=== PATIENT | female | born 1980 | race Caucasian/White ===

== ENCOUNTER 2016-12-05 11:18 | Inpatient (IN) | payer SELFPAY ==
[2016-12-05] VITALS (8 sets, daily range): BP systolic 128–156; BP diastolic 87–110; PULSE 16–107; RESP 16–18; TEMP 98.5–99.6; O2SAT 98–100
[~2016-12-05] VITALS: Ht 160 cm; Wt 86.2 kg
[2016-12-05] MEDS ORDERED: SUBO8MIS SL (11:58)
[2016-12-05 12:00] LABS: BLOOD, URINE TRACE (NEG); GLUCOSE,URINE NEG (NEG); KETONE, URINE 40 mg/dL (NEG); NITRITE,URINE NEG (NEG)
[2016-12-05 12:06] LABS: METHOD OF COLLECTION CLEAN CATCH
[2016-12-05 12:07] LABS: URINE COLOR DARK-YELLOW (YELLW/STRAW)
[2016-12-05 12:08] LABS: BACTERIA, URINE MANY /hpf; COMMENT (UR) CULTURE INDICATED; CULTURE IF INDICATED CULTURE INDICATED; RBC, URINE 0-3 /hpf (0-3); SQUAMOUS EPITHELIAL CELL URINE > 8 /hpf (0-5)
[2016-12-05] MEDS ORDERED: ONDANSETRON HCL 4 MG/2 ML VIAL IV PUSH ONE (12:30)
[2016-12-05] MEDS ORDERED: MORPHINE SULFATE 4 MG/ML INJ IV PUSH ONE ×2 (12:30→14:30)
[2016-12-05] MEDS ORDERED: SODIUM CHLORIDE 0.9% FLUSH 5 ML FLUSH IVF PRN (12:30)
[2016-12-05] MEDS ORDERED: SODIUM CHLOR 0.9% 1000 ML INJ 1,000 ML IV ONE (12:30)
--- NOTE | 2016-12-05 12:58 | PD ---
HPI Chief Complaint: Abdominal Pain Time Seen by Provider: 12:04 Travel History International Travel<30 days: No Contact w/Intl Traveler<30days: No Traveled to known affect area: No History of Present Illness HPI This is a 36-year-old female who presents to the emergency department with nausea, multiple episodes of vomiting and epigastric and right upper quadrant abdominal pain, constant, severe, radiating to her back. She says she's felt feverish today. She's never had pain like this before. She says it hurts to eat and she feels like she has to burp but she can't. She says she has been somewhat constipated but had a bowel movement yesterday. She denies any dysuria , frequency or urgency and denies any vaginal discharge. Rest surgery on her abdomen. She does have a remote history of IV drug use. PFSH Past Medical History Anxiety: Yes Diminished Hearing: No Medical other: Yes (hx drug abuse) Musculoskeletal: Yes (CHRONICK NECK,BACK PAIN) Immunizations Current: Yes Tetanus Vaccination: Unknown Influenza Vaccination: No ?: Not LMP: 3 weeks ago Tubal Ligation: Yes Past Surgical History Section: Yes (X 1) Social History Alcohol Use: Yes (occ) Tobacco Use: Yes (1PPD) Substance Use: Yes (off suboxone since aug denies currently) Allergies-Medications (Allergen,Severity, Reaction): Coded Allergies: No Known Allergies (Verified , 12/05/16) Reported Meds & Prescriptions Reported Meds & Active Scripts Active Reported Suboxone Sublingual Film (Buprenorphine-Naloxone Sublingual Film) 8-2 Mg Film 1 Film SL DAILY Unique ID number required: Review of Systems Except as stated in HPI: all other systems reviewed are Neg Physical Exam Narrative GENERAL: Uncomfortable appearing, writhing in bed SKIN: Warm and dry. HEAD: Atraumatic. Normocephalic. EYES: Pupils equal and round. No injection or drainage. ENT: Moist mucous membranes NECK: Trachea midline. CARDIOVASCULAR: Regular rate and rhythm. No murmur appreciated. RESPIRATORY: Clear to auscultation. Breath sounds equal bilaterally. GASTROINTESTINAL: Abdomen soft, tender to palpation in the right upper quadrant and epigastrium with a positive Church sign MUSCULOSKELETAL: No obvious deformities. NEUROLOGICAL: Awake and alert. No obvious cranial nerve deficits. Moving all extremities. PSYCHIATRIC: Appropriate mood and affect; insight and judgment normal. Data Data Last Documented VS Vital Signs Date Time Temp Pulse Resp B/P Pulse Ox O2 Delivery O2 Flow Rate FiO2 12/05/16 14:24 87 18 153/87 99 Room Air 12/05/16 11:39 99.2 Orders Urinalysis - C+S If Indicated (12/05/16 11:32) Ed Urine Pregnancytest Poc (12/05/16 11:32) Urine Culture (12/05/16 11:50) Complete Blood Count With Diff (12/05/16 12:27) Comprehensive Metabolic Panel (12/05/16 12:27) Lipase (12/05/16 12:27) Iv Access Insert/Monitor (12/05/16 12:27) Ecg Monitoring (12/05/16 12:27) Oximetry (12/05/16 12:27) Sodium Chloride 0.9% Flush (Ns Flush) (12/05/16 12:30) Ed Poc Ultrasound (12/05/16 12:27) Morphine Inj (Morphine Inj) (12/05/16 12:30) Sodium Chlor 0.9% 1000 Ml Inj (Ns 1000 M (12/05/16 12:30) Ondansetron Inj (Zofran Inj) (12/05/16 12:30) Us Abdomen Gallbladder (12/05/16 ) Piperacil-Tazo 3.375 Gm Premix (Zosyn 3. (12/05/16 14:15) Morphine Inj (Morphine Inj) (12/05/16 14:30) Admit Order (Ed Use Only) (12/05/16 14:24) Labs Laboratory Tests Test 12/05/16 12/05/16 11:50 13:15 Urine Collection Type CLEAN CATCH Urine Color DARK-YELLOW Urine Turbidity CLEAR Urine pH 6.0 Urine Specific [place] 1.028 Urine Protein TRACE mg/dL Urine Glucose (UA) NEG mg/dL Urine Ketones 40 mg/dL Urine Occult Blood TRACE Urine Nitrite NEG Urine Bilirubin SMALL Urine Leukocyte Esterase NEG Urine RBC 0-3 /hpf Urine WBC 3-5 /hpf Urine Squamous Epithelial > 8 /hpf Cells Urine Bacteria MANY /hpf Microscopic Urinalysis Comment CULTURE INDICATED Urine Collection Time 11:50 White Blood Count 11.5 TH/MM3 Red Blood Count 5.03 MIL/MM3 Hemoglobin 14.3 GM/DL Hematocrit 43.2 % Mean Corpuscular Volume 85.9 FL Mean Corpuscular Hemoglobin 28.4 PG Mean Corpuscular Hemoglobin 33.1 % Concent Red Cell Distribution Width 11.9 % Platelet Count 228 TH/MM3 Mean Platelet Volume 6.9 FL Neutrophils (%) (Auto) 84.4 % Lymphocytes (%) (Auto) 11.8 % Monocytes (%) (Auto) 3.2 % Eosinophils (%) (Auto) 0.3 % Basophils (%) (Auto) 0.3 % Neutrophils # (Auto) 9.7 TH/MM3 Lymphocytes # (Auto) 1.4 TH/MM3 Monocytes # (Auto) 0.4 TH/MM3 Eosinophils # (Auto) 0.0 TH/MM3 Basophils # (Auto) 0.0 TH/MM3 CBC Comment DIFF FINAL Differential Comment Sodium Level 140 MEQ/L Potassium Level 4.2 MEQ/L Chloride Level 107 MEQ/L Carbon Dioxide Level 23.4 MEQ/L Anion Gap 10 MEQ/L Blood Urea Nitrogen 13 MG/DL Creatinine 0.80 MG/DL Estimat Glomerular Filtration 81 ML/MIN Rate Random Glucose 85 MG/DL Calcium Level 9.0 MG/DL Total Bilirubin 4.5 MG/DL Aspartate Amino Transf 243 U/L (AST/SGOT) Alanine Aminotransferase 238 U/L (ALT/SGPT) Alkaline Phosphatase 144 U/L Total Protein 8.1 GM/DL Albumin 3.9 GM/DL Lipase 211 U/L [facility] Medical Decision Making Medical Screen Exam Complete: Yes Emergency Medical Condition: Yes Interpretation(s) Afebrile, tachycardic, hypertensive Leukocytosis Left shift Total bilirubin is 4.5 Transaminitis with elevated alkaline phosphatase Analysis: Contaminated Last 24 hours Impressions Gall Bladder Ultrasound 12/05/16 0000 Signed Impressions: Service Date/Time: Monday, December 05, 2016 13:24 - CONCLUSION: Abnormal gallbladder probably mild acute cholecystitis in spite of the lack of pain. Ambrocio Sifuentes MD FACR Differential Diagnosis Cholelithiasis, cholecystitis, cholangitis, gastritis, pancreatitis Narrative Course This is a 36 year old female who presents to the emergency department with right upper quadrant and epigastric abdominal pain associated with nausea and vomiting. She is placed on a monitor and an IV was established. Bedside ultrasound demonstrated a sonographic Church sign and some pericholecystic fluid concerning for cholecystitis. Total bilirubin on labs is 4.5 and the patient has a leukocytosis consistent with cholangitis. She was given a dose of IV Zosyn as well as pain control and IV hydration. Formal ultrasound confirms cholecystitis. I spoke to both Dr. gutierrez I didn't on-call for gastroenterology and Dr. Barnes tanner rotary drum continuous process for general surgery and the patient will be transported to the main hospital for ERCP and further continued management. Procedures Procedure Narrative Gallbladder ultrasound: Gallbladder was visualized with a stone at the neck of the gallbladder, positive sonographic Church's sign, gallbladder wall thickness is 0.19 cm, unable to visualize cbd Physician Communication Physician Communication Discussed with Anastacio Pryor, Dr. Jordan and Dr. Barnes Diagnosis Primary Impression: Cholangitis due to bile duct calculus with obstruction Admitting Information Admitting Physician Requests: Admit Socorro Anders MD Dec 05, 2016 12:58
[2016-12-05 13:19] LABS: AUTOMATED NEUTROPHIL # 9.7 TH/MM3 (1.8-7.7); BASOPHIL % 0.3 % (0.0-2.0); EOSINOPHIL % 0.3 % (0.0-4.0); HEMATOCRIT 43.2 % (35.0-46.0); HEMO FLAGS DIFF FINAL; LYMPH % 11.8 % (9.0-44.0); LYMPHOCYTE # 1.4 TH/MM3 (1.0-4.8); MEAN CELL VOLUME 85.9 FL (80.0-100.0); MEAN CORPUSCULAR HEMOGLOBIN 28.4 PG (27.0-34.0); MEAN CORPUSCULAR HGB CONC 33.1 % (32.0-36.0); MONO % 3.2 % (0.0-8.0); NEUT % 84.4 % (16.0-70.0); PLATELET COUNT 228 TH/MM3 (150-450); RED BLOOD COUNT 5.03 MIL/MM3 (4.00-5.30); RED CELL DISTRIBUTION WIDTH 11.9 % (11.6-17.2); WHITE BLOOD COUNT 11.5 TH/MM3 (4.0-11.0)
[2016-12-05 13:29] LABS: CHLORIDE 107 MEQ/L (98-107); POTASSIUM 4.2 MEQ/L (3.5-5.1); SODIUM (NA) 140 MEQ/L (136-145)
[2016-12-05 13:33] LABS: ANION GAP 10 MEQ/L (5-15); BICARBONATE 23.4 MEQ/L (21.0-32.0); BLOOD UREA NITROGEN 13 MG/DL (7-18)
[2016-12-05 13:36] LABS: ALT (GPT) 238 U/L (10-53); AST (GOT) 243 U/L (15-37); GLOMERULAR FILTRATION RATE 81 ML/MIN (>89)
[2016-12-05 13:37] LABS: TOTAL BILIRUBIN ADULT 4.5 MG/DL (0.2-1.0)
[2016-12-05 13:39] LABS: ALKALINE PHOSPHATASE 144 U/L (45-117)
--- NOTE | 2016-12-05 14:03 | RADHPO ---
EXAM DATE/TIME: 12/05/2016 13:24 [facility] COMPARISON: No previous studies available for comparison. INDICATIONS : Right upper quadrant pain. MEDICAL HISTORY : Prior substance use. SURGICAL HISTORY : Tubal ligation. section. ENCOUNTER: Initial ACUITY: 3 days PAIN SCORE: 4/10 LOCATION: Right upper quadrant MEASUREMENTS: LIVER: 12.6 cm length COMMON DUCT: 5 mm RIGHT KIDNEY: 10.9 x 4.7 x 5.2 cm FINDINGS: LIVER: Normal echotexture without focal lesion or ductal dilatation. COMMON DUCT: No intraluminal mass or stone visualized. GALLBLADDER: Multiple gallstones are present in the gallbladder. The wall is thickened with pericholecystic fluid present. Patient is not directly tender over the gallbladder. PANCREAS: The visualized portions are within normal limits. RIGHT KIDNEY: No evidence of hydronephrosis, stone, or mass. CONCLUSION: Abnormal gallbladder probably mild acute cholecystitis in spite of the lack of pain. Ambrocio Sifuentes MD FACR on December 05, 2016 at 14:00 Board Certified Radiologist. This report was verified electronically.
[2016-12-05] MEDS ORDERED: PIPERACIL-TAZO 3.375 GM PREMIX 50 ML IV ONE (14:15)
[2016-12-05] MEDS ORDERED: NICOTINE 14 MG/24 HR PATCH TD ONE (14:30)
[2016-12-05] MEDS ORDERED: ONDANSETRON HCL 4 MG/2 ML VIAL IV PRN (15:00)
[2016-12-05] MEDS ORDERED: SODIUM CHLORIDE 0.9% FLUSH 5 ML FLUSH IV PRN (15:00)
[2016-12-05] MEDS ORDERED: ACETAMINOPHEN 325 MG TAB PO PRN (15:00)
[2016-12-05] MEDS: SODIUM CHLOR 0.9% 1000 ML INJ 1,000 ML IV SCH (15:35)
[2016-12-05] MEDS: KETOROLAC TROMETHAMINE 30 MG/ML (IVP) VIAL IVP PRN ×2 (15:56→23:49)
[2016-12-05] MEDS: HYDROmorphone HCL PF 1 MG/ML VIAL IV PRN ×2 (18:25→22:42)
--- NOTE | 2016-12-05 20:01 | RADRPT ---
EXAM DATE/TIME: 12/05/2016 19:33 [facility] COMPARISON: US ABDOMEN - GALLBLADDER, December 05, 2016, 13:24. INDICATIONS : Cholelithiasis. MEDICAL HISTORY : None. SURGICAL HISTORY : section. ENCOUNTER: Initial ACUITY: 1 day PAIN SCORE: 6/10 LOCATION: Abdomen TECHNIQUE: Multiplanar, multisequence magnetic resonance imaging of the abdomen was performed. High-resolution 3D dataset was utilized to reconstruct maximum-intensity projection (MIP) images. FINDINGS: INTRAHEPATIC BILE DUCTS: Within normal limits. No significant anatomical variant is present. EXTRAHEPATIC BILE DUCTS: The common bile duct measures 1- up to 1.2 cm in width distal duct on one reconstructive image raises the question as to a blunted area in the distal duct potentially representing a small stone GALLBLADDER: There are 2 stones noted in the gallbladder measuring up to 1.7 cm in size. Minimal pericholecystic f luid is appreciated.. LIVER: Normal size and signal intensity. No concerning liver lesion is identified on this non-contrast exam. PANCREAS: The main pancreatic duct is normal in size. There is no significant anatomical variant. Signal inte nsity is within normal limits. No mass is visualized on this non-contrast exam. OTHER: The remaining visualized structures demonstrate no acute abnormality on this non-contrast exam. CONCLUSION: 2 gallstones measuring up to 1.7 cm in size with some minimal pericholecystic fluid suggesting acute cholecystitis. Common bile duct is dilated at one up to 1.2 cm in width with the question as to a blunted distal duct, retained stone on one of the reconstruction MRCP images Sherif Rosario MD on December 05, 2016 at 19:55 Board Certified Radiologist. This report was verified electronically.
[2016-12-05] MEDS: SODIUM CHLORIDE 0.9% FLUSH 5 ML FLUSH IV SCH (20:12)
[2016-12-05] MEDS: PIPERACIL-TAZO 4.5 GM PREMIX 100 ML IV SCH (20:12)
--- NOTE | 2016-12-05 20:33 | PD.CONS ---
HPI Service General surgery Consult Requested By Dr. Colbert Reason for Consult Cholecystitis Primary Care Physician No Primary Care Physician History of Present Illness This is a 36-year-old female who presents with nausea vomiting and abdominal pain. About 3 days ago she began to have epigastric and right upper quadrant abdominal pain at that time associated with persistent dry heaving and vomiting. She had some resolution but the next day when she ate she again had pain and some emesis. This is persisted. The pain radiated to her back. She' s also had chills. She has had dark urine. The patient states that he has similar but less severe symptoms about twice a year, most recently 8 months ago. She was evaluated in the emergency department and noted to have leukocytosis as well as elevated liver function enzymes with a bilirubin of 4.5. Ultrasound of the gallbladder showed gallstones and wall thickening with some pericholecystic fluid. Gastroenterology has been consulted and an MRCP ordered. Review of Systems Constitutional: COMPLAINS OF: Fever, Chills Eyes: DENIES: Eye inflammation, Eye pain Respiratory: DENIES: Cough, Shortness of breath Gastrointestinal: COMPLAINS OF: Abdominal pain, Vomiting Integumentary: DENIES: Pruritus, Rash Neurologic: DENIES: Headache, Localized weakness Past Family Social History Past Medical History History of drug abuse Past Surgical History Reported Medications Currently none Allergies: Coded Allergies: No Known Allergies (Verified , 12/05/16) Active Ordered Medications Current Medications Medications (Trade) Dose Ordered Sig/Kathrine Route Start Time Stop Time Status Last Admin (NS 1000 ml Inj) 1,000 ml @ 100 mls/hr Q10H IV 12/05/16 15:00 12/05/16 15:35 (NS Flush) 2 ml UNSCH PRN IV 12/05/16 15:00 IV Flush 2 ml 2 ml BID IV 12/05/16 21:00 (Zosyn 4.5 Gm Premix) 100 ml @ 200 mls/hr Q6H IV 12/05/16 20:00 12/05/16 20:12 (Zofran Inj) 4 mg Q6H PRN IV 12/05/16 15:00 (Tylenol) 650 mg Q6H PRN PO 12/05/16 15:00 (Toradol Inj) 15 mg Q6H PRN IVP 12/05/16 15:00 12/05/16 15:56 (Dilaudid Pf Inj) 1 mg Q4H PRN IV 12/05/16 15:00 12/05/16 18:25 Family History Noncontributory Social History She has not had any alcohol for 3 months. She has a history of present drug abuse and has also been on Suboxone in the past but is currently not. She smokes 1 pack of cigarettes daily. Physical Exam Vital Signs Vital Signs Date Time Temp Pulse Resp B/P Pulse Ox O2 Delivery O2 Flow Rate FiO2 12/05/16 16:53 99.6 85 16 141/91 100 12/05/16 15:51 88 18 128/92 99 Room Air 12/05/16 14:24 87 18 153/87 99 Room Air 12/05/16 13:09 83 18 149/91 100 Room Air 12/05/16 13:08 98 Room Air 12/05/16 11:58 107 18 154/91 98 Room Air 12/05/16 11:39 99.2 101 16 156/110 99 Physical Exam GENERAL: Awake and alert. No acute distress. Cooperative. HEAD: Normocephalic. Atraumatic. EYES: Pupils equal round and reactive to light bilaterally. No scleral icterus. CHEST: Lungs clear to auscultation bilaterally with no wheezing or rhonchi. No respiratory distress. CARDIOVASCULAR: Regular rate and rhythm. ABDOMEN: Tender in the epigastrium and right upper quadrant with positive Church sign. No rebound or guarding. Otherwise soft and nontender. EXTREMITIES: No cyanosis or edema. SKIN: Warm, dry, nonjaundiced. Laboratory Laboratory Tests Test 12/05/16 12/05/16 11:50 13:15 Urine Collection Type CLEAN CATCH Urine Color DARK-YELLOW Urine Turbidity CLEAR Urine pH 6.0 Urine Specific [place] 1.028 Urine Protein TRACE Urine Glucose (UA) NEG Urine Ketones 40 Urine Occult Blood TRACE Urine Nitrite NEG Urine Bilirubin SMALL Urine Leukocyte Esterase NEG Urine RBC 0-3 Urine WBC 3-5 Urine Squamous Epithelial > 8 Cells Urine Bacteria MANY Microscopic Urinalysis Comment CULTURE INDICATED Urine Collection Time 11:50 White Blood Count 11.5 Red Blood Count 5.03 Hemoglobin 14.3 Hematocrit 43.2 Mean Corpuscular Volume 85.9 Mean Corpuscular Hemoglobin 28.4 Mean Corpuscular Hemoglobin 33.1 Concent Red Cell Distribution Width 11.9 Platelet Count 228 Mean Platelet Volume 6.9 Neutrophils (%) (Auto) 84.4 Lymphocytes (%) (Auto) 11.8 Monocytes (%) (Auto) 3.2 Eosinophils (%) (Auto) 0.3 Basophils (%) (Auto) 0.3 Neutrophils # (Auto) 9.7 Lymphocytes # (Auto) 1.4 Monocytes # (Auto) 0.4 Eosinophils # (Auto) 0.0 Basophils # (Auto) 0.0 CBC Comment DIFF FINAL Differential Comment Sodium Level 140 Potassium Level 4.2 Chloride Level 107 Carbon Dioxide Level 23.4 Anion Gap 10 Blood Urea Nitrogen 13 Creatinine 0.80 Estimat Glomerular Filtration 81 Rate Random Glucose 85 Calcium Level 9.0 Total Bilirubin 4.5 Aspartate Amino Transf 243 (AST/SGOT) Alanine Aminotransferase 238 (ALT/SGPT) Alkaline Phosphatase 144 Total Protein 8.1 Albumin 3.9 Lipase 211 Date/Time Procedure Status Source Growth 12/05/16 11:50 Urine Culture Received Urine Clean Catch Pending Result Diagram: 12/05/16 1315 12/05/16 1315 Imaging Last Impressions Gall Bladder Ultrasound 12/05/16 0000 Signed Impressions: Service Date/Time: Monday, December 05, 2016 13:24 - CONCLUSION: Abnormal gallbladder probably mild acute cholecystitis in spite of the lack of pain. Ambrocio Sifuentes MD FACR Cholangiopancreatography MRI 12/05/16 0000 Signed Impressions: Service Date/Time: Monday, December 05, 2016 19:33 - CONCLUSION: 2 gallstones measuring up to 1.7 cm in size with some minimal pericholecystic fluid suggesting acute cholecystitis. Common bile duct is dilated at one up to 1.2 cm in width with the question as to a blunted distal duct, retained stone on one of the reconstruction MRCP images Sherif Rosario MD Assessment and Plan Assessment and Plan 36-year-old female with obstructive jaundice and mild cholecystitis. MRCP has been ordered to evaluate for possible common bile duct stone. Agree with IV antibiotics. The patient will benefit from cholecystectomy when confirmation by MRCP or ERCP of no stones in the common bile duct. I discussed her current disease course as well as possible need for ERCP and the details of laparoscopic and possible open cholecystectomy. She understands and desires to proceed. I will follow results of MRCP and a.m. labs. Cameron,Beny ARROYO Dec 05, 2016 20:33
[2016-12-06] VITALS: BP 141/85; PULSE 93; RESP 16; TEMP 98.7; O2SAT 98
[2016-12-06] MEDS: SODIUM CHLOR 0.9% 1000 ML INJ 1,000 ML IV SCH ×3 (01:00→21:00)
[2016-12-06] MEDS: PIPERACIL-TAZO 4.5 GM PREMIX 100 ML IV SCH ×4 (01:37→22:34)
[2016-12-06] MEDS: HYDROmorphone HCL PF 1 MG/ML VIAL IV PRN ×5 (03:10→22:33)
[2016-12-06 04:10] VITALS: BP 131/72; PULSE 72; RESP 16; TEMP 97.7; O2SAT 98
[2016-12-06] MEDS: KETOROLAC TROMETHAMINE 30 MG/ML (IVP) VIAL IVP PRN (05:54)
[2016-12-06 06:55] LABS: AUTOMATED NEUTROPHIL # 6.1 TH/MM3 (1.8-7.7); BASOPHIL % 0.5 % (0.0-2.0); EOSINOPHIL # 0.1 TH/MM3 (0-0.4); EOSINOPHIL % 1.7 % (0.0-4.0); HEMATOCRIT 36.9 % (35.0-46.0); HEMO FLAGS DIFF FINAL; LYMPH % 20.9 % (9.0-44.0); LYMPHOCYTE # 1.8 TH/MM3 (1.0-4.8); MEAN CELL VOLUME 86.1 FL (80.0-100.0); MEAN CORPUSCULAR HEMOGLOBIN 30.7 PG (27.0-34.0); MEAN CORPUSCULAR HGB CONC 35.7 % (32.0-36.0); MONO % 5.6 % (0.0-8.0); NEUT % 71.3 % (16.0-70.0); PLATELET COUNT 159 TH/MM3 (150-450); RED BLOOD COUNT 4.28 MIL/MM3 (4.00-5.30); RED CELL DISTRIBUTION WIDTH 12.8 % (11.6-17.2); WHITE BLOOD COUNT 8.5 TH/MM3 (4.0-11.0)
[2016-12-06 07:09] VITALS: BP 133/82; PULSE 76; RESP 17; TEMP 97.7; O2SAT 97
[2016-12-06 07:12] LABS: ALT (GPT) 343 U/L (10-53); ANION GAP 11 MEQ/L (5-15); AST (GOT) 226 U/L (15-37); BICARBONATE 21.9 MEQ/L (21.0-32.0); CHLORIDE 106 MEQ/L (98-107); GLOMERULAR FILTRATION RATE 82 ML/MIN (>89); SODIUM (NA) 139 MEQ/L (136-145)
[2016-12-06 07:14] LABS: ALKALINE PHOSPHATASE 186 U/L (45-117); TOTAL BILIRUBIN ADULT 7.6 MG/DL (0.2-1.0)
[2016-12-06 07:15] LABS: BLOOD UREA NITROGEN 15 MG/DL (7-18)
[2016-12-06] MEDS: SODIUM CHLORIDE 0.9% FLUSH 5 ML FLUSH IV SCH ×2 (09:00→21:00)
--- NOTE | 2016-12-06 09:57 | HHI.HP ---
[facility] Service [facility] Primary Care Physician No Primary Care Physician Admission Diagnosis cholangitis Diagnoses: (1) Acute cholecystitis Diagnosis: Principal Chief Complaint: abdominal pain Travel History International Travel<30 Days: No Contact w/Intl Traveler <30 Da: No Traveled to Known Affected Are: No History of Present Illness patient is a 36 y/o female with no significant past medical history who presented with abdominal pain. she says that the pain started 3-4 days ago. pain was more or less epigastric with some radiation to the RUQ. pain was moderate in intensity. it was associated with nausea and vomiting. she says that the pain initially subsided but when she tried to eat , the pain came back and got worse. she had a low grade fever and chills at home. she says that she had episodes of this type of abdominal pain in the past but it didn't stay that long. Review of Systems Constitutional: COMPLAINS OF: Fever, Chills, DENIES: Weight loss, Night Sweats Eyes: DENIES: Blurred vision, Diplopia, Vision loss, Double Vision Ears, nose, mouth, throat: DENIES: Tinnitus, Vertigo, Throat pain, Epistaxis Respiratory: DENIES: Apneas, Cough, Snoring, Wheezing, Hemoptysis, Sputum production, Shortness of breath Cardiovascular: DENIES: Chest pain, Palpitations, Syncope, Dyspnea on Exertion , PND, Lower Extremity Edema, Orthopnea, Claudication Gastrointestinal: COMPLAINS OF: Abdominal pain, Nausea, Vomiting, DENIES: Black stools, Bloody stools, Constipation, Diarrhea, Difficulty Swallowing, Anorexia Genitourinary: DENIES: Urinary frequency, Urgency, Hematuria, Dysuria Musculoskeletal: DENIES: Joint pain, Muscle aches, Stiffness, Joint Swelling Integumentary: DENIES: Rash Neurologic: DENIES: Abnormal gait, Headache, Localized weakness, Paresthesias, Seizures, Speech Problems, Tremor, Poor Balance Psychiatric: DENIES: Anxiety, Confusion, Mood changes, Depression, Hallucinations, Agitation, Suicidal Ideation, Homicidal Ideation, Delusions Past Family Social History Past Medical History not significant. Past Surgical History dental surgery. Reported Medications none reported. Allergies: Coded Allergies: No Known Allergies (Verified , 12/05/16) Active Ordered Medications Current Medications IV Flush (NS Flush) 2 ml UNSCH PRN IVF FLUSH AFTER USING IV ACCESS; Start at 12:30; Stop 12/05/16 at 15:02; Status DC Morphine Sulfate 4 mg 4 mg ONCE ONCE IV PUSH Last administered on 12/05/16 13: 00; Start 12/05/16 at 12:30; Stop 12/05/16 at 12:31; Status DC Sodium Chloride (NS 1000 ml Inj) 1,000 ml @ 999 mls/hr BOLUS ONCE IV Last administered on 12/05/16 13:00; Start 12/05/16 at 12:30; Stop 12/05/16 at 13:30; Status DC Ondansetron HCl 4 mg 4 mg ONCE ONCE IV PUSH Last administered on 12/05/16 13: 00; Start 12/05/16 at 12:30; Stop 12/05/16 at 12:31; Status DC Piperacillin Sod/ Tazobactam Sod (Zosyn 3.375 Gm Premix) 50 ml @ 100 mls/hr ONCE ONCE IV Last administered on 12/05/16 14:12; Start 12/05/16 at 14:15; Stop 12/05/16 at 14:44; Status DC Morphine Sulfate (Morphine Inj) 4 mg ONCE ONCE IV PUSH Last administered on 14:20; Start 12/05/16 at 14:30; Stop 12/05/16 at 14:31; Status DC Nicotine 1 patch 1 patch ONCE ONCE TD Last administered on 12/05/16 14:46; Start 12/05/16 at 14:30; Stop 12/05/16 at 14:31; Status DC Sodium Chloride (NS 1000 ml Inj) 1,000 ml @ 100 mls/hr Q10H IV Last administered on 12/05/16 15:35; Start 12/05/16 at 15:00 IV Flush (NS Flush) 2 ml UNSCH PRN IV FLUSH AFTER USING IV ACCESS; Start at 15:00 IV Flush 2 ml 2 ml BID IV ; Start 12/05/16 at 21:00 Piperacillin Sod/ Tazobactam Sod (Zosyn 4.5 Gm Premix) 100 ml @ 200 mls/hr Q6H IV Last administered on 12/06/16 01:37; Start 12/05/16 at 20:00 Ondansetron HCl (Zofran Inj) 4 mg Q6H PRN IV NAUSEA OR VOMITING; Start 12/05/16 at 15:00 Acetaminophen (Tylenol) 650 mg Q6H PRN PO FEVER >101F, headache; Start 12/05/16 at 15:00 Ketorolac Tromethamine (Toradol Inj) 15 mg Q6H PRN IVP PAIN SCALE 6 TO 10 Last administered on 12/06/16 05:54; Start 12/05/16 at 15:00 Hydromorphone HCl (Dilaudid Pf Inj) 1 mg Q4H PRN IV BREAKTHROUGH PAIN Last administered on 12/06/16 07:50; Start 12/05/16 at 15:00 Family History hypertension in father and diabetes in mother. Physical Exam Vital Signs Vital Signs Date Time Temp Pulse Resp B/P Pulse Ox O2 Delivery O2 Flow Rate FiO2 12/06/16 07:09 97.7 76 17 133/82 97 12/06/16 04:10 97.7 72 16 131/72 98 12/06/16 00:00 98.7 93 16 141/85 98 12/05/16 20:10 98.5 85 16 145/93 99 12/05/16 16:53 99.6 85 16 141/91 100 12/05/16 15:51 88 18 128/92 99 Room Air 12/05/16 14:24 87 18 153/87 99 Room Air 12/05/16 13:09 83 18 149/91 100 Room Air 12/05/16 13:08 98 Room Air 12/05/16 11:58 107 18 154/91 98 Room Air 12/05/16 11:39 99.2 101 16 156/110 99 Physical Exam GENERAL: This is a well-nourished, well-developed patient, in no apparent distress. SKIN: No rashes, ecchymoses or lesions. Cool and dry. HEAD: Atraumatic. Normocephalic. No temporal or scalp tenderness. EYES: Pupils equal round and reactive. Extraocular motions intact. No scleral icterus. No injection or drainage. ENT: Nose without bleeding, purulent drainage or septal hematoma. Throat without erythema, tonsillar hypertrophy or exudate. Uvula midline. Airway patent. NECK: Trachea midline. No JVD or lymphadenopathy. Supple, nontender, no meningeal signs. CARDIOVASCULAR: Regular rate and rhythm without murmurs, gallops, or rubs. RESPIRATORY: Clear to auscultation. Breath sounds equal bilaterally. No wheezes , rales, or rhonchi. GASTROINTESTINAL: Abdomen soft, epigastric and RUQ tenderness, nondistended. No hepato-splenomegaly, or palpable masses. No guarding. MUSCULOSKELETAL: Extremities without clubbing, cyanosis, or edema. No joint tenderness, effusion, or edema noted. No calf tenderness. Negative Homans sign bilaterally. NEUROLOGICAL: Awake and alert. Cranial nerves II through XII intact. Motor and sensory grossly within normal limits. Five out of 5 muscle strength in all muscle groups. Normal speech. Laboratory Laboratory Tests Test 12/05/16 12/05/16 12/06/16 11:50 13:15 06:23 Urine Collection Type CLEAN CATCH Urine Color DARK-YELLOW Urine Turbidity CLEAR Urine pH 6.0 Urine Specific [place] 1.028 Urine Protein TRACE Urine Glucose (UA) NEG Urine Ketones 40 Urine Occult Blood TRACE Urine Nitrite NEG Urine Bilirubin SMALL Urine Leukocyte Esterase NEG Urine RBC 0-3 Urine WBC 3-5 Urine Squamous Epithelial > 8 Cells Urine Bacteria MANY Microscopic Urinalysis Comment CULTURE INDICATED Urine Collection Time 11:50 White Blood Count 11.5 8.5 Red Blood Count 5.03 4.28 Hemoglobin 14.3 13.1 Hematocrit 43.2 36.9 Mean Corpuscular Volume 85.9 86.1 Mean Corpuscular Hemoglobin 28.4 30.7 Mean Corpuscular Hemoglobin 33.1 35.7 Concent Red Cell Distribution Width 11.9 12.8 Platelet Count 228 159 Mean Platelet Volume 6.9 7.2 Neutrophils (%) (Auto) 84.4 71.3 Lymphocytes (%) (Auto) 11.8 20.9 Monocytes (%) (Auto) 3.2 5.6 Eosinophils (%) (Auto) 0.3 1.7 Basophils (%) (Auto) 0.3 0.5 Neutrophils # (Auto) 9.7 6.1 Lymphocytes # (Auto) 1.4 1.8 Monocytes # (Auto) 0.4 0.5 Eosinophils # (Auto) 0.0 0.1 Basophils # (Auto) 0.0 0.0 CBC Comment DIFF FINAL DIFF FINAL Differential Comment Sodium Level 140 139 Potassium Level 4.2 4.0 Chloride Level 107 106 Carbon Dioxide Level 23.4 21.9 Anion Gap 10 11 Blood Urea Nitrogen 13 15 Creatinine 0.80 0.79 Estimat Glomerular Filtration 81 82 Rate Random Glucose 85 88 Calcium Level 9.0 8.5 Total Bilirubin 4.5 7.6 Aspartate Amino Transf 243 226 (AST/SGOT) Alanine Aminotransferase 238 343 (ALT/SGPT) Alkaline Phosphatase 144 186 Total Protein 8.1 6.2 Albumin 3.9 3.4 Lipase 211 Date/Time Procedure Status Source Growth 12/05/16 11:50 Urine Culture Received Urine Clean Catch Pending Result Diagram: 12/06/16 0623 12/06/16 0623 Imaging Last Impressions Gall Bladder Ultrasound 12/05/16 0000 Signed Impressions: Service Date/Time: Monday, December 05, 2016 13:24 - CONCLUSION: Abnormal gallbladder probably mild acute cholecystitis in spite of the lack of pain. mAbrocio Sifuentes MD FACR Cholangiopancreatography MRI 12/05/16 0000 Signed Impressions: Service Date/Time: Monday, December 05, 2016 19:33 - CONCLUSION: 2 gallstones measuring up to 1.7 cm in size with some minimal pericholecystic fluid suggesting acute cholecystitis. Common bile duct is dilated at one up to 1.2 cm in width with the question as to a blunted distal duct, retained stone on one of the reconstruction MRCP images Sherif Rosario MD Assessment and Plan Assessment and Plan A/P - acute cholecystitis/ elevated LFT's keep NPO and continue IV fluid and IV antibiotic. continue pain control. surgery consult appreciated- awaiting GI evaluation. Discussed Condition With the patient. Physician Certification 2 Midnight Certification Type: Admission for Inpatient Services Order for Inpatient Services The services are ordered in accordance with Medicare regulations or non- Medicare payer requirements, as applicable. In the case of services not specified as inpatient-only, they are appropriately provided as inpatient services in accordance with the 2-midnight benchmark. Estimated LOS (days): 2 days is the estimated time the patient will need to remain in the hospital, assuming treatment plan goals are met and no additional complications. Post-Hospital Plan: Home Katty Atkins MD Dec 06, 2016 09:56
[2016-12-06] MEDS ORDERED: IOHEXOL 350 MG/ML 100 ML BTL (for RAD DIAG) OTHER ONE (10:45)
[2016-12-06] MEDS ORDERED: GLUCAGON 1 MG/ML VIAL IV ONE (10:45)
--- NOTE | 2016-12-06 11:37 | MR ---
cc: JACOB ROCA MOHAMMADREZA MD DATE OF : 1980 REFERRING PHYSICIAN: Dr. Atkins DATE: 12/06/2016 PROCEDURE: ERCP with sphincterotomy, stone extraction and stent placement. INDICATIONS: The patient is a 36 year-old lady who had dilated common bile duct, elevated liver function tests, symptom of cholangitis. PROCEDURE NOTE After informing the patient of the procedure and complication, consent was signed. The patient was placed on her left her back. She was intubated by anesthesia. After adequate sedation, she was placed on her abdomen in prone position. The scope was placed in the mouth advanced under video guidance to the second portion of the duodenum. The ampulla was identified. Cholangiogram was performed and there was a filling defect in the distal duct. Sphincterotomy was done sweeping the duct with balloon size 15 millimeter, revealed one stone. The patient was passing white material consistent with pus. Because of that, I placed a stent. There was not significant flow of bile, so I placed a stent size 10 Thai, 9 cm without any difficulty. The procedure terminated at that time. FINDINGS EGD, limited exam normal. Pancreatic duct normal. Common bile duct dilated with filling defect consistent with stone, status post removal and stent placement RECOMMENDATIONS 1. N.p.o. 2. Lap torrey. 3. LFTs and CBC in the morning 4. ERCP with stent removal in one month. MD JUSTIN Arizmendi/GORDY /11:24 AM /11:29 AM
[2016-12-06] MEDS ORDERED: *MEPERIDINE 25 MG INJ VIAL PERIprocedural Use ONLY ONE (11:41)
[2016-12-06] MEDS ORDERED: DO NOT ADM ANY ANTICOAGULANT DRUGS XX PRN (12:00)
[2016-12-06] MEDS ORDERED: PROPOFOL 200 MG/20 ML AMP IV ONE (12:14)
--- NOTE | 2016-12-06 12:15 | RADRPT ---
EXAM DATE/TIME: 12/06/2016 10:47 [place] COMPARISON: MRCP W/O CONTRAST, December 05, 2016, 19:33. INDICATIONS : Obstruction. FLUORO TIME: 6:14 minutes IMAGE COUNT: 4 CONTRAST: Instilled by Ordering Physician MEDICAL HISTORY : None. SURGICAL HISTORY : section. ENCOUNTER: Initial ACUITY: 1 day PAIN SCORE: Non-responsive. LOCATION: Abdomen. FINDINGS: An ERCP and stent placement was performed. Four films were submitted. Balloon occlusion of the common duct reveals no residual common duct stones. Stent would appear to b e in good position. CONCLUSION: Biliary stent in good position. Ambrocio Sifuentes MD FACR on December 06, 2016 at 11:56 Board Certified Radiologist. This report was verified electronically.
--- NOTE | 2016-12-06 13:31 | HHI.PR ---
Subjective Subjective Notes The patient is status post ERCP with stone extraction and placement of a stent earlier today. She is still somewhat groggy and has complaints of pain in her throat, but minimal abdominal pain. She has had no nausea or vomiting. Objective Vitals/I&O Vital Signs Date Time Temp Pulse Resp B/P Pulse Ox O2 Delivery O2 Flow Rate FiO2 12/06/16 12:00 99.2 88 16 117/89 97 Room Air Labs Laboratory Tests Test 12/06/16 06:23 White Blood Count 8.5 Red Blood Count 4.28 Hemoglobin 13.1 Hematocrit 36.9 Mean Corpuscular Volume 86.1 Mean Corpuscular Hemoglobin 30.7 Mean Corpuscular Hemoglobin 35.7 Concent Red Cell Distribution Width 12.8 Platelet Count 159 Mean Platelet Volume 7.2 Neutrophils (%) (Auto) 71.3 Lymphocytes (%) (Auto) 20.9 Monocytes (%) (Auto) 5.6 Eosinophils (%) (Auto) 1.7 Basophils (%) (Auto) 0.5 Neutrophils # (Auto) 6.1 Lymphocytes # (Auto) 1.8 Monocytes # (Auto) 0.5 Eosinophils # (Auto) 0.1 Basophils # (Auto) 0.0 CBC Comment DIFF FINAL Differential Comment Sodium Level 139 Potassium Level 4.0 Chloride Level 106 Carbon Dioxide Level 21.9 Anion Gap 11 Blood Urea Nitrogen 15 Creatinine 0.79 Estimat Glomerular Filtration 82 Rate Random Glucose 88 Calcium Level 8.5 Total Bilirubin 7.6 Aspartate Amino Transf 226 (AST/SGOT) Alanine Aminotransferase 343 (ALT/SGPT) Alkaline Phosphatase 186 Total Protein 6.2 Albumin 3.4 Date/Time Procedure Status Source Growth 12/05/16 11:50 Urine Culture - Preliminary Resulted Urine Clean Catch IMMATURE GROWTH - REINCUBATE Radiology Last Impressions Gall Bladder Ultrasound 12/05/16 0000 Signed Impressions: Service Date/Time: Monday, December 05, 2016 13:24 - CONCLUSION: Abnormal gallbladder probably mild acute cholecystitis in spite of the lack of pain. Ambrocio Sifuentes MD FACR Cholangiopancreatography MRI 12/05/16 0000 Signed Impressions: Service Date/Time: Monday, December 05, 2016 19:33 - CONCLUSION: 2 gallstones measuring up to 1.7 cm in size with some minimal pericholecystic fluid suggesting acute cholecystitis. Common bile duct is dilated at one up to 1.2 cm in width with the question as to a blunted distal duct, retained stone on one of the reconstruction MRCP images Sherif Rosario MD Cardiovascular: Regular Lungs: Clear Abdomen: Non-distended, Non-tender, BS normal Extremities: No edema A/P Assessment and Plan The patient came into the hospital with gallstone pancreatitis and choledocholithiasis. She is now status post stone extraction from the common bile duct by Dr. Jordan; he also placed a common bile duct stent. She may be a candidate for laparoscopic cholecystectomy in the morning. I will therefore make her nothing by mouth after midnight and have obtained an operative permit. Dr. Barnes will see her in the morning and decide as to whether surgery will be performed tomorrow or at a later time. Abdiel Loyola MD Dec 06, 2016 13:31
[2016-12-06 15:00] VITALS: BP 124/68; PULSE 97; RESP 17; TEMP 99.2; O2SAT 97
[2016-12-06 20:55] VITALS: BP 124/73; PULSE 88; RESP 16; TEMP 99.1; O2SAT 97
[2016-12-07 00:44] VITALS: BP 112/66; PULSE 80; RESP 16; TEMP 96.7; O2SAT 96
[2016-12-07] MEDS: PIPERACIL-TAZO 4.5 GM PREMIX 100 ML IV SCH ×4 (00:49→22:02)
[2016-12-07] MEDS: KETOROLAC TROMETHAMINE 30 MG/ML (IVP) VIAL IVP PRN ×4 (00:53→21:05)
[2016-12-07] MEDS: HYDROmorphone HCL PF 1 MG/ML VIAL IV PRN ×5 (03:53→21:00)
[2016-12-07 07:04] LABS: AUTOMATED NEUTROPHIL # 5.3 TH/MM3 (1.8-7.7); BASOPHIL % 0.4 % (0.0-2.0); EOSINOPHIL # 0.1 TH/MM3 (0-0.4); EOSINOPHIL % 1.7 % (0.0-4.0); HEMO FLAGS DIFF FINAL; LYMPHOCYTE # 1.9 TH/MM3 (1.0-4.8); MEAN CELL VOLUME 86.9 FL (80.0-100.0); MEAN CORPUSCULAR HEMOGLOBIN 30.3 PG (27.0-34.0); MEAN CORPUSCULAR HGB CONC 34.8 % (32.0-36.0); MONO % 6.2 % (0.0-8.0); NEUT % 67.7 % (16.0-70.0); PLATELET COUNT 161 TH/MM3 (150-450); RED BLOOD COUNT 4.03 MIL/MM3 (4.00-5.30); WHITE BLOOD COUNT 7.8 TH/MM3 (4.0-11.0)
[2016-12-07 07:21] LABS: INDIRECT BILIRUBIN 1.6 MG/DL (0.0-0.8); TOTAL BILIRUBIN ADULT 5.5 MG/DL (0.2-1.0)
[2016-12-07 07:27] VITALS: BP 102/61; PULSE 71; RESP 16; TEMP 96.8; O2SAT 97
[2016-12-07] MEDS: SODIUM CHLORIDE 0.9% FLUSH 5 ML FLUSH IV SCH ×2 (08:02→22:03)
[2016-12-07] MEDS: SODIUM CHLOR 0.9% 1000 ML INJ 1,000 ML IV SCH ×2 (08:02→16:23)
--- NOTE | 2016-12-07 08:20 | HHI.PR ---
Subjective Remarks resting comfortably with no distress. epigastric pain is better. no nausea or vomiting. afebrile. Objective Vitals Vital Signs Date Time Temp Pulse Resp B/P Pulse Ox O2 Delivery O2 Flow Rate FiO2 12/07/16 00:44 96.7 80 16 112/66 96 12/06/16 20:55 99.1 88 16 124/73 97 12/06/16 15:00 99.2 97 17 124/68 97 12/06/16 12:00 99.2 88 16 117/89 97 Room Air 12/06/16 11:45 97 15 126/89 96 Room Air 12/06/16 11:30 99.3 102 11 135/86 95 Room Air I/O 12/06/16 12/06/16 12/06/16 12/07/16 12/07/16 12/07/16 07:00 15:00 23:00 07:00 15:00 23:00 Intake Total 0 ml 800 ml 0 ml 0 ml Output Total 10 ml Balance 0 ml 790 ml 0 ml 0 ml Intake Oral 0 ml 0 ml 0 ml 0 ml IV Total 100 ml Other 700 ml Output Estimated Blood Loss 10 ml # Voids 3 3 6 6 # Bowel Movements 0 0 0 0 Result Diagram: 12/07/16 0631 12/06/16 0623 Imaging Last Impressions GI Procedure 12/06/16 0000 Signed Impressions: Service Date/Time: Tuesday, December 06, 2016 10:47 - CONCLUSION: Biliary stent in good position. Ambrocio Sifuentes MD FACR Gall Bladder Ultrasound 12/05/16 0000 Signed Impressions: Service Date/Time: Monday, December 05, 2016 13:24 - CONCLUSION: Abnormal gallbladder probably mild acute cholecystitis in spite of the lack of pain. Ambrocio Sifuentes MD FACR Cholangiopancreatography MRI 12/05/16 0000 Signed Impressions: Service Date/Time: Monday, December 05, 2016 19:33 - CONCLUSION: 2 gallstones measuring up to 1.7 cm in size with some minimal pericholecystic fluid suggesting acute cholecystitis. Common bile duct is dilated at one up to 1.2 cm in width with the question as to a blunted distal duct, retained stone on one of the reconstruction MRCP images Sherif Rosario MD Objective Remarks GENERAL: This is a well-nourished, well-developed patient, in no apparent distress. CARDIOVASCULAR: Regular rate and irregular rhythm without murmurs, gallops, or rubs. RESPIRATORY: Clear to auscultation. Breath sounds equal bilaterally. No wheezes , rales, or rhonchi. GASTROINTESTINAL: Abdomen soft, mild epigastric tenderness, nondistended. Normal, active bowel sounds MUSCULOSKELETAL: Extremities without clubbing, cyanosis, or edema. NEURO: Alert & Oriented x4 to person, place, time, situation. Moves all ext x4 Procedures ERCP Medications and IVs Current Medications IV Flush (NS Flush) 2 ml UNSCH PRN IVF FLUSH AFTER USING IV ACCESS; Start at 12:30; Stop 12/05/16 at 15:02; Status DC Morphine Sulfate 4 mg 4 mg ONCE ONCE IV PUSH Last administered on 12/05/16 13: 00; Start 12/05/16 at 12:30; Stop 12/05/16 at 12:31; Status DC Sodium Chloride (NS 1000 ml Inj) 1,000 ml @ 999 mls/hr BOLUS ONCE IV Last administered on 12/05/16 13:00; Start 12/05/16 at 12:30; Stop 12/05/16 at 13:30; Status DC Ondansetron HCl 4 mg 4 mg ONCE ONCE IV PUSH Last administered on 12/05/16 13: 00; Start 12/05/16 at 12:30; Stop 12/05/16 at 12:31; Status DC Piperacillin Sod/ Tazobactam Sod (Zosyn 3.375 Gm Premix) 50 ml @ 100 mls/hr ONCE ONCE IV Last administered on 12/05/16 14:12; Start 12/05/16 at 14:15; Stop 12/05/16 at 14:44; Status DC Morphine Sulfate (Morphine Inj) 4 mg ONCE ONCE IV PUSH Last administered on 14:20; Start 12/05/16 at 14:30; Stop 12/05/16 at 14:31; Status DC Nicotine 1 patch 1 patch ONCE ONCE TD Last administered on 12/05/16 14:46; Start 12/05/16 at 14:30; Stop 12/05/16 at 14:31; Status DC Sodium Chloride (NS 1000 ml Inj) 1,000 ml @ 100 mls/hr Q10H IV Last administered on 12/07/16 08:02; Start 12/05/16 at 15:00 IV Flush (NS Flush) 2 ml UNSCH PRN IV FLUSH AFTER USING IV ACCESS; Start at 15:00 IV Flush 2 ml 2 ml BID IV Last administered on 12/06/16 21:00; Start 12/05/16 at 21:00 Piperacillin Sod/ Tazobactam Sod (Zosyn 4.5 Gm Premix) 100 ml @ 200 mls/hr Q6H IV Last administered on 12/07/16 08:01; Start 12/05/16 at 20:00 Ondansetron HCl (Zofran Inj) 4 mg Q6H PRN IV NAUSEA OR VOMITING; Start 12/05/16 at 15:00 Acetaminophen (Tylenol) 650 mg Q6H PRN PO FEVER >101F, headache; Start 12/05/16 at 15:00 Ketorolac Tromethamine (Toradol Inj) 15 mg Q6H PRN IVP PAIN SCALE 6 TO 10 Last administered on 12/07/16 07:52; Start 12/05/16 at 15:00 Hydromorphone HCl (Dilaudid Pf Inj) 1 mg Q4H PRN IV BREAKTHROUGH PAIN Last administered on 12/07/16 07:52; Start 12/05/16 at 15:00 Meperidine HCl (*DEMEROL INJ PERIprocedural ONLY) 25 mg STK-MED ONCE .ROUTE Last administered on 12/06/16 11:41; Start 12/06/16 at 11:41; Stop 12/06/16 at 11: 42; Status DC Fentanyl Citrate (fentaNYL INJ) 200 mcg STK-MED ONCE .ROUTE ; Start 12/06/16 at 11:46; Stop 12/06/16 at 11:47; Status DC Miscellaneous Information ALL NURSING DEPARTME... UNSCH PRN XX SEE LABEL COMMENTS; Start 12/06/16 at 12:00; Stop 12/07/16 at 11:59 Iohexol (Omnipaque 350 Inj) 100 ml STK-MED ONCE OTHER Last administered on 10:45; Start 12/06/16 at 10:45; Stop 12/06/16 at 12:12; Status DC Glucagon (Glucagon Inj) 1 mg STK-MED ONCE IV Last administered on 12/06/16t 10: 45; Start 12/06/16 at 10:45; Stop 12/06/16 at 12:12; Status DC Propofol (Diprivan 200 Mg/20 ml Inj) 200 mg STK-MED ONCE IV ; Start 12/06/16 at 12:14; Stop 12/06/16 at 12:15; Status DC A/P Assessment and Plan A/P - acute cholecystitis/pancreatitis/ elevated LFT's s/p ERCP with sphincterotomy, stone extraction and stent placement. keep NPO and continue IV fluid and IV antibiotic. continue pain control. surgery following- possible cholecystectomy. Katty Atkins MD Dec 07, 2016 08:20
--- NOTE | 2016-12-07 08:45 | HHI.PR ---
Subjective Subjective Notes Afebrile. Feels slightly better, some lower upper abdominal pain. Objective Vitals/I&O Vital Signs Date Time Temp Pulse Resp B/P Pulse Ox O2 Delivery O2 Flow Rate FiO2 12/07/16 00:44 96.7 80 16 112/66 96 12/06/16 12:00 Room Air Labs Laboratory Tests Test 12/07/16 06:31 White Blood Count 7.8 Red Blood Count 4.03 Hemoglobin 12.2 Hematocrit 35.0 Mean Corpuscular Volume 86.9 Mean Corpuscular Hemoglobin 30.3 Mean Corpuscular Hemoglobin 34.8 Concent Red Cell Distribution Width 13.0 Platelet Count 161 Mean Platelet Volume 7.1 Neutrophils (%) (Auto) 67.7 Lymphocytes (%) (Auto) 24.0 Monocytes (%) (Auto) 6.2 Eosinophils (%) (Auto) 1.7 Basophils (%) (Auto) 0.4 Neutrophils # (Auto) 5.3 Lymphocytes # (Auto) 1.9 Monocytes # (Auto) 0.5 Eosinophils # (Auto) 0.1 Basophils # (Auto) 0.0 CBC Comment DIFF FINAL Differential Comment Total Bilirubin 5.5 Direct Bilirubin 3.9 Indirect Bilirubin 1.6 Aspartate Amino Transf 113 (AST/SGOT) Alanine Aminotransferase 287 (ALT/SGPT) Alkaline Phosphatase 209 Total Protein 6.7 Albumin 3.2 Lipase [id number] Date/Time Procedure Status Source Growth 12/05/16 11:50 Urine Culture - Preliminary Resulted Urine Clean Catch IMMATURE GROWTH - REINCUBATE Radiology Last Impressions Gall Bladder Ultrasound 12/05/16 0000 Signed Impressions: Service Date/Time: Monday, December 05, 2016 13:24 - CONCLUSION: Abnormal gallbladder probably mild acute cholecystitis in spite of the lack of pain. Ambrocio Sifuentes MD FACR Cholangiopancreatography MRI 12/05/16 0000 Signed Impressions: Service Date/Time: Monday, December 05, 2016 19:33 - CONCLUSION: 2 gallstones measuring up to 1.7 cm in size with some minimal pericholecystic fluid suggesting acute cholecystitis. Common bile duct is dilated at one up to 1.2 cm in width with the question as to a blunted distal duct, retained stone on one of the reconstruction MRCP images Sherif Rosario MD Narrative Exam NAD Abd soft, mild epigastric and RUQ ttp, no rebound or guarding. A/P Assessment and Plan 36 yo F with choledocholithiasis/cholangitis s/p ERCP with stone removal and stent placement, mild cholecystitis. LFTS improving, lipase increased. WBC nml. Overall she is doing ok. I will tentatively plan cholecystectomy tomorrow. I discussed the procedure in detail with her again and she desires to proceed. F/u am labs. Beny Barnes MD Dec 07, 2016 08:45
[2016-12-07 11:29] VITALS: BP 119/65; PULSE 75; RESP 16; TEMP 97.5; O2SAT 97
--- NOTE | 2016-12-07 14:16 | HHI.GIFU ---
Subjective Remarks Ambulating in [place]. States she continues to have pain- about the same. No n/ v. Taking clear liquids. (Keyonna Qureshi) Objective Vitals I&O Vital Signs Date Time Temp Pulse Resp B/P Pulse Ox O2 Delivery O2 Flow Rate FiO2 12/07/16 11:29 97.5 75 16 119/65 97 12/07/16 07:27 96.8 71 16 102/61 97 12/07/16 00:44 96.7 80 16 112/66 96 12/06/16 20:55 99.1 88 16 124/73 97 12/06/16 15:00 99.2 97 17 124/68 97 I/O 12/06/16 12/06/16 12/06/16 12/07/16 12/07/16 12/07/16 07:00 15:00 23:00 07:00 15:00 23:00 Intake Total 0 ml 800 ml 0 ml 0 ml Output Total 10 ml Balance 0 ml 790 ml 0 ml 0 ml Intake Oral 0 ml 0 ml 0 ml 0 ml IV Total 100 ml Other 700 ml Output Estimated Blood Loss 10 ml # Voids 3 3 6 6 # Bowel Movements 0 0 0 0 Laboratory Laboratory Tests Test 12/07/16 06:31 White Blood Count 7.8 Red Blood Count 4.03 Hemoglobin 12.2 Hematocrit 35.0 Mean Corpuscular Volume 86.9 Mean Corpuscular Hemoglobin 30.3 Mean Corpuscular Hemoglobin 34.8 Concent Red Cell Distribution Width 13.0 Platelet Count 161 Mean Platelet Volume 7.1 Neutrophils (%) (Auto) 67.7 Lymphocytes (%) (Auto) 24.0 Monocytes (%) (Auto) 6.2 Eosinophils (%) (Auto) 1.7 Basophils (%) (Auto) 0.4 Neutrophils # (Auto) 5.3 Lymphocytes # (Auto) 1.9 Monocytes # (Auto) 0.5 Eosinophils # (Auto) 0.1 Basophils # (Auto) 0.0 CBC Comment DIFF FINAL Differential Comment Total Bilirubin 5.5 Direct Bilirubin 3.9 Indirect Bilirubin 1.6 Aspartate Amino Transf 113 (AST/SGOT) Alanine Aminotransferase 287 (ALT/SGPT) Alkaline Phosphatase 209 Total Protein 6.7 Albumin 3.2 Lipase 22629 Date/Time Procedure Status Source Growth 12/05/16 11:50 Urine Culture - Final Complete Urine Clean Catch 50-100,000 CFU/ML MIXED GRAM POSITIVE... Imaging Last Impressions GI Procedure 12/06/16 0000 Signed Impressions: Service Date/Time: Tuesday, December 06, 2016 10:47 - CONCLUSION: Biliary stent in good position. Ambrocio Sifuentes MD FACR Gall Bladder Ultrasound 12/05/16 0000 Signed Impressions: Service Date/Time: Monday, December 05, 2016 13:24 - CONCLUSION: Abnormal gallbladder probably mild acute cholecystitis in spite of the lack of pain. Ambrocio Sifuentes MD FACR Cholangiopancreatography MRI 12/05/16 0000 Signed Impressions: Service Date/Time: Monday, December 05, 2016 19:33 - CONCLUSION: 2 gallstones measuring up to 1.7 cm in size with some minimal pericholecystic fluid suggesting acute cholecystitis. Common bile duct is dilated at one up to 1.2 cm in width with the question as to a blunted distal duct, retained stone on one of the reconstruction MRCP images Sherif Rosario MD Physical Exam HEENT: Normocephalic; atraumatic; no jaundice. CHEST: CTA CARDIAC: RRR ABDOMEN: Soft, nondistended, moderate epigastric tenderness; no hepatosplenomegaly; bowel sounds are present in all four quadrants. EXTREMITIES: No clubbing, cyanosis, or edema. SKIN: Normal; no rash; no jaundice. DIRECTOR MEDICAL: No focal deficits; alert and oriented times three. (Keyonna Qureshi TRAINING PERSONNEL SUPERVISOR) Assessment and Plan Plan ASSESSMENT: - Cholelithiasis, Choledocholithiasis. Pt came in for n/v/abdominal pain. Gall Bladder Ultrasound (12/05/16)----> Abnormal gallbladder probably mild acute cholecystitis in spite of the lack of pain. MRCP (12/05/16)------> 2 gallstones measuring up to 1.7 cm in size with some minimal pericholecystic fluid suggesting acute cholecystitis. Common bile duct is dilated at one up to 1.2 cm in width with the question as to a blunted distal duct, retained stone on one of the reconstruction MRCP images. S/P ERCP with sphincterotomy, stone removal, stent placement (12/06/16)----> egd limited but normal, pancreatic duct normal, CBD dilated with filling defects consistent with stone, s/p removal and stent placement. LFTs improving, T. Bili 5.5, AST 113, ALT 28, Alk Phosph 209. Zosyn. GS following possible lap. torrey in am, although patient now has elevated lipase. - Pancreatitis. Lipase 15,290. Clears. IVF. PLAN: - Clear liquids - Cont. IVF - Cont. PPI - Cont. Zosyn - CBC, CMP, Lipase in am - Supportive care - GS following, possible lap. torrey in am - Further recommendations to follow based on results of above - Pt seen and examined by Dr. Daniels and myself and this note is written on his behalf (Keyonna Qureshi) Physician Comments Patient seen and examined Agree with above Continue with current supportive care Monitor labs Possible laparoscopic cholecystectomy tomorrow (Jack Daniels MD) Keyonna Qureshi Dec 07, 2016 14:16 Jack Daniels MD Dec 07, 2016 23:01
[2016-12-07 15:11] VITALS: BP 101/67; PULSE 74; RESP 16; TEMP 97.8; O2SAT 98
[2016-12-07 20:00] VITALS: BP 107/61; PULSE 90; RESP 18; TEMP 98.5; O2SAT 100
[2016-12-08] VITALS (8 sets, daily range): BP systolic 93–123; BP diastolic 49–81; PULSE 66–86; RESP 16–20; TEMP 96.9–98.9; O2SAT 95–100
[2016-12-08] MEDS: PIPERACIL-TAZO 4.5 GM PREMIX 100 ML IV SCH ×4 (00:53→20:00)
[2016-12-08] MEDS: HYDROmorphone HCL PF 1 MG/ML VIAL IV PRN ×5 (00:54→21:02)
[2016-12-08] MEDS: SODIUM CHLOR 0.9% 1000 ML INJ 1,000 ML IV SCH ×2 (03:00→21:03)
[2016-12-08 06:36] LABS: ALKALINE PHOSPHATASE 171 U/L (45-117); ALT (GPT) 172 U/L (10-53); ANION GAP 7 MEQ/L (5-15); AST (GOT) 38 U/L (15-37); BICARBONATE 26.8 MEQ/L (21.0-32.0); BLOOD UREA NITROGEN 5 MG/DL (7-18); CHLORIDE 106 MEQ/L (98-107); GLOMERULAR FILTRATION RATE 92 ML/MIN (>89); POTASSIUM 3.7 MEQ/L (3.5-5.1); SODIUM (NA) 140 MEQ/L (136-145); TOTAL BILIRUBIN ADULT 1.7 MG/DL (0.2-1.0)
--- NOTE | 2016-12-08 08:24 | HHI.PR ---
Subjective Remarks resting comfortably with no distress. abdominal pain is mild. no nausea or vomiting. no fever. Objective Vitals Vital Signs Date Time Temp Pulse Resp B/P Pulse Ox O2 Delivery O2 Flow Rate FiO2 12/08/16 04:00 97.5 66 17 118/80 95 12/08/16 00:00 97.5 71 16 93/49 97 12/07/16 20:00 98.5 90 18 107/61 100 12/07/16 15:11 97.8 74 16 101/67 98 12/07/16 11:29 97.5 75 16 119/65 97 I/O 12/07/16 12/07/16 12/07/16 12/08/16 12/08/16 12/08/16 07:00 15:00 23:00 07:00 15:00 23:00 Intake Total 0 ml 1200 ml 720 ml 1121 ml Output Total 720 ml Balance 0 ml 1200 ml 0 ml 1121 ml Intake Oral 0 ml 1200 ml 720 ml 0 ml IV Total 1121 ml Output Urine Total 720 ml # Voids 6 5 2 # Bowel Movements 0 0 2 0 Result Diagram: 12/07/16 0631 12/08/16 0532 Imaging Last Impressions GI Procedure 12/06/16 0000 Signed Impressions: Service Date/Time: Tuesday, December 06, 2016 10:47 - CONCLUSION: Biliary stent in good position. Ambrocio Sifuentes MD FACR Gall Bladder Ultrasound 12/05/16 0000 Signed Impressions: Service Date/Time: Monday, December 05, 2016 13:24 - CONCLUSION: Abnormal gallbladder probably mild acute cholecystitis in spite of the lack of pain. Ambrocio Sifuentes MD FACR Cholangiopancreatography MRI 12/05/16 0000 Signed Impressions: Service Date/Time: Monday, December 05, 2016 19:33 - CONCLUSION: 2 gallstones measuring up to 1.7 cm in size with some minimal pericholecystic fluid suggesting acute cholecystitis. Common bile duct is dilated at one up to 1.2 cm in width with the question as to a blunted distal duct, retained stone on one of the reconstruction MRCP images Sherif Rosario MD Objective Remarks GENERAL: This is a well-nourished, well-developed patient, in no apparent distress. CARDIOVASCULAR: Regular rate and irregular rhythm without murmurs, gallops, or rubs. RESPIRATORY: Clear to auscultation. Breath sounds equal bilaterally. No wheezes , rales, or rhonchi. GASTROINTESTINAL: Abdomen soft, mild epigastric tenderness, nondistended. Normal, active bowel sounds MUSCULOSKELETAL: Extremities without clubbing, cyanosis, or edema. NEURO: Alert & Oriented x4 to person, place, time, situation. Moves all ext x4 Procedures ERCP Medications and IVs Current Medications IV Flush (NS Flush) 2 ml UNSCH PRN IVF FLUSH AFTER USING IV ACCESS; Start at 12:30; Stop 12/05/16 at 15:02; Status DC Morphine Sulfate 4 mg 4 mg ONCE ONCE IV PUSH Last administered on 12/05/16 13: 00; Start 12/05/16 at 12:30; Stop 12/05/16 at 12:31; Status DC Sodium Chloride (NS 1000 ml Inj) 1,000 ml @ 999 mls/hr BOLUS ONCE IV Last administered on 12/05/16 13:00; Start 12/05/16 at 12:30; Stop 12/05/16 at 13:30; Status DC Ondansetron HCl 4 mg 4 mg ONCE ONCE IV PUSH Last administered on 12/05/16 13: 00; Start 12/05/16 at 12:30; Stop 12/05/16 at 12:31; Status DC Piperacillin Sod/ Tazobactam Sod (Zosyn 3.375 Gm Premix) 50 ml @ 100 mls/hr ONCE ONCE IV Last administered on 12/05/16 14:12; Start 12/05/16 at 14:15; Stop 12/05/16 at 14:44; Status DC Morphine Sulfate (Morphine Inj) 4 mg ONCE ONCE IV PUSH Last administered on 14:20; Start 12/05/16 at 14:30; Stop 12/05/16 at 14:31; Status DC Nicotine 1 patch 1 patch ONCE ONCE TD Last administered on 12/05/16 14:46; Start 12/05/16 at 14:30; Stop 12/05/16 at 14:31; Status DC Sodium Chloride (NS 1000 ml Inj) 1,000 ml @ 100 mls/hr Q10H IV Last administered on 12/07/16 16:23; Start 12/05/16 at 15:00 IV Flush (NS Flush) 2 ml UNSCH PRN IV FLUSH AFTER USING IV ACCESS; Start at 15:00 IV Flush 2 ml 2 ml BID IV Last administered on 12/07/16 22:03; Start 12/05/16 at 21:00 Piperacillin Sod/ Tazobactam Sod (Zosyn 4.5 Gm Premix) 100 ml @ 200 mls/hr Q6H IV Last administered on 12/08/16 00:53; Start 12/05/16 at 20:00 Ondansetron HCl (Zofran Inj) 4 mg Q6H PRN IV NAUSEA OR VOMITING; Start 12/05/16 at 15:00 Acetaminophen (Tylenol) 650 mg Q6H PRN PO FEVER >101F, headache; Start 12/05/16 at 15:00 Ketorolac Tromethamine (Toradol Inj) 15 mg Q6H PRN IVP PAIN SCALE 6 TO 10 Last administered on 12/07/16 21:05; Start 12/05/16 at 15:00 Hydromorphone HCl (Dilaudid Pf Inj) 1 mg Q4H PRN IV BREAKTHROUGH PAIN Last administered on 12/08/16 05:21; Start 12/05/16 at 15:00 Meperidine HCl (*DEMEROL INJ PERIprocedural ONLY) 25 mg STK-MED ONCE .ROUTE Last administered on 12/06/16 11:41; Start 12/06/16 at 11:41; Stop 12/06/16 at 11: 42; Status DC Fentanyl Citrate (fentaNYL INJ) 200 mcg STK-MED ONCE .ROUTE ; Start 12/06/16 at 11:46; Stop 12/06/16 at 11:47; Status DC Miscellaneous Information ALL NURSING DEPARTME... UNSCH PRN XX SEE LABEL COMMENTS; Start 12/06/16 at 12:00; Stop 12/07/16 at 11:59; Status DC Iohexol (Omnipaque 350 Inj) 100 ml STK-MED ONCE OTHER Last administered on 10:45; Start 12/06/16 at 10:45; Stop 12/06/16 at 12:12; Status DC Glucagon (Glucagon Inj) 1 mg STK-MED ONCE IV Last administered on 12/06/16 10: 45; Start 12/06/16 at 10:45; Stop 12/06/16 at 12:12; Status DC Propofol (Diprivan 200 Mg/20 ml Inj) 200 mg STK-MED ONCE IV ; Start 12/06/16 at 12:14; Stop 12/06/16 at 12:15; Status DC A/P Assessment and Plan A/P - acute cholecystitis/pancreatitis/ elevated LFT's s/p ERCP with sphincterotomy, stone extraction and stent placement. keep NPO and continue IV fluid and IV antibiotic. continue pain control. surgery following- for cholecystectomy today. Discharge Planning when cleared by surgery. Katty Atkins MD Dec 08, 2016 08:24
[2016-12-08] MEDS: SODIUM CHLORIDE 0.9% FLUSH 5 ML FLUSH IV SCH ×2 (09:00→21:01)
--- NOTE | 2016-12-08 10:52 | HHI.PR ---
Subjective Subjective Notes Still mild abdominal pain. No acute issues. Objective Vitals/I&O Vital Signs Date Time Temp Pulse Resp B/P Pulse Ox O2 Delivery O2 Flow Rate FiO2 12/08/16 08:00 97.8 66 16 107/69 97 12/06/16 12:00 Room Air Labs Laboratory Tests Test 12/08/16 05:32 Sodium Level 140 Potassium Level 3.7 Chloride Level 106 Carbon Dioxide Level 26.8 Anion Gap 7 Blood Urea Nitrogen 5 Creatinine 0.72 Estimat Glomerular Filtration 92 Rate Random Glucose 93 Calcium Level 7.8 Total Bilirubin 1.7 Aspartate Amino Transf 38 (AST/SGOT) Alanine Aminotransferase 172 (ALT/SGPT) Alkaline Phosphatase 171 Total Protein 6.0 Albumin 2.7 Lipase 1228 Date/Time Procedure Status Source Growth 12/05/16 11:50 Urine Culture - Final Complete Urine Clean Catch 50-100,000 CFU/ML MIXED GRAM POSITIVE... Radiology Last Impressions Gall Bladder Ultrasound 12/05/16 0000 Signed Impressions: Service Date/Time: Monday, December 05, 2016 13:24 - CONCLUSION: Abnormal gallbladder probably mild acute cholecystitis in spite of the lack of pain. Ambrocio Sifuentes MD FACR Cholangiopancreatography MRI 12/05/16 0000 Signed Impressions: Service Date/Time: Monday, December 05, 2016 19:33 - CONCLUSION: 2 gallstones measuring up to 1.7 cm in size with some minimal pericholecystic fluid suggesting acute cholecystitis. Common bile duct is dilated at one up to 1.2 cm in width with the question as to a blunted distal duct, retained stone on one of the reconstruction MRCP images Sherif Rosario MD Narrative Exam NAD Abd soft, mild epigastric and RUQ ttp, no rebound or guarding. A/P Assessment and Plan 36 yo F with choledocholithiasis/cholangitis s/p ERCP with stone removal and stent placement, mild cholecystitis. Lipase and LFTs improving significantly. Pain stable. Proceed to OR for cholecystectomy. She has no more questions and is ready to proceed. Beny Barnes MD Dec 08, 2016 10:52
[2016-12-08] MEDS ORDERED: BUPIVACAINE/EPINEPHRINE 0.25% 50 ML VIAL ONE (11:39)
[2016-12-08] MEDS ORDERED: DEXAMETHASONE SOD PHOS 4 MG/ML VIAL ONE (11:53)
[2016-12-08] MEDS ORDERED: MIDAZOLAM HCL 2 MG/2 ML VIAL ONE (11:53)
[2016-12-08] MEDS ORDERED: ONDANSETRON HCL 4 MG/2 ML VIAL IV PUSH ONE (12:00)
[2016-12-08] MEDS ORDERED: SUGAMMADEX SODIUM 200 MG/2 ML VIAL IV PUSH ONE ×2 (12:00)
[2016-12-08] MEDS ORDERED: PROPOFOL 200 MG/20 ML AMP IV ONE (12:00)
[2016-12-08] MEDS ORDERED: LACTATED RINGER'S 1000 ML INJ 1,000 ML IV ONE (12:00)
[2016-12-08] MEDS ORDERED: BUPIVACAINE/EPINEPHRINE 0.25% PF 30 ML VIAL INFIL ONE (12:24)
[2016-12-08] MEDS ORDERED: KETO10 PO (13:38)
--- NOTE | 2016-12-08 13:41 | PD.OP ---
cc: Beny Barnes MD Operative Report Date of Surgery: Dec 08, 2016 Preoperative Diagnosis: (1) Acute cholecystitis (2) Cholangitis due to bile duct calculus with obstruction Postoperative Diagnosis: (1) Acute cholecystitis (2) Cholangitis due to bile duct calculus with obstruction Procedure: Laparoscopic cholecystectomy Anesthesia: ANABELLA Surgeon: Beny Barnes Senior Living Advisor(s): Joyce SHER Operation and Findings: Complications: None apparent EBL: 20 cc Operative findings: The patient had acute inflammation of the gallbladder. She had gallstones present. The gallbladder was inadvertently entered but no stones spilled in the right upper quadrant was copiously irrigated and indicates. Procedure in detail: The patient was taken to the operating room and placed in the supine position. General endotracheal anesthesia was induced. The abdomen was prepped and draped in usual sterile fashion and a surgical timeout was performed to verify correct patient procedure and site. Appropriate perioperative antibiotics were administered. Local anesthetic was injected in the skin and subcutaneous tissue superior to the umbilicus and a 5 mm incision performed. The abdomen was entered using the Optiview 5 mm trocar with direct laparoscopic visualization. The abdomen was then insufflated to 15 mmHg with CO2 gas which the patient tolerated well. Next a 12 mm port was placed in the epigastrium and two 5 mm ports in the right upper quadrant and right lateral abdomen. The patient was placed in reverse Trendelenburg position and turned slightly to the left. Attention was turned to the right upper quadrant and the dome of the gallbladder was grasped and retracted cephalad. The infundibulum was retracted laterally to expose Calot's triangle. Blunt dissection and judicious use of electrocautery was used to expose the cystic duct and the cystic artery directly entering the gallbladder. Two clips were placed proximally on each of these structures and one distally and they were transected. The gallbladder was then removed from the liver bed using electrocautery. It was partially intrahepatic The gallbladder was inadvertently entered. No stones spilled. There was oozing from the liver bed and hemostasis was achieved using electrocautery and 3 g of Cecilia also displaced. The gallbladder was then removed from the abdomen using an Endo Catch bag. The clips were in place on the cystic duct and cystic artery stumps with no bleeding or bile leakage. At this point, the abdomen was allowed to desufflate and trochars were removed. The fascia at the 12 mm port site was closed with 0 Vicryl suture. Skin was closed with subcuticular 4-0 Monocryl as well as Dermabond. The patient tolerated the procedure well and was extubated and taken to PACU in stable condition. All sponge and instrument counts were correct. Beny Barnes MD Dec 08, 2016 13:40
[2016-12-08] MEDS ORDERED: *MEPERIDINE 25 MG INJ VIAL PERIprocedural Use ONLY ONE (13:44)
[2016-12-08] MEDS ORDERED: oxyCODONE/ACETAMINOPHEN 5 MG/325 MG TAB PO PRN ×2 (13:45)
[2016-12-08] MEDS ORDERED: *morphine SULFATE 8 MG/ML PERIprocedure ONLY ONE ×2 (13:55→14:28)
[2016-12-08] MEDS ORDERED: DO NOT ADM ANY ANTICOAGULANT DRUGS XX PRN (14:00)
[2016-12-08] MEDS ORDERED: *hydrOXYzine 25 MG VIAL PERIprocedural Use ONLY IM ONE (14:16)
[2016-12-08] MEDS ORDERED: *HYDROmorphone PF 1 MG VIAL PERIprocedural Use ONLY ONE (14:42)
[2016-12-08] MEDS ORDERED: fentaNYL CITRATE 250 MCG/5 ML AMP ONE (16:44)
--- NOTE | 2016-12-08 17:53 | HHI.GIFU ---
Subjective Remarks Resting in bed. Some mild RUQ tenderness and tenderness at incision lines. No BM. No n/v. Tolerating clears. Requesting laxative and nicotine patch. Nurse reports that she was found outside smoking last night. (Keyonna Qureshi) Objective Vitals I&O Vital Signs Date Time Temp Pulse Resp B/P Pulse Ox O2 Delivery O2 Flow Rate FiO2 12/08/16 16:00 98.9 84 20 123/81 97 12/08/16 14:45 75 14 129/83 97 Nasal Cannula 2 12/08/16 14:30 98.4 78 14 128/78 98 Nasal Cannula 2 12/08/16 14:30 78 12/08/16 14:15 78 14 132/89 97 Nasal Cannula 2 12/08/16 14:00 84 16 137/82 96 Nasal Cannula 2 12/08/16 13:45 83 16 151/88 100 Nasal Cannula 2 12/08/16 13:37 86 12/08/16 13:37 98.0 86 16 143/80 98 Nasal Cannula 2 12/08/16 08:00 97.8 66 16 107/69 97 12/08/16 04:00 97.5 66 17 118/80 95 12/08/16 00:00 97.5 71 16 93/49 97 12/07/16 20:00 98.5 90 18 107/61 100 I/O 12/07/16 12/07/16 12/07/16 12/08/16 12/08/16 12/08/16 07:00 15:00 23:00 07:00 15:00 23:00 Intake Total 0 ml 1200 ml 720 ml 1121 ml 2080 ml Output Total 720 ml 515 ml Balance 0 ml 1200 ml 0 ml 1121 ml 1565 ml Intake Oral 0 ml 1200 ml 720 ml 0 ml 480 ml IV Total 1121 ml Other 1600 ml Output Urine Total 720 ml 500 ml Estimated Blood Loss 15 ml # Voids 6 5 2 3 # Bowel Movements 0 0 2 0 Laboratory Laboratory Tests Test 12/08/16 05:32 Sodium Level 140 Potassium Level 3.7 Chloride Level 106 Carbon Dioxide Level 26.8 Anion Gap 7 Blood Urea Nitrogen 5 Creatinine 0.72 Estimat Glomerular Filtration 92 Rate Random Glucose 93 Calcium Level 7.8 Total Bilirubin 1.7 Aspartate Amino Transf 38 (AST/SGOT) Alanine Aminotransferase 172 (ALT/SGPT) Alkaline Phosphatase 171 Total Protein 6.0 Albumin 2.7 Lipase 1228 Date/Time Procedure Status Source Growth 12/05/16 11:50 Urine Culture - Final Complete Urine Clean Catch 50-100,000 CFU/ML MIXED GRAM POSITIVE... Imaging Last Impressions GI Procedure 12/06/16 0000 Signed Impressions: Service Date/Time: Tuesday, December 06, 2016 10:47 - CONCLUSION: Biliary stent in good position. Ambrocio Sifuentes MD FACR Gall Bladder Ultrasound 12/05/16 0000 Signed Impressions: Service Date/Time: Monday, December 05, 2016 13:24 - CONCLUSION: Abnormal gallbladder probably mild acute cholecystitis in spite of the lack of pain. Ambrocio Sifuentes MD FACR Cholangiopancreatography MRI 12/05/16 0000 Signed Impressions: Service Date/Time: Monday, December 05, 2016 19:33 - CONCLUSION: 2 gallstones measuring up to 1.7 cm in size with some minimal pericholecystic fluid suggesting acute cholecystitis. Common bile duct is dilated at one up to 1.2 cm in width with the question as to a blunted distal duct, retained stone on one of the reconstruction MRCP images Sherif Rosario MD Physical Exam HEENT: Normocephalic; atraumatic; no jaundice. CHEST: CTA CARDIAC: RRR ABDOMEN: Soft, nondistended, mild ruq tenderness; no hepatosplenomegaly; bowel sounds are present in all four quadrants. Incision lines well approximated. No redness. scant drainage at umbilical incision. EXTREMITIES: No clubbing, cyanosis, or edema. SKIN: Normal; no rash; no jaundice. POWER OPERATOR: No focal deficits; alert and oriented times three. (Keyonna Qureshi [facility]) Assessment and Plan Plan ASSESSMENT: - Cholelithiasis, Choledocholithiasis. Pt came in for n/v/abdominal pain. Gall Bladder Ultrasound (12/05/16)----> Abnormal gallbladder probably mild acute cholecystitis in spite of the lack of pain. MRCP (12/05/16)------> 2 gallstones measuring up to 1.7 cm in size with some minimal pericholecystic fluid suggesting acute cholecystitis. Common bile duct is dilated at one up to 1.2 cm in width with the question as to a blunted distal duct, retained stone on one of the reconstruction MRCP images. S/P ERCP with sphincterotomy, stone removal, stent placement (12/06/16)----> egd limited but normal, pancreatic duct normal, CBD dilated with filling defects consistent with stone, s/p removal and stent placement. LFTs improving, T. Bili 1.7, AST 38, ALT 172, Alk Phosph 171. Zosyn. S/P Lap. Tamara. POD #0. - Pancreatitis. Lipase 15,290----->1228. Clears. IVF. PLAN: - Diet per GS - Cont. IVF - Cont. PPI - Cont. Zosyn - Add Miralax 17gram po daily - Add Dulcolax suppository daily prn - Encourage ambulation - Monitor labs - Supportive care - If labs continue to improve, okay to d/c home in am from GI standpoint - Pt seen and examined by Dr. Daniels and myself and this note is written on his behalf (Keyonna Qureshi) Physician Comments Patient seen and examined Agree with above Continue with current supportive care Monitor labs We will sign off (Jack Daniels MD) Keyonna Qureshi Dec 08, 2016 17:52 Jack Daniels MD Dec 08, 2016 22:07
[2016-12-08] MEDS ORDERED: BISACODYL 10 MG SUPP RECTAL PRN (18:00)
[2016-12-08] MEDS: NICOTINE 21 MG/24 HR PATCH TD SCH (21:08)
[2016-12-08] MEDS: POLYETHYLENE GLYCOL 17 GM PKG PO SCH (21:09)
[2016-12-08] MEDS: KETOROLAC TROMETHAMINE 10 MG TAB PO PRN (23:15)
[2016-12-09 00:40] VITALS: BP 113/78; PULSE 83; RESP 16; TEMP 99.3; O2SAT 97
[2016-12-09] MEDS: HYDROmorphone HCL PF 1 MG/ML VIAL IV PRN ×3 (00:42→08:03)
[2016-12-09 00:45] VITALS: BP 113/63; PULSE 89; RESP 16; TEMP 97.4; O2SAT 94
[2016-12-09] MEDS: PIPERACIL-TAZO 4.5 GM PREMIX 100 ML IV SCH ×3 (02:00→14:04)
[2016-12-09 03:35] VITALS: BP 119/73; PULSE 80; RESP 16; TEMP 98; O2SAT 98
[2016-12-09 08:00] VITALS: BP 110/79; PULSE 73; RESP 16; TEMP 98.3; O2SAT 95
[2016-12-09] MEDS: POLYETHYLENE GLYCOL 17 GM PKG PO SCH (08:02)
[2016-12-09] MEDS: NICOTINE 21 MG/24 HR PATCH TD SCH (08:04)
[2016-12-09] MEDS: SODIUM CHLORIDE 0.9% FLUSH 5 ML FLUSH IV SCH (09:00)
[2016-12-09] MEDS ORDERED: REMOVE OLD NICODERM (NICOTINE) PATCH TD SCH (09:00)
--- NOTE | 2016-12-09 09:16 | HHI.DCPOC ---
Discharge Care Plan Diagnosis: (1) Acute cholecystitis Additional Problems abdominal pain. Goals to Promote Your Health * To prevent worsening of your condition and complications * To maintain your health at the optimal level Directions to Meet Your Goals Take your medications as prescribed Follow your dietary instruction Follow activity as directed Keep your appointments as scheduled Take your immunizations and boosters as scheduled If your symptoms worsen call your PCP, if no PCP go to Urgent Care Center or Emergency Room Smoking is Dangerous to Your Health. Avoid second hand smoke Call the 24-hour hour crisis hotline for domestic abuse at Katty Atkins MD Dec 09, 2016 09:16
--- NOTE | 2016-12-09 09:16 | HHI.PR ---
Subjective Remarks resting comfortably with no distress. mild abdominal pain. tolerated the diet. Objective Vitals Vital Signs Date Time Temp Pulse Resp B/P Pulse Ox O2 Delivery O2 Flow Rate FiO2 12/09/16 08:00 98.3 73 16 110/79 95 12/09/16 04:51 20 12/09/16 03:35 98.0 80 16 119/73 98 12/09/16 00:40 99.3 83 16 113/78 97 12/09/16 00:15 20 12/08/16 20:55 96.9 77 16 121/75 100 12/08/16 20:00 84 12/08/16 16:00 98.9 84 20 123/81 97 12/08/16 14:45 75 14 129/83 97 Nasal Cannula 2 12/08/16 14:30 98.4 78 14 128/78 98 Nasal Cannula 2 12/08/16 14:30 78 12/08/16 14:15 78 14 132/89 97 Nasal Cannula 2 12/08/16 14:00 84 16 137/82 96 Nasal Cannula 2 12/08/16 13:45 83 16 151/88 100 Nasal Cannula 2 12/08/16 13:37 86 12/08/16 13:37 98.0 86 16 143/80 98 Nasal Cannula 2 I/O 12/08/16 12/08/16 12/08/16 12/09/16 12/09/16 12/09/16 07:00 15:00 23:00 07:00 15:00 23:00 Intake Total 1121 ml 2080 ml 630 ml 1431 ml 720 ml Output Total 515 ml Balance 1121 ml 1565 ml 630 ml 1431 ml 720 ml Intake Oral 0 ml 480 ml 630 ml 720 ml IV Total 1121 ml 1431 ml Other 1600 ml Output Urine Total 500 ml Estimated Blood Loss 15 ml # Voids 2 3 3 5 # Bowel Movements 0 0 0 Result Diagram: 12/07/16 0631 12/08/16 0532 Imaging Last Impressions GI Procedure 12/06/16 0000 Signed Impressions: Service Date/Time: Tuesday, December 06, 2016 10:47 - CONCLUSION: Biliary stent in good position. Ambrocio Sifuentes MD FACR Gall Bladder Ultrasound 12/05/16 0000 Signed Impressions: Service Date/Time: Monday, December 05, 2016 13:24 - CONCLUSION: Abnormal gallbladder probably mild acute cholecystitis in spite of the lack of pain. Ambrocio Sifuentes MD FACR Cholangiopancreatography MRI 12/05/16 0000 Signed Impressions: Service Date/Time: Monday, December 05, 2016 19:33 - CONCLUSION: 2 gallstones measuring up to 1.7 cm in size with some minimal pericholecystic fluid suggesting acute cholecystitis. Common bile duct is dilated at one up to 1.2 cm in width with the question as to a blunted distal duct, retained stone on one of the reconstruction MRCP images Sherif Rosario MD Objective Remarks GENERAL: This is a well-nourished, well-developed patient, in no apparent distress. CARDIOVASCULAR: Regular rate and irregular rhythm without murmurs, gallops, or rubs. RESPIRATORY: Clear to auscultation. Breath sounds equal bilaterally. No wheezes , rales, or rhonchi. GASTROINTESTINAL: Abdomen soft, mild epigastric tenderness, nondistended. Normal, active bowel sounds MUSCULOSKELETAL: Extremities without clubbing, cyanosis, or edema. NEURO: Alert & Oriented x4 to person, place, time, situation. Moves all ext x4 Procedures ERCP cholecystectomy Medications and IVs Current Medications IV Flush (NS Flush) 2 ml UNSCH PRN IVF FLUSH AFTER USING IV ACCESS; Start at 12:30; Stop 12/05/16 at 15:02; Status DC Morphine Sulfate 4 mg 4 mg ONCE ONCE IV PUSH Last administered on 12/05/16 13: 00; Start 12/05/16 at 12:30; Stop 12/05/16 at 12:31; Status DC Sodium Chloride (NS 1000 ml Inj) 1,000 ml @ 999 mls/hr BOLUS ONCE IV Last administered on 12/05/16 13:00; Start 12/05/16 at 12:30; Stop 12/05/16 at 13:30; Status DC Ondansetron HCl 4 mg 4 mg ONCE ONCE IV PUSH Last administered on 12/05/16 13: 00; Start 12/05/16 at 12:30; Stop 12/05/16 at 12:31; Status DC Piperacillin Sod/ Tazobactam Sod (Zosyn 3.375 Gm Premix) 50 ml @ 100 mls/hr ONCE ONCE IV Last administered on 1/7/17at 14:12; Start 12/05/16 at 14:15; Stop 12/05/16 at 14:44; Status DC Morphine Sulfate (Morphine Inj) 4 mg ONCE ONCE IV PUSH Last administered on 14:20; Start 12/05/16 at 14:30; Stop 12/05/16 at 14:31; Status DC Nicotine 1 patch 1 patch ONCE ONCE TD Last administered on 12/05/16 14:46; Start 12/05/16 at 14:30; Stop 12/05/16 at 14:31; Status DC Sodium Chloride (NS 1000 ml Inj) 1,000 ml @ 100 mls/hr Q10H IV Last administered on 12/08/16 21:03; Start 12/05/16 at 15:00 IV Flush (NS Flush) 2 ml UNSCH PRN IV FLUSH AFTER USING IV ACCESS; Start at 15:00 IV Flush 2 ml 2 ml BID IV Last administered on 12/08/16 21:01; Start 12/05/16 at 21:00 Piperacillin Sod/ Tazobactam Sod (Zosyn 4.5 Gm Premix) 100 ml @ 200 mls/hr Q6H IV Last administered on 12/09/16 02:00; Start 12/05/16 at 20:00 Ondansetron HCl (Zofran Inj) 4 mg Q6H PRN IV NAUSEA OR VOMITING; Start 12/05/16 at 15:00 Acetaminophen (Tylenol) 650 mg Q6H PRN PO FEVER >101F, headache; Start 12/05/16 at 15:00 Ketorolac Tromethamine (Toradol Inj) 15 mg Q6H PRN IVP PAIN SCALE 6 TO 10 Last administered on 12/07/16 21:05; Start 12/05/16 at 15:00; Stop 12/08/16 at 13:36; Status DC Hydromorphone HCl (Dilaudid Pf Inj) 1 mg Q4H PRN IV BREAKTHROUGH PAIN Last administered on 12/09/16 08:03; Start 12/05/16 at 15:00 Meperidine HCl (*DEMEROL INJ PERIprocedural ONLY) 25 mg STK-MED ONCE .ROUTE Last administered on 12/06/16 11:41; Start 12/06/16 at 11:41; Stop 12/06/16 at 11: 42; Status DC Fentanyl Citrate (fentaNYL INJ) 200 mcg STK-MED ONCE .ROUTE ; Start 12/06/16 at 11:46; Stop 12/06/16 at 11:47; Status DC Miscellaneous Information ALL NURSING DEPARTME... UNSCH PRN XX SEE LABEL COMMENTS; Start 12/06/16 at 12:00; Stop 12/07/16 at 11:59; Status DC Iohexol (Omnipaque 350 Inj) 100 ml STK-MED ONCE OTHER Last administered on 10:45; Start 12/06/16 at 10:45; Stop 12/06/16 at 12:12; Status DC Glucagon (Glucagon Inj) 1 mg STK-MED ONCE IV Last administered on 12/06/16 10: 45; Start 12/06/16 at 10:45; Stop 12/06/16 at 12:12; Status DC Propofol (Diprivan 200 Mg/20 ml Inj) 200 mg STK-MED ONCE IV ; Start 12/06/16 at 12:14; Stop 12/06/16 at 12:15; Status DC Bupivacaine HCl/ Epinephrine Bitart (Marcaine-Epi Pf 0.25% Inj) 30 ml STK-MED ONCE INFIL Last administered on 12/08/16 12:24; Start 12/08/16 at 12:24; Stop 12/08/16 at 12:34; Status DC Oxycodone/ Acetaminophen (Percocet 5-325 Mg) 1 tab Q4H PRN PO PAIN SCALE 1 TO 5; Start 12/08/16 at 13:45; Stop 12/08/16 at 13:45; Status DC Oxycodone/ Acetaminophen (Percocet 5-325 Mg) 2 tab Q4H PRN PO PAIN SCALE 6 TO 10; Start 12/08/16 at 13:45; Stop 12/08/16 at 13:45; Status DC Ketorolac Tromethamine (Toradol) 10 mg Q6H PRN PO PAIN3-10 Last administered on 12/08/16 23:15; Start 12/08/16 at 13:45 Miscellaneous Information ALL NURSING DEPARTME... UNSCH PRN XX SEE LABEL COMMENTS; Start 12/08/16 at 14:00; Stop 12/09/16 at 13:59 Bupivacaine HCl/ Epinephrine Bitart (Sensorcaine-Epinephrine 0.25% Inj) 50 ml STK-MED ONCE .ROUTE ; Start 12/08/16 at 11:39; Stop 12/08/16 at 15:48; Status DC Midazolam HCl (Versed Inj) 2 mg STK-MED ONCE .ROUTE ; Start 12/08/16 at 11:53; Stop 12/08/16 at 15:49; Status DC Dexamethasone Sodium Phosphate (Decadron Inj) 4 mg STK-MED ONCE .ROUTE ; Start 12/08/16 at 11:53; Stop 12/08/16 at 15:49; Status DC Fentanyl Citrate (fentaNYL INJ) 100 mcg STK-MED ONCE .ROUTE ; Start 12/08/16 at 13:42; Stop 12/08/16 at 16:01; Status DC Meperidine HCl (*DEMEROL INJ PERIprocedural ONLY) 25 mg STK-MED ONCE .ROUTE ; Start 12/08/16 at 13:44; Stop 12/08/16 at 16:01; Status DC Morphine Sulfate (*morphine INJ PERIprocedure ONLY) 8 mg STK-MED ONCE .ROUTE ; Start 12/08/16 at 13:55; Stop 12/08/16 at 16:02; Status DC Hydroxyzine HCl (*VISTARIL INJ PERIprocedural ONLY) 25 mg STK-MED ONCE IM ; Start 12/08/16 at 14:16; Stop 12/08/16 at 16:04; Status DC Morphine Sulfate (*morphine INJ PERIprocedure ONLY) 8 mg STK-MED ONCE .ROUTE ; Start 12/08/16 at 14:28; Stop 12/08/16 at 16:05; Status DC Hydromorphone HCl (*DILAUDID PF INJ PERIprocedural ONLY) 1 mg STK-MED ONCE .ROUTE ; Start 12/08/16 at 14:42; Stop 12/08/16 at 16:06; Status DC Nicotine (Habitrol 21 Mg Patch.24 Hr) 1 patch DAILY TD Last administered on t 08:04; Start 12/08/16 at 18:00 Polyethylene Glycol (Miralax) 17 gm DAILY PO Last administered on 12/09/16t 08: 02; Start 12/08/16 at 18:00 Bisacodyl (Dulcolax Supp) 10 mg DAILY PRN RECTAL constipation; Start 12/08/16 at 18:00 Fentanyl Citrate (fentaNYL INJ) 100 mcg STK-MED ONCE .ROUTE ; Start 12/08/16 at 16:43; Stop 12/08/16 at 18:06; Status DC Fentanyl Citrate (fentaNYL INJ) 250 mcg STK-MED ONCE .ROUTE ; Start 12/08/16 at 16:44; Stop 12/08/16 at 18:06; Status DC Miscellaneous Information 1 DAILY TD Last administered on 12/09/16t 08:04; Start 12/09/16 at 09:00 A/P Assessment and Plan A/P - acute cholecystitis/pancreatitis/ elevated LFT's s/p ERCP with sphincterotomy, stone extraction and stent placement. s/p cholecystectomy continue pain control. surgery following- Discharge Planning when cleared by surgery. see med list. f/u by pcp,GI and surgery upon discharge. d/w the patient. Katty Atkins MD Dec 09, 2016 09:15
--- NOTE | 2016-12-09 09:17 | HHI.DS ---
Discharge Summary Admission Date Dec 05, 2016 at 14:25 Discharge Date: Dec 09, 2016 Admitting Diagnosis cholangitis (1) Acute cholecystitis ICD Code: K81.0 Diagnosis: Principal Procedures ERCP cholecystectomy Brief History - From Admission patient is a 36 y/o female with no significant past medical history who presented with abdominal pain. she says that the pain started 3-4 days ago. pain was more or less epigastric with some radiation to the RUQ. pain was moderate in intensity. it was associated with nausea and vomiting. she says that the pain initially subsided but when she tried to eat , the pain came back and got worse. she had a low grade fever and chills at home. she says that she had episodes of this type of abdominal pain in the past but it didn't stay that long. CBC/BMP: 12/07/16 0631 12/08/16 0532 Significant Findings Laboratory Tests Test 12/07/16 12/08/16 06:31 05:32 Total Bilirubin 5.5 MG/DL 1.7 MG/DL (0.2-1.0) (0.2-1.0) Direct Bilirubin 3.9 MG/DL (0.0-0.2) Indirect Bilirubin 1.6 MG/DL (0.0-0.8) Aspartate Amino Transf 113 U/L (15-37) 38 U/L (15-37) (AST/SGOT) Alanine Aminotransferase 287 U/L (10-53) 172 U/L (10-53) (ALT/SGPT) Alkaline Phosphatase 209 U/L 171 U/L (45-117) (45-117) Albumin 3.2 GM/DL 2.7 GM/DL (3.4-5.0) (3.4-5.0) Lipase 24017 U/L 1228 U/L (73-393) (73-393) Blood Urea Nitrogen 5 MG/DL (7-18) Calcium Level 7.8 MG/DL (8.5-10.1) Total Protein 6.0 GM/DL (6.4-8.2) Imaging Last Impressions GI Procedure 12/06/16 0000 Signed Impressions: Service Date/Time: Tuesday, December 06, 2016 10:47 - CONCLUSION: Biliary stent in good position. Ambrocio Sifuentes MD FACR Gall Bladder Ultrasound 12/05/16 0000 Signed Impressions: Service Date/Time: Monday, December 05, 2016 13:24 - CONCLUSION: Abnormal gallbladder probably mild acute cholecystitis in spite of the lack of pain. Ambrocio Sifuentes MD FACR Cholangiopancreatography MRI 12/05/16 0000 Signed Impressions: Service Date/Time: Monday, December 05, 2016 19:33 - CONCLUSION: 2 gallstones measuring up to 1.7 cm in size with some minimal pericholecystic fluid suggesting acute cholecystitis. Common bile duct is dilated at one up to 1.2 cm in width with the question as to a blunted distal duct, retained stone on one of the reconstruction MRCP images Sherif Rosario MD PE at Discharge GENERAL: This is a well-nourished, well-developed patient, in no apparent distress. CARDIOVASCULAR: Regular rate and irregular rhythm without murmurs, gallops, or rubs. RESPIRATORY: Clear to auscultation. Breath sounds equal bilaterally. No wheezes , rales, or rhonchi. GASTROINTESTINAL: Abdomen soft, mild epigastric tenderness, nondistended. Normal, active bowel sounds MUSCULOSKELETAL: Extremities without clubbing, cyanosis, or edema. NEURO: Alert & Oriented x4 to person, place, time, situation. Moves all ext x4 Hospital Course - acute cholecystitis/pancreatitis/ elevated LFT's s/p ERCP with sphincterotomy, stone extraction and stent placement. s/p cholecystectomy continue pain control. surgery following- Pt Condition on Discharge: Good Discharge Disposition: Discharge Home Discharge Time: <= 30 minutes Discharge Instructions DIET: Follow Instructions for: Low Fat Diet Activities you can perform: Regular-No Restrictions Follow up Referrals: Gastroenterology PCP Follow-up Surgical - 2 Weeks with Beny Barnes MD New Medications: Ketorolac (Ketorolac) 10 Mg Tab 10 MG PO Q6HR PRN PAIN #25 Ref 0 TAB Katty Atkins MD Dec 09, 2016 09:17
[2016-12-09 10:19] LABS: INDIRECT BILIRUBIN 0.6 MG/DL (0.0-0.8); TOTAL BILIRUBIN ADULT 1.1 MG/DL (0.2-1.0)
[2016-12-09 12:00] VITALS: BP 104/65; PULSE 80; RESP 20; TEMP 98.1; O2SAT 98
[2016-12-09] MEDS: KETOROLAC TROMETHAMINE 10 MG TAB PO PRN ×2 (12:03→17:47)
--- NOTE | 2016-12-09 16:40 | HHI.PR ---
Subjective Subjective Notes In some pain but controlled. Rosalva fulls. Objective Vitals/I&O Vital Signs Date Time Temp Pulse Resp B/P Pulse Ox O2 Delivery O2 Flow Rate FiO2 12/09/16 12:00 98.1 80 20 104/65 98 12/08/16 14:45 Nasal Cannula 2 Labs Laboratory Tests Test 12/09/16 08:55 Total Bilirubin 1.1 Direct Bilirubin 0.5 Indirect Bilirubin 0.6 Aspartate Amino Transf 42 (AST/SGOT) Alanine Aminotransferase 159 (ALT/SGPT) Alkaline Phosphatase 152 Total Protein 6.1 Albumin 3.0 Lipase 612 Date/Time Procedure Status Source Growth 12/05/16 11:50 Urine Culture - Final Complete Urine Clean Catch 50-100,000 CFU/ML MIXED GRAM POSITIVE... Radiology Last Impressions Gall Bladder Ultrasound 12/05/16 0000 Signed Impressions: Service Date/Time: Monday, December 05, 2016 13:24 - CONCLUSION: Abnormal gallbladder probably mild acute cholecystitis in spite of the lack of pain. Ambrocio Sifuentes MD FACR Cholangiopancreatography MRI 12/05/16 0000 Signed Impressions: Service Date/Time: Monday, December 05, 2016 19:33 - CONCLUSION: 2 gallstones measuring up to 1.7 cm in size with some minimal pericholecystic fluid suggesting acute cholecystitis. Common bile duct is dilated at one up to 1.2 cm in width with the question as to a blunted distal duct, retained stone on one of the reconstruction MRCP images Sherif Rosario MD Narrative Exam NAD Abd soft, appropriate post op ttp, inc c/d/i. A/P Assessment and Plan 36 yo F with choledocholithiasis/cholangitis s/p ERCP with stone removal and stent placement, mild cholecystitis. POD 1 s/p lap torrey. Doing well. I put a rx for toradol on the chart. Ok for discharge. F/u in 2 weeks. CameronBeny MD Dec 09, 2016 16:40
== END 2016-12-09 17:55 | disposition home or self-care (01) | DRG 417 ==
LOC: PHED 11:18 → PHEDA 14:25 → N06B 17:11
PROVIDERS: ADMIT Internal Medicine; ATTEND Internal Medicine
PROC: 0FC98ZZ Extirpation of Matter from Common Bile Duct, Via Natural or Artificial Opening Endoscopic (ICD-10-PCS; 2016-12-06)
PROC: 0F798DZ Dilation of Common Bile Duct with Intraluminal Device, Via Natural or Artificial Opening Endoscopic (ICD-10-PCS; 2016-12-06)
PROC: 0FT44ZZ Resection of Gallbladder, Percutaneous Endoscopic Approach (ICD-10-PCS; principal; 2016-12-08 11:57)
DX: K80.63 Calculus of gallbladder and bile duct with acute cholecystitis with obstruction (principal); K85.10 Biliary acute pancreatitis without necrosis or infection; F41.9 Anxiety disorder, unspecified; F17.210 Nicotine dependence, cigarettes, uncomplicated
CPT/HCPCS: 74181; 74330; 76377; 76705; 80053; 80076; 81001; 83690; 84703; 85025; 87086; 88304; 96361; 96374; 96375; 96376; C1769; C2625; J1100; J1170; J1610; J1885; J2175; J2250; J2270; J2405; J2543; J3010; J3410; J7030; J7120; Q9967

== ENCOUNTER 2017-01-12 13:06 | Emergency (ER) | payer SELFPAY ==
[~2017-01-12] VITALS: Ht 160 cm; Wt 80.0 kg
[~2017-01-12 13:06] MED LIST: KETO10 PO
[2017-01-12 13:09] VITALS: BP 126/72; PULSE 106; RESP 12; TEMP 98.4; O2SAT 94
--- NOTE | 2017-01-12 16:43 | PD ---
HPI Chief Complaint: Medical Clearance Time Seen by Provider: 16:41 Travel History International Travel<30 days: No Contact w/Intl Traveler<30days: No Traveled to known affect area: No History of Present Illness HPI 36-year-old female presents to the emergency department for multiple complaints. The patient states she had her gallbladder out approximately one month ago. She states that ever since then she feels like she has been falling apart. Patient reports cough and congestion with low-grade fevers, Max 99.4. She states this has been ongoing since her gallbladder was removed. Patient also reports feeling her abdomen is distended. She states she'll get intermittent sharp pains in her abdomen, but denies any current abdominal pain. She also states that she has had a rash to her bilateral upper extremities since having her gallbladder out. Patient states she feels weak. She also reports spontaneous bruising and pain in her right ankle and denies any traumatic injury. The patient does admit to snorting cocaine one week ago. She denies any IV drug use at this time stating last time she is IV drugs was 8 months ago. Patient is very fidgety on exam and cannot stay still. Patient also believes she has thrush and a vaginal yeast infection as well. She states she is having vaginal discharge. She denies any risk of STDs at this time. No chest pain. PFSH Past Medical History Anxiety: Yes Depression: Yes Cancer: No Cardiovascular Problems: No Diminished Hearing: No Endocrine: No Genitourinary: No Immune Disorder: No Musculoskeletal: Yes (CHRONICK NECK,BACK PAIN) Neurologic: No Psychiatric: Yes Reproductive: No Respiratory: No Immunizations Current: Yes ?: Not LMP: 01/09/17 Tubal Ligation: Yes Past Surgical History Section: Yes (X 1) Social History Alcohol Use: Yes (occ) Tobacco Use: Yes (1PPD) Substance Use: Yes (cocaine) Allergies-Medications (Allergen,Severity, Reaction): Coded Allergies: No Known Allergies (Verified , 01/12/17) Reported Meds & Prescriptions Reported Meds & Active Scripts Active Keflex (Cephalexin) 250 Mg Cap 250 Mg PO Q6H 10 Days Bactrim DS (Sulfamethoxazole-Trimethoprim) 800-160 Mg Tab 1 Tab PO BID Monistat 1-Day Vaginal (Tioconazole Vaginal) 6.5% Oint 1 Appl VAGINAL HS Review of Systems Except as stated in HPI: all other systems reviewed are Neg Physical Exam Narrative GENERAL: Well-developed well-nourished female patient, ambulatory. Afebrile. Patient patient is constantly moving during exam and will not sit still. SKIN: Warm and dry. Ecchymosis noted to right ankle. Patient has multiple scabs to the bilateral upper extremities. HEAD: Normocephalic. Atraumatic. ENT: Mucosa pink and moist. No erythema or exudates. No uvular edema. No uvular , palatal, or tonsillar deviation. Airway patent. Nasal turbinates appear normal without nasal blood, purulent drainage or septal hematoma. Patient does have white coating to the tongue. EYES: No scleral icterus. No injection or drainage. NECK: Supple, trachea midline. No JVD or lymphadenopathy. CARDIOVASCULAR: Regular rate and rhythm without murmurs, gallops, or rubs. RESPIRATORY: Breath sounds equal bilaterally. No accessory muscle use. Lungs sounds are clear to auscultation. GASTROINTESTINAL: Abdomen soft, non-tender, nondistended. No abdominal pain to palpation. MUSCULOSKELETAL: No cyanosis, or edema. BACK: Nontender without obvious deformity. No CVA tenderness. Data Data Last Documented VS Vital Signs Date Time Temp Pulse Resp B/P Pulse Ox O2 Delivery O2 Flow Rate FiO2 01/12/17 21:58 90 16 128/90 97 01/12/17 20:29 Room Air 01/12/17 13:09 98.4 Orders Complete Blood Count With Diff (01/12/17 16:40) Comprehensive Metabolic Panel (01/12/17 16:40) Prothrombin Time / Inr (Pt) (01/12/17 16:40) Act Partial Throm Time (Ptt) (01/12/17 16:40) Ankle, Complete ([id number]) (01/12/17 ) Chest, Single Ap (01/12/17 ) Urinalysis - C+S If Indicated (01/12/17 16:40) Ed Urine Pregnancytest Poc (01/12/17 16:40) Drug Screen, Random Urine (01/12/17 16:43) Urine Culture (01/12/17 18:55) Blood Culture (01/12/17 20:48) Sulfamet-Trimeth Ds 800-160 Mg (Bactrim (01/12/17 21:00) Cephalexin (Keflex) (01/12/17 21:00) Ibuprofen (Motrin) (01/12/17 21:00) Labs Laboratory Tests Test 01/12/17 01/12/17 17:05 18:55 White Blood Count 8.7 TH/MM3 Red Blood Count 4.19 MIL/MM3 Hemoglobin 12.9 GM/DL Hematocrit 35.8 % Mean Corpuscular Volume 85.4 FL Mean Corpuscular Hemoglobin 30.7 PG Mean Corpuscular Hemoglobin 36.0 % Concent Red Cell Distribution Width 12.4 % Platelet Count 219 TH/MM3 Mean Platelet Volume 6.8 FL Neutrophils (%) (Auto) 64.9 % Lymphocytes (%) (Auto) 26.5 % Monocytes (%) (Auto) 5.8 % Eosinophils (%) (Auto) 2.5 % Basophils (%) (Auto) 0.3 % Neutrophils # (Auto) 5.7 TH/MM3 Lymphocytes # (Auto) 2.3 TH/MM3 Monocytes # (Auto) 0.5 TH/MM3 Eosinophils # (Auto) 0.2 TH/MM3 Basophils # (Auto) 0.0 TH/MM3 CBC Comment AUTO DIFF Differential Comment AUTO DIFF CONFIRMED Platelet Estimate NORMAL Platelet Morphology Comment NORMAL Red Cell Morphology Comment NORMAL Prothrombin Time 11.4 SEC Prothromb Time International 1.0 RATIO Ratio Activated Partial 27.6 SEC Thromboplast Time Sodium Level 137 MEQ/L Potassium Level 4.1 MEQ/L Chloride Level 103 MEQ/L Carbon Dioxide Level 25.4 MEQ/L Anion Gap 9 MEQ/L Blood Urea Nitrogen 11 MG/DL Creatinine 0.98 MG/DL Estimat Glomerular Filtration 64 ML/MIN Rate Random Glucose 79 MG/DL Calcium Level 9.0 MG/DL Total Bilirubin 1.1 MG/DL Aspartate Amino Transf 16 U/L (AST/SGOT) Alanine Aminotransferase 22 U/L (ALT/SGPT) Alkaline Phosphatase 60 U/L Total Protein 7.5 GM/DL Albumin 3.9 GM/DL Urine Color YELLOW Urine Turbidity HAZY Urine pH 5.5 Urine Specific Novelty 1.014 Urine Protein NEG mg/dL Urine Glucose (UA) NEG mg/dL Urine Ketones 10 mg/dL Urine Occult Blood TRACE Urine Nitrite NEG Urine Bilirubin NEG Urine Urobilinogen LESS THAN 2.0 MG/DL Urine Leukocyte Esterase TRACE Urine RBC 2 /hpf Urine WBC 2 /hpf Urine Squamous Epithelial 42 /hpf Cells Urine Bacteria MANY /hpf Microscopic Urinalysis Comment CULTURE INDICATED Urine Opiates Screen NEG Urine Barbiturates Screen NEG Urine Amphetamines Screen NEG Urine Benzodiazepines Screen NEG Urine Cocaine Screen POS Urine Cannabinoids Screen NEG MDM Medical Decision Making Medical Screen Exam Complete: Yes Emergency Medical Condition: Yes Medical Record Reviewed: Yes Differential Diagnosis URI versus pneumonia versus UTI versus ankle fracture versus ankle contusion versus medical clearance versus substance abuse Narrative Course 36-year-old female presents to the emergency department for multiple complaints. CBC, CMP, UA, urine drug screen, urine test, chest x-ray , x-ray of the right ankle are ordered and pending. Workup is initiated in triage. Once a medical bed becomes available, patient will be transferred and care assumed by that provider. Scripts Cephalexin (Keflex)250 Mg [id number] Mg PO Q6H 10 Days Ref 0 Prov:Faith Meehan MD 01/12/17 Sulfamethoxazole-Trimethoprim (Bactrim DS)800-160 Mg Tab1 Tab PO BID #14 TAB Ref 0 Prov:Faith Meehan MD 01/12/17 Tioconazole Vaginal (Monistat 1-Day Vaginal)6.5% Oint1 Appl VAGINAL HS #1 APPL Ref 0 Prov:Faith Meehan MD 01/12/17 Kay Stephens Jan 12, 2017 16:43
--- NOTE | 2017-01-12 17:07 | RADRPT ---
EXAM DATE/TIME: 01/12/2017 17:03 [facility] COMPARISON: No previous studies available for comparison. INDICATIONS : Cough and fever for the past two weeks. MEDICAL HISTORY : None. SURGICAL HISTORY : None. ENCOUNTER: Initial ACUITY: 2 weeks PAIN SCORE: 0/10 LOCATION: Bilateral chest FINDINGS: A single view of the chest demonstrates the lungs to be symmetrically aerated without evidence of mas s, infiltrate or effusion. The cardiomediastinal contours are unremarkable. Osseous structures are intact. A biliary stent catheter is noted projected over the right upper abdomen. The patient is stat us post cholecystectomy. CONCLUSION: No acute disease. There is no evidence of pneumonia. Martin Hilton MD on January 12, 2017 at 17:05 Board Certified Radiologist. This report was verified electronically.
--- NOTE | 2017-01-12 17:08 | RADRPT ---
EXAM DATE/TIME: 01/12/2017 17:04 [facility] COMPARISON: No previous studies available for comparison. INDICATIONS : Right ankle rash for the past two weeks. Pain that started today. MEDICAL HISTORY : None. SURGICAL HISTORY : None. ENCOUNTER: Initial ACUITY: 2 weeks PAIN SCORE: 5/10 LOCATION: Right ankle. FINDINGS: Three view exam was performed of the right ankle. The bony structures are in normal alignment. No e vidence of fracture, dislocation, or soft tissue swelling. The ankle mortise is intact. No radiopaq ue foreign bodies are seen. Bony mineralization is normal. CONCLUSION: Unremarkable examination of the right ankle. Martin Hilton MD on January 12, 2017 at 17:06 Board Certified Radiologist. This report was verified electronically.
[2017-01-12 17:36] LABS: AUTOMATED NEUTROPHIL # 5.7 TH/MM3 (1.8-7.7); BASOPHIL % 0.3 % (0.0-2.0); EOSINOPHIL # 0.2 TH/MM3 (0-0.4); EOSINOPHIL % 2.5 % (0.0-4.0); HEMATOCRIT 35.8 % (35.0-46.0); LYMPH % 26.5 % (9.0-44.0); LYMPHOCYTE # 2.3 TH/MM3 (1.0-4.8); MEAN CELL VOLUME 85.4 FL (80.0-100.0); MEAN CORPUSCULAR HEMOGLOBIN 30.7 PG (27.0-34.0); MONO % 5.8 % (0.0-8.0); NEUT % 64.9 % (16.0-70.0); PLATELET COUNT 219 TH/MM3 (150-450); RED BLOOD COUNT 4.19 MIL/MM3 (4.00-5.30); RED CELL DISTRIBUTION WIDTH 12.4 % (11.6-17.2); WHITE BLOOD COUNT 8.7 TH/MM3 (4.0-11.0)
[2017-01-12 17:42] LABS: APTT (PATIENT) 27.6 SEC (24.3-30.1); PROTHROMBIN TIME - PATIENT 11.4 SEC (9.8-11.6)
[2017-01-12 17:46] LABS: HEMO FLAGS AUTO DIFF
[2017-01-12 18:00] LABS: ALT (GPT) 22 U/L (10-53); ANION GAP 9 MEQ/L (5-15); AST (GOT) 16 U/L (15-37); BICARBONATE 25.4 MEQ/L (21.0-32.0); BLOOD UREA NITROGEN 11 MG/DL (7-18); CHLORIDE 103 MEQ/L (98-107); GLOMERULAR FILTRATION RATE 64 ML/MIN (>89); POTASSIUM 4.1 MEQ/L (3.5-5.1); SODIUM (NA) 137 MEQ/L (136-145)
[2017-01-12 18:02] LABS: ALKALINE PHOSPHATASE 60 U/L (45-117); TOTAL BILIRUBIN ADULT 1.1 MG/DL (0.2-1.0)
[2017-01-12 18:19] LABS: PLATELET ESTIMATE SMEAR NORMAL (NORMAL); PLATELET MORPHOLOGY NORMAL (NORMAL); SCAN/DIFF AUTO DIFF CONFIRMED
[2017-01-12 19:17] LABS: BACTERIA, URINE MANY /hpf; BLOOD, URINE TRACE (NEG); COMMENT (UR) CULTURE INDICATED; CULTURE IF INDICATED CULTURE INDICATED; GLUCOSE,URINE NEG (NEG); KETONE, URINE 10 mg/dL (NEG); NITRITE,URINE NEG (NEG); PH, URINE 5.5 (5.0-8.5); SQUAMOUS EPITHELIAL CELL URINE 42 /hpf (0-5); URINE COLOR YELLOW (YELLW/STRAW)
[2017-01-12 19:18] LABS: AMPHETAMINE, URINE NEG (NEG); BARBITURATES, URINE NEG (NEG); COCAINE, URINE POS (NEG)
--- NOTE | 2017-01-12 20:28 | PD ---
Physical Exam Date Seen by Provider: Jan 12, 2017 Time Seen by Provider: 20:27 Narrative This patient was initially seen by MARIA TERESA Tucker. Please see her note for those details. This is a 36-year-old female who presents to the ED for evaluation of multiple medical complaints. She complains of nonproductive cough, sinus congestion and clear rhinorrhea. She complains of low-grade fever, last temp 2 days ago. She complains of thick white vaginal discharge. She denies dysuria. She denies sexual activity. She also complains of bruising and pain of the right ankle. She can recall no acute injury. She denies headache, dizziness, chest pain, shortness of breath, abdominal pain, nausea, vomiting, muscular weakness. She endorses distant history of IV drug abuse. She adamantly denies current IVDU. GENERAL: Well-nourished, well-developed fidgety white female in no acute distress. SKIN: Warm and dry. Patient has several, subcentimeter scabs over the back. No surrounding erythema, edema or discharge. There is a tender area ~ 2cm x 5cm over the right anterior ankle that is mottled, dark, erythematous. Suspect bruising, hematoma, possibly very early abscess. There seemed to be several small puncture wounds in this area as well. Patient adamantly denies current IVDA. HEAD: Normocephalic. EYES: No scleral icterus. No injection or drainage. Pupils pinpoint bilaterally. ENT: Pearly slater tympanic membranes bilaterally. Oropharynx without erythema, edema, exudates. Airways patent. Uvula midline. Thick coating on the tongue that does not scrape with tongue depressor. NECK: Supple, trachea midline. No JVD or lymphadenopathy. CARDIOVASCULAR: Regular rate and rhythm without murmurs, gallops, or rubs. 2+ DP and radial pulses. RESPIRATORY: Breath sounds clear and equal bilaterally. No accessory muscle use. GASTROINTESTINAL: Abdomen soft, non-tender, nondistended. Active bowel sounds. MUSCULOSKELETAL: No cyanosis, or edema. Patient maintains full, active ROM of bilateral extremities. BACK: No obvious deformity. No midline tenderness. No CVA tenderness. Data Data Last Documented VS Vital Signs Date Time Temp Pulse Resp B/P Pulse Ox O2 Delivery O2 Flow Rate FiO2 01/12/17 21:58 90 16 128/90 97 01/12/17 20:29 Room Air 01/12/17 13:09 98.4 Orders Complete Blood Count With Diff (01/12/17 16:40) Comprehensive Metabolic Panel (01/12/17 16:40) Prothrombin Time / Inr (Pt) (01/12/17 16:40) Act Partial Throm Time (Ptt) (01/12/17 16:40) Ankle, Complete ([id number]) (01/12/17 ) Chest, Single Ap (01/12/17 ) Urinalysis - C+S If Indicated (01/12/17 16:40) Ed Urine Pregnancytest Poc (01/12/17 16:40) Drug Screen, Random Urine (01/12/17 16:43) Urine Culture (01/12/17 18:55) Blood Culture (01/12/17 20:48) Sulfamet-Trimeth Ds 800-160 Mg (Bactrim (01/12/17 21:00) Cephalexin (Keflex) (01/12/17 21:00) Ibuprofen (Motrin) (01/12/17 21:00) Labs Laboratory Tests Test 01/12/17 01/12/17 17:05 18:55 White Blood Count 8.7 TH/MM3 Red Blood Count 4.19 MIL/MM3 Hemoglobin 12.9 GM/DL Hematocrit 35.8 % Mean Corpuscular Volume 85.4 FL Mean Corpuscular Hemoglobin 30.7 PG Mean Corpuscular Hemoglobin 36.0 % Concent Red Cell Distribution Width 12.4 % Platelet Count 219 TH/MM3 Mean Platelet Volume 6.8 FL Neutrophils (%) (Auto) 64.9 % Lymphocytes (%) (Auto) 26.5 % Monocytes (%) (Auto) 5.8 % Eosinophils (%) (Auto) 2.5 % Basophils (%) (Auto) 0.3 % Neutrophils # (Auto) 5.7 TH/MM3 Lymphocytes # (Auto) 2.3 TH/MM3 Monocytes # (Auto) 0.5 TH/MM3 Eosinophils # (Auto) 0.2 TH/MM3 Basophils # (Auto) 0.0 TH/MM3 CBC Comment AUTO DIFF Differential Comment AUTO DIFF CONFIRMED Platelet Estimate NORMAL Platelet Morphology Comment NORMAL Red Cell Morphology Comment NORMAL Prothrombin Time 11.4 SEC Prothromb Time International 1.0 RATIO Ratio Activated Partial 27.6 SEC Thromboplast Time Sodium Level 137 MEQ/L Potassium Level 4.1 MEQ/L Chloride Level 103 MEQ/L Carbon Dioxide Level 25.4 MEQ/L Anion Gap 9 MEQ/L Blood Urea Nitrogen 11 MG/DL Creatinine 0.98 MG/DL Estimat Glomerular Filtration 64 ML/MIN Rate Random Glucose 79 MG/DL Calcium Level 9.0 MG/DL Total Bilirubin 1.1 MG/DL Aspartate Amino Transf 16 U/L (AST/SGOT) Alanine Aminotransferase 22 U/L (ALT/SGPT) Alkaline Phosphatase 60 U/L Total Protein 7.5 GM/DL Albumin 3.9 GM/DL Urine Color YELLOW Urine Turbidity HAZY Urine pH 5.5 Urine Specific [place] 1.014 Urine Protein NEG mg/dL Urine Glucose (UA) NEG mg/dL Urine Ketones 10 mg/dL Urine Occult Blood TRACE Urine Nitrite NEG Urine Bilirubin NEG Urine Urobilinogen LESS THAN 2.0 MG/DL Urine Leukocyte Esterase TRACE Urine RBC 2 /hpf Urine WBC 2 /hpf Urine Squamous Epithelial 42 /hpf Cells Urine Bacteria MANY /hpf Microscopic Urinalysis Comment CULTURE INDICATED Urine Opiates Screen NEG Urine Barbiturates Screen NEG Urine Amphetamines Screen NEG Urine Benzodiazepines Screen NEG Urine Cocaine Screen POS Urine Cannabinoids Screen NEG MDM Supervised Visit with KRISTA: No Differential Diagnosis Viral syndrome versus influenza versus STI versus candidiasis versus UTI versus musculoskeletal pain versus bony injury versus abscess versus cellulitis versus other Narrative Course This patient was initially seen by MARIA TERESA Tucker. Please see her note for those details. This is a 36-year-old female who presents to the ED for evaluation of multiple medical complaints including nonproductive cough, sinus congestion and clear rhinorrhea, thick white vaginal discharge, right-sided back pain, bruising, pain of the ankle. She denies headache, dizziness, chest pain, shortness of breath, abdominal pain, nausea, vomiting, dysuria, sexual activity, muscular weakness. She endorses distant history of IV drug abuse. She adamantly denies current IVDU. Vitals reviewed. The patient is tachycardic in triage but this resolved during the course of her evaluation. Physical exam reveals a well-nourished, well- developed, fidgety white female in no acute distress. There are several subcentimeter scabs over the back without signs of infection. There is a 2 cm x 5 cm area over the right anterior ankle that is mottled, dark and erythematous. I suspect it is either bruising, hematoma, possibly a very early abscess. There do seem to be several miniscule puncture wounds in this area. Again the patient adamantly denies IVDA. Pupils pinpoint bilaterally. ENT exam otherwise unremarkable. No appreciable M/R/G. Equal pulses in the extremities. Chest CTAB. Abdomen soft, nontender. Bilateral CVA tenderness. CBC: WBC 8.7. Hemoglobin 12.9. INR 1.0. CMP: Unremarkable. UA: Hazy, trace occult blood, trace leukocyte esterase, 2 WBCs, many bacteria. Culture pending. UDS: Positive for cocaine. ED urine test: Negative Ankle x-ray: No acute disease per radiology read. CXR: No acute disease per radiology read. I offered to perform a pelvic exam, STI testing. The patient declined at this time, saying that she is not sexually active and therefore could not of been exposed. She does state that her symptoms are very similar to previous episodes of candidiasis. This is urinary tract infection. I am concerned that the patient may have an early cellulitis in the right ankle- especially considering her history of IVDU and the associated risks. Blood cultures were ordered and are pending at this time. She was prescribed Bactrim DS twice a day 7 days and Keflex 250 mg 4 times a day 10 days. First doses of antibiotics were administered in the ED along with 800 mg ibuprofen. She is instructed to take all medication as prescribed, even if symptoms resolve, follow up with primary care provider. We discussed reasons to return to the ED. She indicated understanding of instructions. She is amenable to the plan of care. She is stable and discharged home. Diagnosis Primary Impression: Urinary tract infection Qualified Code: N39.0 - Urinary tract infection without hematuria, site unspecified Additional Impressions: Rash and nonspecific skin eruption Vaginal candidiasis Referrals: Primary Care Physician Patient Instructions: General Instructions, Urinary Tract Infection in Women ( ED), Vulvovaginal Candidiasis (ED) Additional Instruction: Rest, hydrate. Take all medication as prescribed, even if symptoms resolve. Return to the ED for worsening of the right ankle rash as discussed. Follow-up with the primary care provider this week. Return to the ED for any urgent or emergent medical condition. Med/Other Pt SpecificInfo: Prescription(s) given Scripts Cephalexin (Keflex)250 Mg [id number] Mg PO Q6H 10 Days Ref 0 Prov:Faith Meehan MD 01/12/17 Sulfamethoxazole-Trimethoprim (Bactrim DS)800-160 Mg Tab1 Tab PO BID #14 TAB Ref 0 Prov:Faith Meehan MD 01/12/17 Tioconazole Vaginal (Monistat 1-Day Vaginal)6.5% Oint1 Appl VAGINAL HS #1 APPL Ref 0 Prov:Faith Meehan MD 01/12/17 Disposition: 01 DISCHARGE HOME Condition: Stable Saray Rasmussen Jan 12, 2017 20:27
[2017-01-12 20:29] VITALS: BP 135/62; PULSE 92; RESP 14; O2SAT 98
[2017-01-12] MEDS ORDERED: BACT800T5 PO (20:57)
[2017-01-12] MEDS ORDERED: CEPH-459 PO (20:57)
[2017-01-12] MEDS ORDERED: TIOC1OIN3 VAGINAL (20:57)
[2017-01-12] MEDS ORDERED: CEPHALEXIN MONOHYDRATE 250 MG CAP PO ONE (21:00)
[2017-01-12] MEDS ORDERED: SULFAMETHOXAZOLE-TRIMETHOPRIM DS 800-160 MG TAB PO ONE (21:00)
[2017-01-12] MEDS ORDERED: IBUPROFEN 800 MG TAB PO ONE (21:00)
[2017-01-12 21:58] VITALS: BP 128/90
== END 2017-01-12 22:06 | disposition home or self-care (01) ==
LOC: NEPE 13:06
DX: N39.0 Urinary tract infection, site not specified (principal); B96.89 Other specified bacterial agents as the cause of diseases classified elsewhere; R21 Rash and other nonspecific skin eruption; B37.3 Candidiasis of vulva and vagina; R05 Cough; R50.9 Fever, unspecified
CPT/HCPCS: 71010; 73610; 80053; 80307; 81001; 84703; 85025; 85610; 85730; 87040; 87086; 99283

== ENCOUNTER 2017-01-26 11:43 | Emergency (ER) | payer SELFPAY ==
[~2017-01-26] VITALS: Ht 160 cm; Wt 77.0 kg
[~2017-01-26 11:43] MED LIST changes: +BACT800T5 PO; +CEPH-459 PO; -KETO10 PO; +TIOC1OIN3 VAGINAL
[2017-01-26 12:05] VITALS: BP 104/70; PULSE 85; RESP 16; TEMP 98.4; O2SAT 100
--- NOTE | 2017-01-26 12:34 | PD ---
HPI Chief Complaint: Skin Problem Time Seen by Provider: 12:17 Travel History International Travel<30 days: No Contact w/Intl Traveler<30days: No Traveled to known affect area: No History of Present Illness HPI The patient is a 36-year-old female who presents emergency department for pain and swelling of the right lower extremity. The patient states she was diagnosed with cellulitis 2 weeks ago of the right lower extremity. The patient had some redness located over the anterior aspect of the right ankle and distal tibia/fibula. The patient states she was placed on Keflex and Bactrim at that time, over, continues to have skin changes over the affected area. She now notes the area slightly darkened with a trace of redness on the outside of that, hypersensitive to palpation with mild edema of the right foot. She denies any acute trauma to the area, however, after repetitive questioning she does admit to previous IVDA with injections to the affected area. She denies any fever, chills, or sweats. The patient states she does not currently have a primary physician. She denies any tenderness behind the right calf for right knee. PFSH Past Medical History Anxiety: Yes Depression: Yes Cardiovascular Problems: No Endocrine: No Genitourinary: No Immune Disorder: No Musculoskeletal: Yes (CHRONICK NECK,BACK PAIN) Neurologic: No Psychiatric: Yes Reproductive: No Respiratory: No Immunizations Current: Yes ?: Not LMP: 3 WEEKS AGO : 2 Para: 2 Tubal Ligation: Yes Past Surgical History Section: Yes (X 1) Cholecystectomy: Yes Other Surgery: Yes Social History Alcohol Use: Yes (occ) Tobacco Use: Yes (1PPD) Substance Use: Yes (cocaine) Allergies-Medications (Allergen,Severity, Reaction): Coded Allergies: No Known Allergies (Verified , 01/26/17) Reported Meds & Prescriptions Reported Meds & Active Scripts Active Keflex (Cephalexin) 250 Mg Cap 250 Mg PO Q6H 10 Days Bactrim DS (Sulfamethoxazole-Trimethoprim) 800-160 Mg Tab 1 Tab PO BID Monistat 1-Day Vaginal (Tioconazole Vaginal) 6.5% Oint 1 Appl VAGINAL HS Review of Systems General / Constitutional: No: Fever Musculoskeletal: Positive: Edema, Pain Skin: Positive Other (as noted in the history of present illness) Neurologic: Positive: Sensory Disturbance (complains of numbness over the medial aspect of the right foot where the area is edematous) Physical Exam Narrative GENERAL: Awake, alert, nontoxic-appearing 36-year-old female who appears her stated age and is in no acute respiratory distress. SKIN: Warm and dry. HEAD: Atraumatic. Normocephalic. EYES: No injection or drainage. ENT: No nasal bleeding or discharge. Mucous membranes pink and moist. NECK: Trachea midline. No JVD. MUSCULOSKELETAL: Inspection right lower extremity does reveal an area of the anterior aspect the distal tibia/fibula and proximal right foot with irregular borders, mild surrounding erythema, and hypersensitive hicks of the skin. Positive dorsalis pedal pulse. Mild edema of the right foot. No crepitus noted. Negative Homans sign. NEUROLOGICAL: Awake and alert. No obvious cranial nerve deficits. Motor grossly within normal limits. Normal speech. PSYCHIATRIC: Appropriate mood and affect; insight and judgment normal. Data Data Last Documented VS Vital Signs Date Time Temp Pulse Resp B/P Pulse Ox O2 Delivery O2 Flow Rate FiO2 01/26/17 12:05 98.4 85 16 104/70 100 MDM Medical Decision Making Medical Screen Exam Complete: Yes Emergency Medical Condition: Yes Medical Record Reviewed: Yes Differential Diagnosis Differential diagnosis includes cellulitis, vasculitis, necrotizing fasciitis, abscess, chronic skin changes from previous IVDA. Narrative Course I reviewed the patient's EMR, she was seen for similar symptoms 2 weeks ago in the emergency department had an x-ray which was unremarkable. There is no subcutaneous air at that time. I highly doubt necrotizing fasciitis that is been ongoing for several weeks. The patient does have a history of IVDA to the affected area and may have a local vasculitis and/or reaction to previous injection. Patient has positive distal pulses and surrounding erythema, we'll place on clindamycin. The patient is advised to follow-up with dermatology for biopsy and evaluation. Diagnosis Primary Impression: Rash and nonspecific skin eruption Patient Instructions: General Instructions Additional Instructions: Clindamycin as directed. Follow-up with dermatology for biopsy and definitive diagnosis. Return for fever Med/Other Pt SpecificInfo: Prescription(s) given Scripts Clindamycin (Cleocin)150 Mg [id number] Mg PO Q6H 7 Days Ref 0 Prov:Justin Francisco MD 01/26/17 Disposition: 01 DISCHARGE HOME Condition: Stable Justin Francisco MD Jan 26, 2017 12:34
[2017-01-26] MEDS ORDERED: CLIN150 PO (12:38)
== END 2017-01-26 13:03 | disposition home or self-care (01) ==
LOC: PHED 11:43
DX: R21 Rash and other nonspecific skin eruption (principal); F41.8 Other specified anxiety disorders
CPT/HCPCS: 99283

== ENCOUNTER 2017-11-09 13:33 | Emergency (ER) | payer SELFPAY ==
[~2017-11-09 13:33] MED LIST changes: -BACT800T5 PO; +CLIN150 PO; -TIOC1OIN3 VAGINAL
[2017-11-09 13:41] VITALS: BP 128/89; PULSE 102; RESP 20; TEMP 98.8; O2SAT 97
[2017-11-09] MEDS ORDERED: SODIUM CHLORIDE 0.9% FLUSH 10 ML FLUSH IV FLUSH PRN (14:15)
[2017-11-09] MEDS ORDERED: ONDANSETRON HCL 4 MG/2 ML VIAL IVP ONE (14:15)
--- NOTE | 2017-11-09 14:25 | PD ---
HPI Chief Complaint: Abdominal Pain Time Seen by Provider: 13:58 Travel History International Travel<30 days: No Contact w/Intl Traveler<30days: No Traveled to known affect area: No History of Present Illness HPI The patient was seen and examined in the presence of the nurse. This patient complains of abdominal pain. Location is epigastric. She does have a lot of heartburn. She has history of cholecystitis and earlier this year had her gallbladder removed and stent placed and gallstone removal during ERCP. She never followed up afterwards. She denies fever. She did have some nausea and vomited today. Also had an episode of diarrhea. Symptoms severity is moderate. No alleviating factors. There are no Exacerbating factors. She does not drink alcohol PFSH Past Medical History Anxiety: Yes Depression: Yes Cardiovascular Problems: No Diminished Hearing: No Endocrine: No Gastrointestinal Disorders: No Genitourinary: No Immune Disorder: No Implanted Vascular Access Dvce: No Musculoskeletal: Yes (CHRONICK NECK,BACK PAIN) Neurologic: No Psychiatric: Yes Reproductive: No Respiratory: No Immunizations Current: Yes Tetanus Vaccination: Unknown ?: Not LMP: 10/30/17 : 2 Para: 2 Tubal Ligation: Yes Past Surgical History Section: Yes (X 1) Cholecystectomy: Yes Other Surgery: Yes Social History Alcohol Use: Yes (occ) Tobacco Use: Yes (1PPD) Substance Use: Yes (cocaine) Allergies-Medications (Allergen,Severity, Reaction): Coded Allergies: No Known Allergies (Verified Adverse Reaction, Unknown, 11/09/17) Reported Meds & Prescriptions Reported Meds & Active Scripts Active Zofran (Ondansetron HCl) 4 Mg Tab 4 Mg PO Q6HR PRN Review of Systems General / Constitutional: No: Fever Eyes: No: Visual changes HENT: No: Headaches Cardiovascular: No: Chest Pain or Discomfort Respiratory: No: Shortness of Breath Gastrointestinal: Positive: Nausea, Vomiting, Diarrhea, Abdominal Pain Genitourinary: No: Dysuria Musculoskeletal: No: Pain Skin: No Rash Neurologic: No: Weakness Psychiatric: No: Depression Endocrine: No: Polydipsia Hematologic/Lymphatic: No: Easy Bruising Physical Exam Narrative GENERAL: Well-nourished, well-developed patient with some dyspepsia symptoms and epigastric pain SKIN: Focused skin assessment reveals no rash and nodules. Skin is Warm and dry. HEAD: Atraumatic. Normocephalic. EYES: Pupils equal and round. No scleral icterus. No injection or drainage. ENT: No nasal bleeding or discharge. Mucous membranes pink and moist. NECK: Trachea midline. No JVD. CARDIOVASCULAR: Regular rate and rhythm. No murmur appreciated. RESPIRATORY: No accessory muscle use. Clear to auscultation. Breath sounds equal bilaterally. GASTROINTESTINAL: Abdomen soft, non-tender, nondistended. Hepatic and splenic margins not palpable. MUSCULOSKELETAL: No obvious deformities. No clubbing. No cyanosis. No edema. NEUROLOGICAL: Awake and alert. No obvious cranial nerve deficits. Motor grossly within normal limits. Normal speech. PSYCHIATRIC: Appropriate mood and affect; insight and judgment normal. Data Data Last Documented VS Vital Signs Date Time Temp Pulse Resp B/P (MAP) Pulse Ox O2 Delivery O2 Flow Rate FiO2 11/09/17 15:17 141/76 (97) 11/09/17 13:41 98.8 102 20 97 Orders Orders Beta Hcg (Quant/Titer) (11/09/17 14:07) Complete Blood Count With Diff (11/09/17 14:07) Comprehensive Metabolic Panel (11/09/17 14:07) Lipase (11/09/17 14:07) Iv Access Insert/Monitor (11/09/17 14:07) NPO (11/09/17 14:07) Sodium Chloride 0.9% Flush (Ns Flush) (11/09/17 14:15) Ondansetron Inj (Zofran Inj) (11/09/17 14:15) Labs Laboratory Tests Test 11/09/17 14:30 White Blood Count 11.0 TH/MM3 Red Blood Count 5.12 MIL/MM3 Hemoglobin 14.4 GM/DL Hematocrit 44.0 % Mean Corpuscular Volume 86.1 FL Mean Corpuscular Hemoglobin 28.1 PG Mean Corpuscular Hemoglobin Concent 32.7 % Red Cell Distribution Width 12.9 % Platelet Count 221 TH/MM3 Mean Platelet Volume 6.7 FL Neutrophils (%) (Auto) 82.5 % Lymphocytes (%) (Auto) 9.4 % Monocytes (%) (Auto) 6.2 % Eosinophils (%) (Auto) 0.1 % Basophils (%) (Auto) 1.8 % Neutrophils # (Auto) 9.1 TH/MM3 Lymphocytes # (Auto) 1.0 TH/MM3 Monocytes # (Auto) 0.7 TH/MM3 Eosinophils # (Auto) 0.0 TH/MM3 Basophils # (Auto) 0.2 TH/MM3 CBC Comment DIFF FINAL Differential Comment Blood Urea Nitrogen 12 MG/DL Creatinine 0.98 MG/DL Random Glucose 97 MG/DL Total Protein 7.9 GM/DL Albumin 3.5 GM/DL Calcium Level 8.6 MG/DL Alkaline Phosphatase 77 U/L Aspartate Amino Transf (AST/SGOT) 11 U/L Alanine Aminotransferase (ALT/SGPT) 17 U/L Total Bilirubin 0.6 MG/DL Sodium Level 133 MEQ/L Potassium Level 4.0 MEQ/L Chloride Level 101 MEQ/L Carbon Dioxide Level 22.8 MEQ/L Anion Gap 9 MEQ/L Estimat Glomerular Filtration Rate 64 ML/MIN Lipase 297 U/L Human Chorionic Gonadotropin, Quant LESS THAN 1 MIU/ML MDM Medical Decision Making Medical Screen Exam Complete: Yes Emergency Medical Condition: Yes Medical Record Reviewed: Yes Differential Diagnosis Differential diagnosis includes pancreatitis, biliary colic, hepatitis, GERD, peptic ulcer disease. Narrative Course I have reviewed the patient's electronic medical record. Reviewed her cholecystitis visit from earlier in the year IV placed CBC is normal metabolic profile is normal LFT's are normal lipase is normal I gave her IV Zofran Workup here is negative. She looks comfortable and stable for outpatient follow -up Recommend daily acid blocking medication. Avoidance of IV drug abuse. Recommend GI follow-up Zofran prescribed Presentation more consistent with dyspepsia or peptic ulcer disease I don't think this is related to her retained stent Diagnosis Primary Impression: Acute epigastric pain Additional Instructions: The patient was advised to follow up with their physician and GI physician and return if they worsen. Start daily Prilosec which is [id number] Med/Other Pt SpecificInfo: Prescription(s) given Scripts Ondansetron (Zofran) 4 Mg Tab 4 MG PO Q6HR Y for NAUSEA OR VOMITING, #12 TAB 0 Refills Prov: Clif Franco MD 11/09/17 Disposition: 01 DISCHARGE HOME Condition: Stable Clif Franco MD Nov 09, 2017 14:25
[2017-11-09 14:36] LABS: AUTOMATED NEUTROPHIL # 9.1 TH/MM3 (1.8-7.7); BASOPHIL # 0.2 TH/MM3 (0-0.2); BASOPHIL % 1.8 % (0.0-2.0); EOSINOPHIL % 0.1 % (0.0-4.0); LYMPH % 9.4 % (9.0-44.0); MEAN CELL VOLUME 86.1 FL (80.0-100.0); MEAN CORPUSCULAR HEMOGLOBIN 28.1 PG (27.0-34.0); MEAN CORPUSCULAR HGB CONC 32.7 % (32.0-36.0); MONO % 6.2 % (0.0-8.0); NEUT % 82.5 % (16.0-70.0); PLATELET COUNT 221 TH/MM3 (150-450); RED BLOOD COUNT 5.12 MIL/MM3 (4.00-5.30); RED CELL DISTRIBUTION WIDTH 12.9 % (11.6-17.2)
[2017-11-09 14:37] LABS: HEMO FLAGS DIFF FINAL
[2017-11-09 14:44] LABS: CHLORIDE 101 MEQ/L (98-107); SODIUM (NA) 133 MEQ/L (136-145)
[2017-11-09 14:47] LABS: ANION GAP 9 MEQ/L (5-15); BICARBONATE 22.8 MEQ/L (21.0-32.0); BLOOD UREA NITROGEN 12 MG/DL (7-18)
[2017-11-09 14:50] LABS: ALT (GPT) 17 U/L (10-53); AST (GOT) 11 U/L (15-37); GLOMERULAR FILTRATION RATE 64 ML/MIN (>89)
[2017-11-09 14:52] LABS: TOTAL BILIRUBIN ADULT 0.6 MG/DL (0.2-1.0)
[2017-11-09 14:53] LABS: ALKALINE PHOSPHATASE 77 U/L (45-117)
[2017-11-09 14:55] LABS: BETA HCG QUANT LESS THAN 1 MIU/ML (0-5)
[2017-11-09 15:17] VITALS: BP 141/76
[2017-11-09] MEDS ORDERED: ZOFR4TAB PO (16:02)
== END 2017-11-09 16:10 | disposition home or self-care (01) ==
LOC: PHED 13:33
DX: R10.13 Epigastric pain (principal); R19.7 Diarrhea, unspecified; F17.200 Nicotine dependence, unspecified, uncomplicated
CPT/HCPCS: 80053; 83690; 84702; 85025; 96374; 99284; J2405

== ENCOUNTER 2018-06-24 07:02 | Inpatient (IN) ==
[2018-06-24] MEDS ORDERED: Tetanus/Diphtheria Toxoid Adult Vaccine Inj 0.5 ML Vial IM ONE (07:44)
--- NOTE | 2018-06-24 07:44 | ED ---
HPI General Chief Complaint: Skin/Abscess/Foreign Body Stated Complaint: Skin complaint Time Seen by Provider: 06/24/18 07:19 Source: patient Mode of arrival: ambulatory Limitations: no limitations History of Present Illness HPI narrative: The patient is a 37-year-old female with past medical history significant for IV drug abuse. She stated that the last time she used was on June 10 where she shot up heroin in her left hand and then went to detox. She states that she has been clean since the but her hand has been progressively swelling and getting worse. MD complaint: injury to: left Onset (ago): day(s) (6) Other Extremity Injury: Left: hand (Swelling and pain) Other injuries: none Handedness: right Severity: moderate Severity scale (1-10): 7 Relieving factors: none Context: other (IVDA) Associated symptoms: denies other symptoms Related Data Home Medications Medication Instructions Recorded Confirmed gabapentin 300 mg PO BID 06/24/18 06/24/18 Previous Rx's Medication Instructions Recorded ciprofloxacin HCl 500 mg PO Q12HR #20 tab 06/26/18 sulfamethoxazole-trimethoprim 1 tab PO Q12HR #20 tab 06/26/18 Allergies Allergy/AdvReac Type Severity Reaction Status Date / Time No Known Allergies Allergy Unverified 06/24/18 08:05 Review of Systems ROS Unobtainable All other systems reviewed negative except as stated in HPI Constitutional Denies chills, Denies fever(s), Denies malaise and Denies night sweats Integumentary/Breasts Reports skin swelling Neurologic Reports system reviewed and no additional complaints, except as docu PMFSH History History Provided By: Patient Medical History Medical History IV drug abuse (Acute) Wound of left foot (Acute) Surgical History Surgical History Hx of cholecystectomy (Acute) Family History Family History Other Diabetes Hypertension Social History Social History Substance History: Active Abuse Second Hand Smoke Exposure: Yes Smoking Status: Heavy tobacco smoker Tobacco Type: Cigarettes How Often Do You Have a Drink Containing Alcohol: 2 to 3 times a week Recent Travel in [facility] within the Last 8 Weeks: No Recent Out of Country Travel within the Last 8 Weeks: No Immunization History Tetanus Immunization: Unsure Exam Narrative Exam Narrative: GENERAL: Alert and oriented in no distress SKIN: Focused skin assessment warm/dry cellulitis overlying the dorsum of the left hand extending above the wrist. No lymphangiitis HEAD: Atraumatic. Normocephalic. EYES: Pupils equal and round. No scleral icterus. No injection or drainage. ENT: No nasal bleeding or discharge. Mucous membranes pink and moist. NECK: Trachea midline. No JVD. CARDIOVASCULAR: Regular rate and rhythm. No murmur appreciated. Capillary refill of the affected hand brisk less than 2 seconds. Radial and ulnar pulses palpated. RESPIRATORY: No accessory muscle use. Clear to auscultation. Breath sounds equal bilaterally. GASTROINTESTINAL: Abdomen soft, non-tender, nondistended. Hepatic and splenic margins not palpable. MUSCULOSKELETAL: Patient with large abscess on the ulnar aspect of the left hand dorsum with tenderness to palpation indurated tissue. Flexion fluid palpated.. No clubbing. No cyanosis. No edema. NEUROLOGICAL: Patient reports numbness on the dorsal aspect of her left hand awake and alert. No obvious cranial nerve deficits. Motor grossly within normal limits. Normal speech. PSYCHIATRIC: Appropriate mood and affect; insight and judgment normal. Course Hospital Course: Patient with an abscess confirmed by CT. Mild leukocytosis. Hand surgeon was consulted and will I&D the lesion in the emergency department. She received IV antibiotics for broad-spectrum coverage will admit for observation and IV antibiotics possible discharge in the a.m. Reevaluation(s) Reevaluation #1: Gas findings with the patient and the fact that she will need to be admitted for surgical drainage of abscess as well as IV antibiotics. Time: 14:01 Reevaluation #2: Resting comfortably no distress not appearing toxic stable vitals. Time: 16:00 Consultations Consultation #1: Dr. Quick hand surgery was consulted and will I&D the patient's abscess in the emergency department. Time: 16:01 Initial Documented Vital Signs Temperature 98.5 F 06/24/18 07:05 Pulse Rate 95 H 06/24/18 07:05 Respiratory Rate 16 06/24/18 07:05 Blood Pressure 144/66 H 06/24/18 07:05 Pulse Oximetry 98 06/24/18 07:05 Last Documented Vital Signs Temperature 98.3 F 06/26/18 08:00 Pulse Rate 78 06/26/18 08:00 Respiratory Rate 18 06/26/18 08:00 Blood Pressure 133/76 06/26/18 08:00 Pulse Oximetry 99 06/26/18 08:00 Medical Decision Making MDM Narrative Medical decision making narrative: Patient with left hand abscess and surrounding cellulitis as well as signs of lymphangitis while the emergency department. She received broad-spectrum coverage as well as MRSA coverage with vancomycin. Cultures were obtained. Surgery was consulted and we will I&D the patient and the emergency department. She will be admitted for IV antibiotics. Lab Data Lab results reviewed: Yes I reviewed the patient's lab results. Result diagrams: 06/25/18 08:00 06/25/18 08:00 Lab Results 06/24/18 06/24/18 06/25/18 Range/Units 07:45 07:45 08:00 WBC 12.8 H 9.9 (4.0-11.0) th/mm3 RBC 4.57 4.27 (4.00-5.30) mil/mm3 Hgb 13.6 12.7 (11.6-15.3) gm/dL Hct 39.0 36.8 (35.0-46.0) % MCV 85.2 86.3 (80.0-100.0) fL MCH 29.7 29.7 (27.0-34.0) pg MCHC 34.8 34.4 (32.0-36.0) % RDW 13.2 13.1 (11.6-17.2) % Plt Count 212 195 (150-450) th/mm3 MPV 6.6 L 6.6 L (7.0-11.0) fL Neut % (Auto) 78.4 H 75.3 H (16.0-70.0) % Lymph % (Auto) 15.7 17.7 (9.0-44.0) % Crosby % (Auto) 5.3 5.2 (0.0-8.0) % Eos % (Auto) 0.5 1.5 (0.0-4.0) % Baso % (Auto) 0.1 0.3 (0.0-2.0) % Neut # (Auto) 10.0 H 7.4 (1.8-7.7) th/mm3 Lymph # (Auto) 2.0 1.8 (1.0-4.8) th/mm3 Crosby # (Auto) 0.7 0.5 (0.0-0.9) th/mm3 Eos # (Auto) 0.1 0.2 (0.0-0.4) th/mm3 Baso # (Auto) 0.0 0.0 (0.0-0.2) th/mm3 WBC Differential . . Differential Comment Auto diff final Auto diff final Sodium 139 (136-145) meq/L Potassium 4.0 (3.5-5.1) meq/L Chloride 108 H (98-107) meq/L Carbon Dioxide 24.0 (21.0-32.0) meq/L Anion Gap 7 (5-15) meq/L BUN 9 (7-18) mg/dL Creatinine 0.84 (0.50-1.00) mg/dL Estimated GFR 76 L (>89) mL/min Random Glucose 87 (74-106) mg/dL Calcium 8.7 (8.5-10.1) mg/dL Total Bilirubin (0.2-1.0) mg/dL AST (15-37) U/L ALT (10-53) U/L Alkaline Phosphatase (45-117) U/L Total Protein (6.4-8.2) g/dL Albumin (3.4-5.0) g/dL Urine Opiates Screen (Neg) Ur Barbiturates Screen (Neg) Ur Amphetamines Screen (Neg) U Benzodiazepines Scrn (Neg) Urine Cocaine Screen (Neg) U Cannabinoids Screen (Neg) 06/25/18 06/25/18 Range/Units 08:00 20:00 WBC (4.0-11.0) th/mm3 RBC (4.00-5.30) mil/mm3 Hgb (11.6-15.3) gm/dL Hct (35.0-46.0) % MCV (80.0-100.0) fL MCH (27.0-34.0) pg MCHC (32.0-36.0) % RDW (11.6-17.2) % Plt Count (150-450) th/mm3 MPV (7.0-11.0) fL Neut % (Auto) (16.0-70.0) % Lymph % (Auto) (9.0-44.0) % Crosby % (Auto) (0.0-8.0) % Eos % (Auto) (0.0-4.0) % Baso % (Auto) (0.0-2.0) % Neut # (Auto) (1.8-7.7) th/mm3 Lymph # (Auto) (1.0-4.8) th/mm3 Crosby # (Auto) (0.0-0.9) th/mm3 Eos # (Auto) (0.0-0.4) th/mm3 Baso # (Auto) (0.0-0.2) th/mm3 WBC Differential Differential Comment Sodium 140 (136-145) meq/L Potassium 4.1 (3.5-5.1) meq/L Chloride 110 H (98-107) meq/L Carbon Dioxide 23.3 (21.0-32.0) meq/L Anion Gap 7 (5-15) meq/L BUN 13 (7-18) mg/dL Creatinine 0.78 (0.50-1.00) mg/dL Estimated GFR 83 L (>89) mL/min Random Glucose 89 (74-106) mg/dL Calcium 8.0 L (8.5-10.1) mg/dL Total Bilirubin 0.5 (0.2-1.0) mg/dL AST 10 L (15-37) U/L ALT 14 (10-53) U/L Alkaline Phosphatase 71 (45-117) U/L Total Protein 6.6 (6.4-8.2) g/dL Albumin 3.1 L (3.4-5.0) g/dL Urine Opiates Screen Neg (Neg) Ur Barbiturates Screen Neg (Neg) Ur Amphetamines Screen Neg (Neg) U Benzodiazepines Scrn Neg (Neg) Urine Cocaine Screen Neg (Neg) U Cannabinoids Screen Pos H (Neg) Imaging Data Radiologist's impression: Hand CT 06/24/18 07:41 CONCLUSION: Discharge Plan Discharge Disposition Patient Disposition: 30 Still Patient Discharge Condition Condition: Stable Discharge Order Discharge Orders: Discharge Order (Routine); Ordered 06/26/18 Ordered By: Wesley Burns Hand Surgery Clear for Discharge (Routine); Ordered 06/26/18 Ordered By: Theo Templeton Discharge Details Diagnosis: Abscess of dorsum of left hand, Hx of intravenous drug use, in remission Physicians Team ED Provider: Fuentes Shell Primary Care Provider: Primary Care Karen Berg Attending Provider: Wesley Burns Other Providers: Theo Templeton Status ED Status: Left Department Discharge Information Discharge Date/Time: 06/24/18 17:36
[2018-06-24 08:22] LABS: Baso % (Auto) 0.1 % (0.0-2.0); Eos # (Auto) 0.1 th/mm3 (0.0-0.4); Eos % (Auto) 0.5 % (0.0-4.0); Hemoglobin 13.6 gm/dL (11.6-15.3); Lymph % (Auto) 15.7 % (9.0-44.0); Mean Corpuscular HGB Conc 34.8 % (32.0-36.0); Mean Corpuscular Hemoglobin 29.7 pg (27.0-34.0); Mean Corpuscular Volume 85.2 fL (80.0-100.0); Mean Platelet Volume 6.6 fL (7.0-11.0); Mono # (Auto) 0.7 th/mm3 (0.0-0.9); Mono % (Auto) 5.3 % (0.0-8.0); Neut % (Auto) 78.4 % (16.0-70.0); Platelet Count 212 th/mm3 (150-450); Red Blood Count 4.57 mil/mm3 (4.00-5.30); Red Cell Distribution Width 13.2 % (11.6-17.2); White Blood Count 12.8 th/mm3 (4.0-11.0)
[2018-06-24 08:40] LABS: Calcium 8.7 mg/dL (8.5-10.1)
[2018-06-24] MEDS ORDERED: Piperacil/Tazo 3.375 GM Premix 50 ML IV.SIG ONE (08:47)
[2018-06-24] MEDS ORDERED: Vancomycin Inj 1 GM/200 ML PIGGYBACK IV.SIG ONE (08:47)
[2018-06-24] MEDS ORDERED: Vancomycin Inj 1,000 MG in Sodium Chlor 0.9% Inj 250 ML IV.SIG ONE (09:00)
--- NOTE | 2018-06-24 10:53 | CT ---
EXAM DATE: 06/24/2018 10:43 AM EDT AGE/SEX: 37 years / Female INDICATIONS: Left hand swelling and pain. CLINICAL DATA: This is the patient's initial encounter. Patient reports that signs and symptoms have been present for 3 days and indicates a pain score of 7/10. MEDICAL/SURGICAL HISTORY: . IV drug abuse. None. RADIATION DOSE: 11.61 CTDI (mGy) COMPARISON: No prior exams available for comparison. TECHNIQUE: Multiple contiguous axial images were acquired using a multi-row detector CT scanner afte r the intravenous administration of 69 ml Omnipaque 350 (iohexol) nonionic water-soluble contrast as a single exam dose. Multiplanar reconstruction was performed in the sagittal and coronal planes. Using automated exposure control and adjustment of the mA and/or kV according to patient size, radiat ion dose was kept as low as reasonably achievable to obtain optimal diagnostic quality images. DICOM format image data is available electronically for review and comparison. FINDINGS: Bones: The bony structures about the hand are in normal alignment. The distal radius, distal ulna a nd carpus are intact. No fracture is seen. Joints: No significant arthropathy or bony hypertrophy is seen. Soft Tissues: There is diffuse soft tissue swelling greatest over the dorsum of the hand in the meta carpal region. There is a subtle poorly defined low density area along the dorsal radial aspect of th e second metacarpal with ill-defined surrounding patchy enhancement. This measures up to approximatel y 1.4 x 1.3 x 1.5 cm in greatest diameter and is not well-defined. This is best seen on axial image # 53 of series 3. This also lies along the dorsal aspect of the upper thenar eminence region. There are no gas bubbles. Other: No foreign bodies seen. Post Contrast: No abnormal areas of enhancement are seen in the marrow or soft tissues. 1. Extensive soft tissue swelling and edema as well as a more localized subtle low density region al savanah the posterior aspect of the thenar eminence and second metacarpal with patchy enhancement. This c ould represent early abscess formation. There are no gas bubbles. 2. The underlying bony structures are intact with no evidence suggest osteomyelitis. Electronically signed by: Martin Hilton MD 06/24/2018 10:52 AM EDT
[2018-06-24] MEDS ORDERED: Lidocaine 2%/Epinephrine 1:100,000 30 ML MDV INFILTRATN ONE (15:19)
[2018-06-24] MEDS ORDERED: POVIDONE IODINE 10% TOPICAL ONE (15:21)
[2018-06-24] MEDS ORDERED: Acetaminophen 325 MG Tablet PO ONE (15:21)
[2018-06-24] MEDS ORDERED: Acetaminophen 325 MG Tablet PO PRN (16:45)
[2018-06-24] MEDS ORDERED: Vancomycin Consult Pharmacy 1 EACH OTHER SCH (17:00)
[2018-06-24] MEDS: Piperacil/Tazo 4.5 GM Premix 4.5 GM/100 ML BAG IV.SIG SCH (18:16)
[2018-06-24] MEDS: Sod Chloride 0.9% Inj 1,000 ML IV.CONT SCH (18:16)
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
[2018-06-24] MEDS: Senna/Docusate Sodium 8.6/50 MG Tablet PO SCH (20:10)
[2018-06-24] MEDS: Gabapentin 300 MG Capsule PO SCH (20:10)
[2018-06-24] MEDS: Vancomycin Inj 1,250 MG in Sodium Chlor 0.9% Inj 250 ML IV.SIG SCH (21:24)
[2018-06-24] MEDS: Ketorolac Inj 30 MG/ML (IVP) Vial IV.PUSH SCH (22:29)
[2018-06-25] MEDS: Piperacil/Tazo 4.5 GM Premix 4.5 GM/100 ML BAG IV.SIG SCH ×4 (01:33→17:47)
[2018-06-25] MEDS: Sod Chloride 0.9% Inj 1,000 ML IV.CONT SCH (04:25)
[2018-06-25] MEDS: Ketorolac Inj 30 MG/ML (IVP) Vial IV.PUSH SCH ×3 (06:03→21:35)
[2018-06-25 08:17] LABS: Baso % (Auto) 0.3 % (0.0-2.0); Eos # (Auto) 0.2 th/mm3 (0.0-0.4); Eos % (Auto) 1.5 % (0.0-4.0); Hematocrit 36.8 % (35.0-46.0); Hemoglobin 12.7 gm/dL (11.6-15.3); Lymph # (Auto) 1.8 th/mm3 (1.0-4.8); Lymph % (Auto) 17.7 % (9.0-44.0); Mean Corpuscular HGB Conc 34.4 % (32.0-36.0); Mean Corpuscular Hemoglobin 29.7 pg (27.0-34.0); Mean Corpuscular Volume 86.3 fL (80.0-100.0); Mean Platelet Volume 6.6 fL (7.0-11.0); Mono # (Auto) 0.5 th/mm3 (0.0-0.9); Mono % (Auto) 5.2 % (0.0-8.0); Neut # (Auto) 7.4 th/mm3 (1.8-7.7); Neut % (Auto) 75.3 % (16.0-70.0); Platelet Count 195 th/mm3 (150-450); Red Blood Count 4.27 mil/mm3 (4.00-5.30); Red Cell Distribution Width 13.1 % (11.6-17.2); White Blood Count 9.9 th/mm3 (4.0-11.0)
[2018-06-25] MEDS ORDERED: Pharmacy Ordered Lab Info OTHER ONE (08:45)
[2018-06-25 08:58] LABS: Albumin 3.1 g/dL (3.4-5.0); Anion Gap 7 meq/L (5-15); Aspartate Aminotransferase 10 U/L (15-37); Blood Urea Nitrogen 13 mg/dL (7-18); Carbon Dioxide 23.3 meq/L (21.0-32.0); Chloride 110 meq/L (98-107); Glomerular Filtration Rate 83 mL/min (>89); Glucose,Random 89 mg/dL (74-106); Potassium 4.1 meq/L (3.5-5.1); Sodium 140 meq/L (136-145)
[2018-06-25 09:03] LABS: Alanine Aminotransferase 14 U/L (10-53); Alkaline Phosphatase 71 U/L (45-117); Total Protein 6.6 g/dL (6.4-8.2)
--- NOTE | 2018-06-25 09:15 | P.PN ---
Subjective Interval history: F/u hand abscess. Understands she needs to stay until cleared by hand surgery. She does not want narcotics pain currently 6 out of 10 on IV of Ofirmev and Toradol Physical Exam Vital signs: Vital Signs 06/24/18 12:41 06/24/18 16:00 06/24/18 17:35 Temperature 98.4 F Pulse Rate 82 77 84 Respiratory Rate 15 17 16 Blood Pressure 123/67 118/71 Pulse Oximetry 97 100 06/24/18 19:13 06/24/18 23:15 06/25/18 03:36 Temperature 97.1 F L 98.5 F 98.5 F Pulse Rate 87 86 80 Respiratory Rate 18 18 18 Blood Pressure 132/83 118/67 117/60 Pulse Oximetry 100 100 100 06/25/18 07:17 Temperature 98.3 F Pulse Rate 81 Respiratory Rate 16 Blood Pressure 117/70 Pulse Oximetry 100 Intake & Output 06/24/18 06/25/18 06/25/18 18:59 06:59 18:59 Intake Total 300 / 300 1200 / 1200 Balance 300 / 300 1200 / 1200 Weight 77.111 kg Intake: IV 300 / 300 1200 / 1200 NS Inj 1,000 ML @ 100 mls/hr IV 1000 / 1000 .CONT .Q10H [facility] Rx#:[id number] Ofirmev Inj 1,000 mg In 100 ml 100 / 100 @ 400 mls/hr IV.SIG Q8H [facility] Rx# :[id number] Zosyn 3.375 GM Premix 50 ML @ 50 / 50 100 mls/hr IV.SIG ONCE ONE Rx#: [id number] Zosyn 4.5 GM Premix 4.5 gm In 0 / 0 100 / 100 100 ml @ 200 mls/hr IV.SIG Q6H [facility] Rx#:[id number] Vancomycin Inj 1,000 MG In NS 250 / 250 Inj 250 ML @ 200 mls/hr IV.SIG ONCE ONE Rx#:[id number] Other: # Voids 3 Narrative: GENERAL: Resting comfortably HEENT: NC, AT LUNGS: CTAB CARDIAC: RRR GI: Soft EXTREMITIES: Left hand is bandaged. Able to wiggle fingers of left hand NEURO: No gross deficits Results - Labs CBC & Chem 7: 06/25/18 08:00 06/25/18 08:00 Laboratory Results - last 24 hr 06/25/18 06/25/18 08:00 08:00 WBC 9.9 RBC 4.27 Hgb 12.7 Hct 36.8 MCV 86.3 MCH 29.7 MCHC 34.4 RDW 13.1 Plt Count 195 MPV 6.6 L Neut % (Auto) 75.3 H Lymph % (Auto) 17.7 Frio % (Auto) 5.2 Eos % (Auto) 1.5 Baso % (Auto) 0.3 Neut # (Auto) 7.4 Lymph # (Auto) 1.8 Frio # (Auto) 0.5 Eos # (Auto) 0.2 Baso # (Auto) 0.0 WBC Differential . Differential Comment Auto diff final Sodium 140 Potassium 4.1 Chloride 110 H Carbon Dioxide 23.3 Anion Gap 7 BUN 13 Creatinine 0.78 Estimated GFR 83 L Random Glucose 89 Calcium 8.0 L Total Bilirubin 0.5 AST 10 L ALT 14 Alkaline Phosphatase 71 Total Protein 6.6 Albumin 3.1 L Microbiology 06/24/18 17:00 Abscess - Hand Gram Stain - Final - Imaging Impressions Hand CT 06/24/18 07:41 CONCLUSION: - Procedures I and D hand abscess Assessment and Plan - Plan Left hand abscess. Gram stain with gram-positive cocci S/t IV injection of heroin. S/p I&D by hand surgery. - continue IV vancomycin and Zosyn. - follow wound cultures. - wound care per surgery. - pain control with scheduled IV Tylenol and Toradol. IV drug abuse The pt states she is now clean following recent rehab experience. She requests a drug screen for work. - drug screen pending. - avoid narcotics per pt request. - continue abstinence. Leukocytosis. Improved S/t above. - continue antibiotics. LMP 06/02/18 s/p BTL PPx: SCDs
[2018-06-25] MEDS: Gabapentin 300 MG Capsule PO SCH ×2 (09:29→20:24)
[2018-06-25] MEDS: Vancomycin Inj 1,250 MG in Sodium Chlor 0.9% Inj 250 ML IV.SIG SCH ×2 (09:30→20:21)
[2018-06-25] MEDS: Senna/Docusate Sodium 8.6/50 MG Tablet PO SCH ×2 (09:31→20:24)
[2018-06-25 21:48] LABS: Amphetamine Screen,Urine Neg (Neg); Barbiturate Screen,Urine Neg (Neg); Cannabinoid Screen,Urine Pos (Neg); Cocaine Screen,Urine Neg (Neg)
[2018-06-25 21:57] LABS: Opiate Screen,Urine Neg (Neg)
[2018-06-26] MEDS: Piperacil/Tazo 4.5 GM Premix 4.5 GM/100 ML BAG IV.SIG SCH ×2 (00:08→05:50)
[2018-06-26] MEDS: Ketorolac Inj 30 MG/ML (IVP) Vial IV.PUSH SCH (05:52)
[2018-06-26] MEDS ORDERED: Naloxone Inj 0.4 MG/ML Vial IV.PUSH PRN (08:29)
[2018-06-26] MEDS ORDERED: Ketorolac Inj 30 MG/ML (IVP) Vial IV.PUSH PRN ×2 (08:29)
[2018-06-26] MEDS ORDERED: Acetaminophen 325 MG Tablet PO PRN (08:29)
[2018-06-26] MEDS ORDERED: Pharmacy Ordered Lab Info OTHER ONE (08:45)
[2018-06-26] MEDS: Gabapentin 300 MG Capsule PO SCH (08:56)
[2018-06-26] MEDS: Senna/Docusate Sodium 8.6/50 MG Tablet PO SCH (08:58)
[2018-06-26] MEDS ORDERED: Ciprofloxacin 500 MG Tablet PO SCH (09:15)
--- NOTE | 2018-06-26 09:25 | P.PN ---
Subjective Interval history: Follow-up hand abscess. She is doing okay wants to go home. She has been cleared by hand surgery for discharge with outpatient follow-up. She will be started on p.o. Cipro and Bactrim prior to discharge today Physical Exam Vital signs: Vital Signs 06/25/18 11:30 06/25/18 11:38 06/25/18 12:00 Temperature 98.6 F 98.6 F Pulse Rate 80 80 Respiratory Rate 16 18 16 Blood Pressure 137/85 137/85 Pulse Oximetry 98 98 06/25/18 16:00 06/25/18 19:06 06/25/18 22:55 Temperature 98.8 F 98.5 F 99.1 F Pulse Rate 99 H 83 80 Respiratory Rate 16 18 16 Blood Pressure 122/76 135/85 127/65 Pulse Oximetry 97 100 100 06/26/18 03:21 06/26/18 08:00 Temperature 98.8 F 98.3 F Pulse Rate 72 78 Respiratory Rate 18 18 Blood Pressure 121/70 133/76 Pulse Oximetry 100 99 Intake & Output 06/25/18 06/26/18 06/26/18 18:59 06:59 18:59 Intake Total 565.5 / 565.5 100 / 100 Balance 565.5 / 565.5 100 / 100 Intake: IV 565.5 / 565.5 100 / 100 Ofirmev Inj 1,000 mg In 100 ml 100 / 100 @ 400 mls/hr IV.SIG Q8H [facility] Rx# :[id number] Zosyn 4.5 GM Premix 4.5 gm In 200 / 200 100 / 100 100 ml @ 200 mls/hr IV.SIG Q6H [facility] Rx#:[id number] Vancomycin Inj 1,250 MG In NS 265.5 / 265.5 Inj 250 ML @ 250 mls/hr IV.SIG Q12H [facility] Rx#:[id number] Other: # Voids 6 Narrative: GENERAL: Resting comfortably HEENT: NC, AT LUNGS: CTAB CARDIAC: RRR GI: Soft EXTREMITIES: Small incision left thenar area with no active bleeding. Neurovascularly intact NEURO: No gross deficits Results - Labs CBC & Chem 7: 06/25/18 08:00 06/25/18 08:00 Laboratory Results - last 24 hr 06/25/18 20:00 Urine Opiates Screen Neg Ur Barbiturates Screen Neg Ur Amphetamines Screen Neg U Benzodiazepines Scrn Neg Urine Cocaine Screen Neg U Cannabinoids Screen Pos H Microbiology 06/24/18 17:00 Abscess - Hand Gram Stain - Final 06/24/18 17:00 Abscess - Hand Wound Culture - Preliminary No growth in 24 hours 06/24/18 08:00 Blood - Peripheral Aerobic Blood Culture - Preliminary No growth in 1 day 06/24/18 08:00 Blood - Peripheral Anaerobic Blood Culture - Preliminary No growth in 1 day 06/24/18 07:15 Blood - Peripheral Aerobic Blood Culture - Preliminary No growth in 1 day 06/24/18 07:15 Blood - Peripheral Anaerobic Blood Culture - Preliminary No growth in 1 day - Procedures I and D hand abscess Assessment and Plan - Plan Left hand abscess. Gram stain with gram-positive cocci cultures negative to date. She is stable S/t IV injection of heroin. S/p I&D by hand surgery. -Start Bactrim and Cipro and discontinue IV vancomycin and Zosyn. - follow wound cultures. - wound care per surgery. - pain control with scheduled IV Tylenol and Toradol. May use Motrin IV drug abuse The pt states she is now clean following recent rehab experience. She requests a drug screen for work. - drug screen positive for marijuana - avoid narcotics per pt request. - continue abstinence. Leukocytosis. Improved S/t above. - continue antibiotics. LMP 06/02/18 s/p BTL PPx: SCDs Discharge Planning: Discharge patient to home Condition on discharge: Improved Regular Diet as tolerated Ad Ains[place] activity no driving Rx written: Bactrim and Cipro Follow-up with primary care physician and hand surgeon
--- NOTE | 2018-06-26 17:40 | P.CON ---
History of Present Illness Service: Hand surgery Consult date: 06/24/18 Primary Care Provider: No Primary Care Physician Family Provider: No Primary Care Physician History of Present Illness: The patient is a 37-year-old female with a past medical history significant for IV drug abuse who is presenting to the hospital with left hand pain and swelling. The patient said the last time she injected heroin was Wednesday the of this month and she went to rehab afterwards and is no longer using drugs. She said she missed the vein so initially there was a little bump on her hand but it went away when she went to rehab. She said the hand became infected again yesterday. She stated it got painful, swollen and it was hot to the touch. She says she has never had an abscess before but she did have a problem with her left foot when she injected better last year. Patient now endorsing severe pain to the left dorsal hand. Med list reviewed Review of Systems All other systems reviewed negative except as stated in HPI PMFSH - History History Provided By: Patient - Medical History Medical History: Medical History (Last Updated 06/24/18 @ 18:23 by Martin Paris DO) IV drug abuse Wound of left foot - Surgical History Surgical History: Surgical History (Last Reviewed 06/24/18 @ 15:57 by Fuentes Shell DO) Hx of cholecystectomy - Family History Family History: Family History (Last Updated 06/24/18 @ 18:23 by Martin Paris DO) Other Diabetes Hypertension - Tobacco History Second Hand Smoke Exposure: Yes Tobacco Use In Past 30 Days: Yes Smoking Status: Heavy tobacco smoker Tobacco Type: Cigarettes - Alcohol History How Often Do You Have a Drink Containing Alcohol: 2 to 3 times a week - Substance Use History Substance History: Active Abuse PMFSH - History History Provided By: Patient - Medical History Medical History: Medical History (Last Updated 06/24/18 @ 18:23 by Martin Paris DO) IV drug abuse Wound of left foot - Surgical History Surgical History: Surgical History (Last Reviewed 06/24/18 @ 15:57 by Fuentes Shell DO) Hx of cholecystectomy - Family History Family History: Family History (Last Updated 06/24/18 @ 18:23 by Martin Paris DO) Other Diabetes Hypertension - Tobacco History Second Hand Smoke Exposure: Yes Tobacco Use In Past 30 Days: Yes Smoking Status: Heavy tobacco smoker Tobacco Type: Cigarettes - Alcohol History How Often Do You Have a Drink Containing Alcohol: 2 to 3 times a week - Substance Use History Substance History: Active Abuse - Substance Use Type Heroin Status: Active Route Used: Intravenously Last Used: 06/10/18 Reason for Use: Get High - Travel History Recent Travel in the [place] Within the Last 8 Weeks: No Recent Travel Out of the Country Within the Last 8 Weeks: No - Immunization History Tetanus Immunization: Unsure Hx Influenza Vaccine This Season: No Medications and Allergies Allergies Allergy/AdvReac Type Severity Reaction Status Date / Time No Known Allergies Allergy Unverified 06/24/18 08:05 Home Medications Medication Instructions Recorded Confirmed Type gabapentin 300 mg PO BID 06/24/18 06/24/18 History Physical Exam Vital signs: Vital Signs 06/25/18 19:06 06/25/18 22:55 06/26/18 03:21 Temperature 98.5 F 99.1 F 98.8 F Pulse Rate 83 80 72 Respiratory Rate 18 16 18 Blood Pressure 135/85 127/65 121/70 Pulse Oximetry 100 100 100 06/26/18 08:00 Temperature 98.3 F Pulse Rate 78 Respiratory Rate 18 Blood Pressure 133/76 Pulse Oximetry 99 Intake & Output 06/25/18 06/26/18 06/26/18 18:59 06:59 18:59 Intake Total 565.5 / 565.5 100 / 100 Balance 565.5 / 565.5 100 / 100 Intake: IV 565.5 / 565.5 100 / 100 Ofirmev Inj 1,000 mg In 100 ml 100 / 100 @ 400 mls/hr IV.SIG Q8H [facility] Rx# :[id number] Zosyn 4.5 GM Premix 4.5 gm In 200 / 200 100 / 100 100 ml @ 200 mls/hr IV.SIG Q6H [facility] Rx#:[id number] Vancomycin Inj 1,250 MG In NS 265.5 / 265.5 Inj 250 ML @ 250 mls/hr IV.SIG Q12H [facility] Rx#:[id number] Other: # Voids 6 Narrative: No apparent anxiety moist mucous membranes PERRLA skin without rash respirations nonlabored moves all fours extremities to command digits warm well perfused Left dorsal hand with several centimeter raised area of fluctuance with moderate to severe surrounding erythema Full active range of motion Assessment and Plan - Assessment (1) Abscess of dorsum of left hand Code(s): L02.512 - Cutaneous abscess of left hand Status: Acute (2) Hx of intravenous drug use, in remission Code(s): Z87.898 - Personal history of other specified conditions Status: Acute - Plan 37-year-old female with left dorsal hand abscess Risks benefits and alternative treatments discussed All questions answered and the patient expressed understanding Patient elected to assume the risks of incision and drainage of the above abscess Informed consent obtained Well-tolerated Culture sent Agree with IV antibiotics Please call with questions
== END 2018-06-26 13:03 | disposition home or self-care (01) ==
LOC: NEDA 07:02 → NEPHCDU 07:02 → NEPC 07:02 → NEDA 17:36 → NEPHCDU 17:38
PROVIDERS: ADMIT Internal Medicine; ATTEND Internal Medicine
DX: L02.512 Cutaneous abscess of left hand; L03.114 Cellulitis of left upper limb; F17.210 Nicotine dependence, cigarettes, uncomplicated

== ENCOUNTER 2018-10-09 12:35 | Inpatient (IN) ==
--- NOTE | 2018-10-09 15:14 | ED ---
HPI General Chief complaint: Skin/Abscess/Foreign Body Stated complaint: skin complaint/ fever Time Seen by Provider: 10/09/18 14:57 Source: patient Mode of arrival: ambulatory Limitations: no limitations History of Present Illness HPI narrative: 37-year-old female complains of redness swelling and pain right breast. Patient states that the symptoms started several days ago. Patient states that the redness swelling and pain got worse for the past 2 days. Patient has history IV drug abuse. Patient states that she has been shooting up heroine. Patient states that she is up-to-date with TD booster. Patient states that she is on gabapentin for chronic pain. Patient status post tubal ligation. Patient denies any chance being . complaint: Reports abscess/boil Onset (ago): day(s) Tetanus Immunization: <5 Years Location: Reports chest Severity: moderate Severity scale (1-10): 7 Quality: Reports sharp Pain Consistency: constant Relieving factors: none Exacerbating factors: none Context: Reports IVDA Associated symptoms: Reports fever Treatments prior to arrival: Reports none Related Data Home Medications Medication Instructions Recorded Confirmed gabapentin 600 mg PO DAILY 10/09/18 10/09/18 Allergies Allergy/AdvReac Type Severity Reaction Status Date / Time No Known Allergies Allergy Verified 08/25/18 13:53 Review of Systems ROS: all other systems reviewed are negative PMFSH Medical History Medical History IV drug abuse (Acute) Tubal ligation status (Acute) Wound of left foot (Acute) Surgical History Surgical History Hx of cholecystectomy (Acute) Family History Family History Other Diabetes Hypertension Social History Social History Substance History: Active Abuse Second Hand Smoke Exposure: Yes Smoking Status: Former smoker Tobacco Type: Cigarettes How Often Do You Have a Drink Containing Alcohol: Never Recent Travel in [place] within the Last 8 Weeks: No Recent Out of Country Travel within the Last 8 Weeks: No Immunization History Tetanus Immunization: <5 Years Exam Narrative Exam Narrative: GENERAL: Well-nourished, well-developed patient. SKIN: Focused skin assessment warm/dry. HEAD: Normocephalic. EYES: No scleral icterus. No injection or drainage. NECK: Supple, trachea midline. No JVD or lymphadenopathy. CARDIOVASCULAR: Regular rate and rhythm without murmurs, gallops, or rubs. RESPIRATORY: Breath sounds equal bilaterally. No accessory muscle use. GASTROINTESTINAL: Abdomen soft, non-tender, nondistended. MUSCULOSKELETAL: No cyanosis, or edema. BACK: Nontender without obvious deformity. No CVA tenderness. Examination of the right breast shows redness swelling diffuse over the whole breast. Patient has a large pustule lesion around the areolar area of the right breast. Procedures Abscess I/D Site: chest Side (if applicable): right Sedation/analgesia: none Anesthetic used: lidocaine 1% Technique: incised with #11 blade Irrigation: No Packing used?: none Course Initial Documented Vital Signs Temperature 101.0 F H 10/09/18 13:19 Pulse Rate 106 H 10/09/18 13:19 Respiratory Rate 22 10/09/18 13:19 Blood Pressure 145/62 H 10/09/18 13:19 Pulse Oximetry 97 10/09/18 13:19 Last Documented Vital Signs Temperature 97.7 F 10/09/18 16:00 Pulse Rate 106 H 10/09/18 13:19 Respiratory Rate 22 10/09/18 13:19 Blood Pressure 145/62 H 10/09/18 13:19 Pulse Oximetry 97 10/09/18 13:19 Medical Decision Making MDM Narrative Medical decision making narrative: 37-year-old female with redness swelling tenderness right breast and pustule lesion on the right breast. I&D was done. Culture obtained. Vancomycin 1 g IV given. Zosyn 3.375 g IV given. Normal saline solution 125 cc an hour. Medical Screen Exam Complete: Yes Emergency Medical Condition: Yes Lab Data Lab results reviewed: Yes I reviewed the patient's lab results. Result diagrams: 10/09/18 15:23 10/09/18 15:23 Lab Results 10/09/18 10/09/18 10/09/18 Range/Units 15:23 15:23 15:23 WBC 14.6 H (4.0-11.0) th/mm3 RBC 4.30 (4.00-5.30) mil/mm3 Hgb 13.3 (11.6-15.3) gm/dL Hct 37.0 (35.0-46.0) % MCV 85.9 (80.0-100.0) fL MCH 30.9 (27.0-34.0) pg MCHC 36.0 (32.0-36.0) % RDW 12.6 (11.6-17.2) % Plt Count 188 (150-450) th/mm3 MPV 7.3 (7.0-11.0) fL Prelim Diff (Auto) Slide review pending Neut % (Auto) 89.5 H (16.0-70.0) % Lymph % (Auto) 6.3 L (9.0-44.0) % [place] % (Auto) 3.6 (0.0-8.0) % Eos % (Auto) 0.4 (0.0-4.0) % Baso % (Auto) 0.2 (0.0-2.0) % Neut # (Auto) 13.1 H (1.8-7.7) th/mm3 Lymph # (Auto) 0.9 L (1.0-4.8) th/mm3 [place] # (Auto) 0.5 (0.0-0.9) th/mm3 Eos # (Auto) 0.1 (0.0-0.4) th/mm3 Baso # (Auto) 0.0 (0.0-0.2) th/mm3 WBC Differential . Diff Scan Auto diff confirmed Differential Comment . Sodium 136 (136-145) meq/L Potassium 3.5 (3.5-5.1) meq/L Chloride 99 (98-107) meq/L Carbon Dioxide 29.3 (21.0-32.0) meq/L Anion Gap 8 (5-15) meq/L BUN 10 (7-18) mg/dL Creatinine 1.02 H (0.50-1.00) mg/dL Estimated GFR 61 L (>89) mL/min Random Glucose 113 H (74-106) mg/dL Lactic Acid 1.1 (0.4-2.0) mmol/L Calcium 8.6 (8.5-10.1) mg/dL Discharge Plan Discharge Disposition Patient Disposition: 30 Still Patient Discharge Details Diagnosis: Abscess of breast, right, Acute mastitis of right breast Physicians Team ED Provider: Raj Seymour Primary Care Provider: UNKNOWN, Rxs /Orders / Referrals /Forms Prescriptions: No Action gabapentin 600 mg Tablet 600 mg PO DAILY RF: 0 Status ED Status: Admitted Patient
[2018-10-09] MEDS ORDERED: Ketorolac Inj 30 MG/ML (IVP) Vial IV.PUSH ONE (15:16)
[2018-10-09 15:42] LABS: Baso % (Auto) 0.2 % (0.0-2.0); Eos # (Auto) 0.1 th/mm3 (0.0-0.4); Eos % (Auto) 0.4 % (0.0-4.0); Hemoglobin 13.3 gm/dL (11.6-15.3); Lymph # (Auto) 0.9 th/mm3 (1.0-4.8); Lymph % (Auto) 6.3 % (9.0-44.0); Mean Corpuscular Hemoglobin 30.9 pg (27.0-34.0); Mean Corpuscular Volume 85.9 fL (80.0-100.0); Mean Platelet Volume 7.3 fL (7.0-11.0); Mono # (Auto) 0.5 th/mm3 (0.0-0.9); Mono % (Auto) 3.6 % (0.0-8.0); Neut # (Auto) 13.1 th/mm3 (1.8-7.7); Neut % (Auto) 89.5 % (16.0-70.0); Platelet Count 188 th/mm3 (150-450); Red Cell Distribution Width 12.6 % (11.6-17.2); White Blood Count 14.6 th/mm3 (4.0-11.0)
[2018-10-09 16:03] LABS: Calcium 8.6 mg/dL (8.5-10.1); Carbon Dioxide 29.3 meq/L (21.0-32.0); Potassium 3.5 meq/L (3.5-5.1)
[2018-10-09] MEDS ORDERED: Vancomycin Inj 1,000 MG in Sodium Chlor 0.9% Inj 250 ML IV.SIG ONE (16:29)
[2018-10-09] MEDS ORDERED: Sod Chloride 0.9% Inj 1,000 ML IV.CONT SCH (16:30)
[2018-10-09] MEDS ORDERED: Piperacil/Tazo 3.375 GM Premix 50 ML IV.SIG ONE (16:43)
[2018-10-09] MEDS ORDERED: Bisacodyl 10 MG Supp RECTAL PRN (17:46)
[2018-10-09] MEDS ORDERED: Acetaminophen 325 MG Tablet PO PRN (17:46)
[2018-10-09] MEDS ORDERED: Naloxone Inj 0.4 MG/ML Vial IV.PUSH PRN (18:07)
--- NOTE | 2018-10-09 18:19 | P.HP ---
History of Present Illness Primary Care Physician: UNKNOWN Chief Complaint: Right breast pain History of Present Illness: 37 years old female with history of IVDU, presented to the ED for evaluation of right breast pain times 2-day duration rated over 6 in intensity. Patient states about 2-3 days ago she injected to her right nipple some opioid , mainly heroin. Then she noted breast pain, hardening and swelling of the nipple associated with erythema. She also endorses subjective fever. Patient states, over the past 20 years she has been battling with addiction. She was hospitalized for abscesses secondary to IV drug use. She currently denies any . She smokes 1 pack/day and denies any alcohol use. She denies any prostitution. She has no GI bleed, chest pain or shortness of breath. Inpatient Certification: I certify that the inpatient services were ordered in accordance with Medicare regulations governing the order. This includes certification that hospital inpatient services are reasonable and necessary and in the case of services not specified as inpatient-only under 42 CFR 419.22(n), that they are appropriately provided as inpatient services in accordance to with the 2-midnight benchmark under 43 CFR 412.3(e) Estimated Total Length of Stay (Days): 2 Plans for Post Hospital Care: Not yet determined Review of Systems All other systems reviewed negative except as stated in HPI PMFSH - History History Provided By: Patient - Medical History Medical History: Medical History (Last Reviewed 10/09/18 @ 15:12 by Raj Seymour MD) IV drug abuse Tubal ligation status Wound of left foot - Surgical History Surgical History: Surgical History (Last Reviewed 10/09/18 @ 15:12 by Raj Seymour MD) Hx of cholecystectomy - Family History Family History: Family History (Last Reviewed 10/09/18 @ 15:12 by Raj Seymour MD) Other Diabetes Hypertension - Tobacco History Second Hand Smoke Exposure: Yes Smoking Status: Former smoker Tobacco Type: Cigarettes - Alcohol History How Often Do You Have a Drink Containing Alcohol: Never - Substance Use History Substance History: Active Abuse - Travel History Recent Travel in the [place] Within the Last 8 Weeks: No Recent Travel Out of the Country Within the Last 8 Weeks: No - Immunization History Tetanus Immunization: <5 Years Medications and Allergies Active Medications: Active Medications Acetaminophen (Tylenol) 650 mg PO Q4H PRN PRN Reason: Temp > 100.4 Al Hydroxide/Mg Hydroxide (Milk Of Magnesia Liq) 30 ml PO Q12H PRN PRN Reason: Mild Constipation Bisacodyl (Dulcolax Supp) 10 mg RECTAL DAILY PRN PRN Reason: SEVERE CONSITIPATION Vancomycin HCl 1,250 mg/ (Sodium Chloride) 262.5 mls @ 250 mls/hr IV.SIG Q24H [facility] Piperacillin/Tazobactam/Dextrose (Zosyn 3.375 Gm Premix) 50 mls @ 100 mls/hr IV.SIG Q8H [facility] Ibuprofen (Motrin) 400 mg PO Q6HR PRN PRN Reason: PAIN SCALE 1 TO 2 Lactulose (Lactulose Liq) 30 ml PO DAILY PRN PRN Reason: SEVERE CONSITIPATION Naloxone HCl (Narcan Inj) 0.4 mg IV.PUSH UNSCH PRN PRN Reason: SEE LABEL COMMENTS Nicotine (Habitrol 21 Mg Patch.24 Hr) 1 patch T-DERMAL DAILY [facility] Ondansetron HCl (Zofran Inj) 4 mg IV.PUSH Q6H PRN PRN Reason: NAUSEA OR VOMITING Patch Removal (Remove Old Patch) 1 each T-DERMAL HS [facility] Senna/Docusate Sodium (Joan-Colace) 1 tab PO BID [facility] Sennosides (Senokot) 17.2 mg PO Q12H PRN PRN Reason: Moderate Constipation Allergies Allergy/AdvReac Type Severity Reaction Status Date / Time No Known Allergies Allergy Verified 08/25/18 13:53 Home Medications Medication Instructions Recorded Confirmed Type gabapentin 600 mg PO DAILY 10/09/18 10/09/18 History Exam Vital signs: Vital Signs 10/09/18 13:19 10/09/18 16:00 10/09/18 17:26 Temperature 101.0 F H 97.7 F Pulse Rate 106 H 72 Respiratory Rate 22 18 Blood Pressure 145/62 H 108/72 Pulse Oximetry 97 Intake & Output 10/08/18 10/09/18 10/09/18 18:59 06:59 18:59 Intake Total 700 / 700 Balance 700 / 700 Weight 58.967 kg Intake: IV 700 / 700 NS Inj 1,000 ML @ 125 mls/hr IV 400 / 400 .CONT .Q8H [facility] Rx#:[id number] Zosyn 3.375 GM Premix 50 ML @ 50 / 50 100 mls/hr IV.SIG ONCE ONE Rx#: [id number] Vancomycin Inj 1,000 MG In NS 250 / 250 Inj 250 ML @ 250 mls/hr IV.SIG ONCE ONE Rx#:[id number] Results - Labs CBC & Chem 7: 10/09/18 15:23 10/09/18 15:23 Labs: Laboratory Results - last 24 hr 10/09/18 10/09/18 10/09/18 15:23 15:23 15:23 WBC 14.6 H RBC 4.30 Hgb 13.3 Hct 37.0 MCV 85.9 MCH 30.9 MCHC 36.0 RDW 12.6 Plt Count 188 MPV 7.3 Prelim Diff (Auto) Slide review pending Neut % (Auto) 89.5 H Lymph % (Auto) 6.3 L [place] % (Auto) 3.6 Eos % (Auto) 0.4 Baso % (Auto) 0.2 Neut # (Auto) 13.1 H Lymph # (Auto) 0.9 L [place] # (Auto) 0.5 Eos # (Auto) 0.1 Baso # (Auto) 0.0 WBC Differential . Diff Scan Auto diff confirmed Differential Comment . Sodium 136 Potassium 3.5 Chloride 99 Carbon Dioxide 29.3 Anion Gap 8 BUN 10 Creatinine 1.02 H Estimated GFR 61 L Random Glucose 113 H Lactic Acid 1.1 Calcium 8.6 Caprini VTE Risk Assessment Caprini VTE Risk Assessment: No/Low Risk (score <= 1) Caprini Risk Assessment Model: Point Value = 1 Point Value = 2 Point Value = 3 Point Value = 5 Age 41-60 Minor surgery BMI > 25 kg/m2 Swollen legs Varicose veins or History of unexplained or recurrent spontaneous Oral contraceptives or hormone replacement Sepsis (< 1 month) Serious lung disease, including pneumonia (< 1 month) Abnormal pulmonary function Acute myocardial infarction Congestive heart failure (< 1 month) History of inflammatory bowel disease Medical patient at bed rest Age 61-74 Arthroscopic surgery Major open surgery (> 45 min) Laparoscopic surgery (> 45 min) Malignancy Confined to bed (> 72 hours) Immobilizing plaster cast Central venous access Age >= 75 History of VTE Family history of VTE Factor V Leiden Prothrombin [id number] Lupus anticoagulant Anticardiolipin antibodies Elevated serum homocysteine Heparin-induced thrombocytopenia Other congenital or acquired thrombophilia Stroke (< 1 month) Elective arthroplasty Hip, pelvis, or leg fracture Acute spinal cord injury (< 1 month) Prophylaxis Regimen: Total Risk Factor Score Risk Level Prophylaxis Regimen 0-1 Low Early ambulation 2 Moderate Order ONE of the following: *Sequential Compression Device (SCD) *Heparin 5000 units SQ BID 3-4 Higher Order ONE of the following medications: *Heparin 5000 units SQ TID *Enoxaparin/Lovenox 40 mg SQ daily (WT < 150 kg, CrCl > 30 mL/min) *Enoxaparin/Lovenox 30 mg SQ daily (WT < 150 kg, CrCl > 10-29 mL/min) *Enoxaparin/Lovenox 30 mg SQ BID (WT < 150 kg, CrCl > 30 mL/min) AND/OR *Sequential Compression Device (SCD) 5 or more Highest Order ONE of the following medications: *Heparin 5000 units SQ TID (Preferred with Epidurals) *Enoxaparin/Lovenox 40 mg SQ daily (WT < 150 kg, CrCl > 30 mL/min) *Enoxaparin/Lovenox 30 mg SQ daily (WT < 150 kg, CrCl > 10-29 mL/min) *Enoxaparin/Lovenox 30 mg SQ BID (WT < 150 kg, CrCl > 30 mL/min) AND *Sequential Compression Device (SCD) Assessment and Plan - Plan 37-year-old female with Sepsis: Elevated WBC over 10,000, tachycardia with HR>100; source from right breast abscess. Normal lactic acid Status post IV antibiotics including Zosyn and vancomycin x1 in the ED, continue antibiotics pending culture reports Check 2D echo secondary to patient history of IV drug use to rule out endocarditis Right breast abscess Post I&D in ED pending culture report However will check breast ultrasound and consult general surgery as needed pain he report for evaluation for possible I&D Currently on Zosyn and vancomycin pending culture and wound abscess reports Infectious disease consultation as needed Leukocytosis From above and treatment as an above History of IVDU Extensively counseled against 2D echo pending to rule out endocarditis Check UDS,ESR, CRP as well as LFTs (rule out transaminitis secondary from Liver disease from Hepatitis infection) Tobacco abuse Tobacco counseling cessation provided Start nicotine patch DVT prophylaxis: SCDs
[2018-10-09] MEDS: Senna/Docusate Sodium 8.6/50 MG Tablet PO SCH (21:26)
[2018-10-09] MEDS: Ibuprofen 400 MG Tablet PO PRN (22:07)
[2018-10-10] MEDS: Piperacil/Tazo 3.375 GM Premix 50 ML IV.SIG SCH ×3 (01:27→17:39)
[2018-10-10 03:42] LABS: Amphetamine Screen,Urine Neg (Neg); Barbiturate Screen,Urine Neg (Neg); Cannabinoid Screen,Urine Pos (Neg); Cocaine Screen,Urine Pos (Neg)
[2018-10-10 03:43] LABS: Opiate Screen,Urine Neg (Neg)
[2018-10-10] MEDS: Ibuprofen 400 MG Tablet PO PRN ×2 (05:04→09:34)
[2018-10-10 06:14] LABS: Baso # (Auto) 0.1 th/mm3 (0.0-0.2); Baso % (Auto) 0.6 % (0.0-2.0); Eos # (Auto) 0.2 th/mm3 (0.0-0.4); Eos % (Auto) 2.2 % (0.0-4.0); Hematocrit 36.9 % (35.0-46.0); Hemoglobin 12.9 gm/dL (11.6-15.3); Lymph # (Auto) 2.1 th/mm3 (1.0-4.8); Lymph % (Auto) 20.9 % (9.0-44.0); Mean Corpuscular HGB Conc 35.1 % (32.0-36.0); Mean Corpuscular Hemoglobin 30.5 pg (27.0-34.0); Mean Corpuscular Volume 86.9 fL (80.0-100.0); Mean Platelet Volume 7.6 fL (7.0-11.0); Mono # (Auto) 0.8 th/mm3 (0.0-0.9); Mono % (Auto) 7.5 % (0.0-8.0); Neut # (Auto) 6.9 th/mm3 (1.8-7.7); Neut % (Auto) 68.8 % (16.0-70.0); Platelet Count 197 th/mm3 (150-450); Red Blood Count 4.24 mil/mm3 (4.00-5.30); Red Cell Distribution Width 12.5 % (11.6-17.2)
[2018-10-10 06:40] LABS: Alanine Aminotransferase 15 U/L (10-53); Albumin 2.8 g/dL (3.4-5.0); Alkaline Phosphatase 74 U/L (45-117); Anion Gap 7 meq/L (5-15); Aspartate Aminotransferase 8 U/L (15-37); Blood Urea Nitrogen 8 mg/dL (7-18); Calcium 8.5 mg/dL (8.5-10.1); Carbon Dioxide 31.7 meq/L (21.0-32.0); Chloride 105 meq/L (98-107); Glomerular Filtration Rate 64 mL/min (>89); Glucose,Random 108 mg/dL (74-106); Potassium 4.4 meq/L (3.5-5.1); Sodium 144 meq/L (136-145); Total Protein 6.8 g/dL (6.4-8.2)
--- NOTE | 2018-10-10 08:58 | US ---
EXAM DATE: 10/10/2018 8:51 AM EST AGE/SEX: 37 years / Female INDICATIONS: IV drug use, injected right nipple. Right breast pain. CLINICAL DATA: This is the patient's initial encounter. Patient reports that signs and symptoms have been present for 2 days and indicates a pain score of 6/10. MEDICAL/SURGICAL HISTORY: . IV drug use. Tubal ligation. Cholecystectomy. COMPARISON: No prior exams available for comparison. TECHNIQUE: Real-time ultrasound examination was performed using a high-frequency transducer. Conven tional and compound scanning techniques were used. FINDINGS: The examination demonstrates a large area of indurated, hyperemic soft tissue in the retroareolar reg ion of the right breast at approximately the 10-11:00 position. This is beneath the area of the previ ous incision. This appears to be predominantly phlegmon however, there are some small pockets of flui d seen within the indurated soft tissues suggesting abscess. CONCLUSION: 1. Extensive hyperemic, indurated tissue as described above concerning for residual abscess. This ap pears to be complex fluid with predominantly phlegmon. Electronically signed by: Yg Sifuentes MD 10/10/2018 8:57 AM EST
[2018-10-10] MEDS ORDERED: Vancomycin Inj 1,250 MG in Sodium Chlor 0.9% Inj 250 ML IV.SIG SCH (09:00)
[2018-10-10] MEDS: Gabapentin 300 MG Capsule PO SCH (09:34)
[2018-10-10] MEDS: Senna/Docusate Sodium 8.6/50 MG Tablet PO SCH ×2 (09:35→20:10)
[2018-10-10] MEDS ORDERED: Sodium Chloride 0.9% 2 ML Flush PRN IV.FLUSH (09:49)
--- NOTE | 2018-10-10 11:56 | ECHRPT ---
Indication: SEPSIS CONCLUSIONS The left ventricular systolic function is hyperdynamic with an estimated ejection fraction in the ra nge of 65- 70%. Normal left ventricular size. Wall thickness is normal. No regional wall motion abnormalities are present. Mild thickening of the mitral valve leaflets. Mild mitral valve regurgitation. There is trace tricuspid valve regurgitation. The estimated pulmonary arterial pressure is 32 mmHg. BP: / HR: Rhythm: Sinus MEASUREMENTS (Male / Female) Normal Values Technical Quality:Good 2D ECHO LV Diastolic Diameter PLAX 4.1 cm 4.2 - 5.9 / 3.9 - 5.3 cm LV Systolic Diameter PLAX 2.7 cm IVS Diastolic Thickness 0.9 cm 0.6 - 1.0 / 0.6 - 0.9 cm LVPW Diastolic Thickness 1.0 cm 0.6 - 1.0 / 0.6 - 0.9 cm LV Relative Wall Thickness 0.5 LVOT Diameter 1.7 cm LA Systolic Diameter LX 3.5 cm 3.0 - 4.0 / 2.7 - 3.8 cm M-MODE Aortic Root Diameter MM 1.2 cm LA Systolic Diameter MM 3.4 cm LA Ao Ratio MM 2.8 AV Cusp Separation MM 1.4 cm DOPPLER AV Peak Velocity 147.0 cm/s AV Peak Gradient 8.6 mmHg LVOT Peak Velocity 120.0 cm/s LVOT Peak Gradient 5.8 mmHg AV Area Cont Eq pk 1.9 cm MV Area PHT 3.8 cm Mitral E Point Velocity 98.7 cm/s Mitral A Point Velocity 69.6 cm/s Mitral E to A Ratio 1.4 LV E' Lateral Velocity 10.1 cm/s Mitral E to LV E' Lateral Ratio 9.8 LV E' Septal Velocity 6.5 cm/s Mitral E to LV E' Septal Ratio 15.1 TR Peak Velocity 232.0 cm/s TR Peak Gradient 21.5 mmHg Right Atrial Pressure 10.0 mmHg Pulmonary Artery Systolic Pressu 31.5 mmHg Right Ventricular Systolic Press 31.5 mmHg FINDINGS LEFT VENTRICLE The left ventricular systolic function is hyperdynamic with an estimated ejection fraction in the ra nge of 65- 70%. Normal left ventricular size. Wall thickness is normal. No regional wall motion abnormalities are present. RIGHT VENTRICLE Normal right ventricular size and systolic function. LEFT ATRIUM The left atrial size is normal. RIGHT ATRIUM The right atrial size is normal. ATRIAL SEPTUM Normal atrial septal thickness without atrial level shunting by limited color doppler interrogation. AORTA The aortic root and proximal ascending aorta are normal in size on limited imaging. MITRAL VALVE Mild thickening of the mitral valve leaflets. Mild mitral valve regurgitation. AORTIC VALVE Trileaflet aortic valve. No aortic valve stenosis or regurgitation. TRICUSPID VALVE Structurally normal tricuspid valve. There is trace tricuspid valve regurgitation. The estimated pulmonary arterial pressure is 31.5 mmHg. PULMONARY VALVE No pulmonary valve regurgitation or stenosis. VESSELS The inferior vena cava is normal in size. PERICARDIUM No pericardial effusion. Lorin Houser MD, FACC (Electronically Signed) Final Date:10 October 2018 11:55
--- NOTE | 2018-10-10 12:49 | P.PN ---
Subjective Interval history: Follow-up right breast abscess/sepsis October 10, 2018-patient seen and examined, complains of inadequate pain control to her right breast otherwise afebrile. Physical Exam Vital signs: Vital Signs 10/09/18 13:19 10/09/18 16:00 10/09/18 17:26 Temperature 101.0 F H 97.7 F Pulse Rate 106 H 72 Respiratory Rate 22 18 Blood Pressure 145/62 H 108/72 Pulse Oximetry 97 10/09/18 20:00 10/09/18 22:37 10/10/18 00:00 Temperature 97.5 F L 98 F Pulse Rate 74 66 Respiratory Rate 18 18 18 Blood Pressure 120/58 L 116/70 Pulse Oximetry 99 98 10/10/18 05:34 10/10/18 08:00 10/10/18 12:00 Temperature 97.4 F L 99.2 F Pulse Rate 66 76 Respiratory Rate 18 18 Blood Pressure 98/54 L 105/58 L Pulse Oximetry 97 98 Intake & Output 10/09/18 10/10/18 10/10/18 18:59 06:59 18:59 Intake Total 700 / 700 1130 / 1130 50 / 50 Balance 700 / 700 1130 / 1130 50 / 50 Weight 58.967 kg 68.9 kg Intake: IV 700 / 700 650 / 650 50 / 50 NS Inj 1,000 ML @ 125 mls/hr IV 400 / 400 600 / 600 .CONT .Q8H [facility] Rx#:[id number] Zosyn 3.375 GM Premix 50 ML @ 50 / 50 50 / 50 50 / 50 100 mls/hr IV.SIG Q8H [facility] Rx#: [id number] Vancomycin Inj 1,000 MG In NS 250 / 250 Inj 250 ML @ 250 mls/hr IV.SIG ONCE ONE Rx#:[id number] Oral 480 / 480 Other: # Voids 2 Weight On Admission 58.967 kg Narrative: GENERAL: NAD SKIN: Warm and dry. HEAD: Normocephalic. EYES: No scleral icterus. No injection or drainage. NECK: Supple, trachea midline. No JVD or lymphadenopathy. CARDIOVASCULAR: Regular rate and rhythm without murmurs, gallops, or rubs. RESPIRATORY: Breath sounds equal bilaterally. No accessory muscle use. GASTROINTESTINAL: Abdomen soft, non-tender, nondistended. MUSCULOSKELETAL: No cyanosis, or edema. BACK: Nontender without obvious deformity. No CVA tenderness. Results - Labs CBC & Chem 7: 10/10/18 05:12 10/10/18 05:12 Laboratory Results - last 24 hr 10/09/18 10/09/18 10/09/18 15:23 15:23 15:23 WBC 14.6 H RBC 4.30 Hgb 13.3 Hct 37.0 MCV 85.9 MCH 30.9 MCHC 36.0 RDW 12.6 Plt Count 188 MPV 7.3 Prelim Diff (Auto) Slide review pending Neut % (Auto) 89.5 H Lymph % (Auto) 6.3 L [place] % (Auto) 3.6 Eos % (Auto) 0.4 Baso % (Auto) 0.2 Neut # (Auto) 13.1 H Lymph # (Auto) 0.9 L [place] # (Auto) 0.5 Eos # (Auto) 0.1 Baso # (Auto) 0.0 WBC Differential . Diff Scan Auto diff confirmed Differential Comment . ESR Sodium 136 Potassium 3.5 Chloride 99 Carbon Dioxide 29.3 Anion Gap 8 BUN 10 Creatinine 1.02 H Estimated GFR 61 L Random Glucose 113 H Lactic Acid 1.1 Calcium 8.6 Total Bilirubin AST ALT Alkaline Phosphatase C-Reactive Protein Total Protein Albumin Urine Opiates Screen Ur Barbiturates Screen Ur Amphetamines Screen U Benzodiazepines Scrn Urine Cocaine Screen U Cannabinoids Screen 10/09/18 10/09/18 10/10/18 15:23 15:23 02:00 WBC RBC Hgb Hct MCV MCH MCHC RDW Plt Count MPV Prelim Diff (Auto) Neut % (Auto) Lymph % (Auto) [place] % (Auto) Eos % (Auto) Baso % (Auto) Neut # (Auto) Lymph # (Auto) [place] # (Auto) Eos # (Auto) Baso # (Auto) WBC Differential Diff Scan Differential Comment ESR 45 H Sodium Potassium Chloride Carbon Dioxide Anion Gap BUN Creatinine Estimated GFR Random Glucose Lactic Acid Calcium Total Bilirubin AST ALT Alkaline Phosphatase C-Reactive Protein 14.00 H Total Protein Albumin Urine Opiates Screen Neg Ur Barbiturates Screen Neg Ur Amphetamines Screen Neg U Benzodiazepines Scrn Neg Urine Cocaine Screen Pos H U Cannabinoids Screen Pos H 10/10/18 10/10/18 05:12 05:12 WBC 10.0 RBC 4.24 Hgb 12.9 Hct 36.9 MCV 86.9 MCH 30.5 MCHC 35.1 RDW 12.5 Plt Count 197 MPV 7.6 Prelim Diff (Auto) Neut % (Auto) 68.8 Lymph % (Auto) 20.9 [place] % (Auto) 7.5 Eos % (Auto) 2.2 Baso % (Auto) 0.6 Neut # (Auto) 6.9 Lymph # (Auto) 2.1 [place] # (Auto) 0.8 Eos # (Auto) 0.2 Baso # (Auto) 0.1 WBC Differential . Diff Scan Differential Comment Auto diff final ESR Sodium 144 Potassium 4.4 D Chloride 105 Carbon Dioxide 31.7 Anion Gap 7 BUN 8 Creatinine 0.98 Estimated GFR 64 L Random Glucose 108 H Lactic Acid Calcium 8.5 Total Bilirubin 0.5 AST 8 L ALT 15 Alkaline Phosphatase 74 C-Reactive Protein Total Protein 6.8 Albumin 2.8 L Urine Opiates Screen Ur Barbiturates Screen Ur Amphetamines Screen U Benzodiazepines Scrn Urine Cocaine Screen U Cannabinoids Screen Microbiology 10/09/18 15:23 Abscess - Breast Gram Stain - Final 10/09/18 15:23 Blood - Peripheral Aerobic Blood Culture - Preliminary No growth in 1 day 10/09/18 15:23 Blood - Peripheral Anaerobic Blood Culture - Preliminary No growth in 1 day 10/09/18 15:23 Blood - Peripheral Aerobic Blood Culture - Preliminary No growth in 1 day 10/09/18 15:23 Blood - Peripheral Anaerobic Blood Culture - Preliminary No growth in 1 day - Imaging Impressions Breast Ultrasound 10/10/18 08:00 CONCLUSION: 1. Extensive hyperemic, indurated tissue as described above concerning for residual abscess. This appears to be complex fluid with predominantly phlegmon. Assessment and Plan - Plan 37-year-old female with Sepsis: Resolved Continue Zosyn and vancomycin pending culture reports Right breast abscess status Post I&D in ED pending culture report breast ultrasound with finding of Extensive hyperemic, indurated tissue as described above concerning for residual abscess Consult general surgery Currently on Zosyn and vancomycin pending culture and wound abscess reports Infectious disease consultation as needed Leukocytosis From above and treatment as an above History of IVDU Extensively counseled against 2D echo without any vegetation UDS positive for cocaine Tobacco abuse Tobacco counseling cessation provided Continue nicotine patch DVT prophylaxis: SCDs
--- NOTE | 2018-10-10 16:47 | P.CONGS ---
[facility] Gen Surgery Consult Note Consult date: 10/10/18 Reason for consult: other (RIGHT breast abscess) Requesting physician: Caio Padilla Narrative: CONSULTATION NOTE FOR SURGICAL ATTENDING, DR. AMANDEEP CERON This is a 37 year old female who is a known IVDA who injected heroin into her RIGHT breast about a week ago. She had several days of pressure type pain in her RIGHT breast with redness. She came to the ED where they did an bedside I& D. A culture was obtained. The patient was started on IV antibiotics but she is photographer still with redness. An US of the RIGHT breast was done which shows a complex fluid collection with predominately phlegmon changes. Her WBC is now normal. Her drug toxicity panel is positive for cocaine and cannabis. Of note , the patient does state she has tried to get help in the past with her drug problems and states she "needs better friends." A General Surgery consultation has been requested. Review of Systems All other systems reviewed negative except as stated in [facility] PMFSH - History History Provided By: Patient - Medical History Medical History: Medical History (Last Reviewed 10/10/18 @ 19:45 by Amandeep Ceron MD) IV drug abuse Tubal ligation status Wound of left foot - Surgical History Surgical History: Surgical History (Last Reviewed 10/10/18 @ 19:45 by Amandeep Ceron MD) Hx of cholecystectomy - Family History Family History: Family History (Last Reviewed 10/10/18 @ 19:45 by Amandeep Ceron MD) Other Diabetes Hypertension - Social History I have reviewed the patient's Social History: Yes - Tobacco History Second Hand Smoke Exposure: Yes Tobacco Use In Past 30 Days: Yes Smoking Status: Current every day smoker Tobacco Type: Cigarettes - Alcohol History How Often Do You Have a Drink Containing Alcohol: Monthly or less - Substance Use History Substance History: Active Abuse - Travel History Recent Travel in the [place] Within the Last 8 Weeks: No Recent Travel Out of the Country Within the Last 8 Weeks: No - Immunization History Tetanus Immunization: <5 Years Hx Influenza Vaccine This Season: No Medications and Allergies Allergies Allergy/AdvReac Type Severity Reaction Status Date / Time No Known Allergies Allergy Verified 08/25/18 13:53 Home Medications Medication Instructions Recorded Confirmed Type gabapentin 600 mg PO DAILY 10/09/18 10/09/18 History Active Medications: Active Medications Acetaminophen (Tylenol) 650 mg PO Q4H PRN PRN Reason: Temp > 100.4 Al Hydroxide/Mg Hydroxide (Milk Of Magnesia Liq) 30 ml PO Q12H PRN PRN Reason: Mild Constipation Bisacodyl (Dulcolax Supp) 10 mg RECTAL DAILY PRN PRN Reason: SEVERE CONSITIPATION Gabapentin (Neurontin) 600 mg PO DAILY [facility] Last Admin: 10/10/18 09:34 Dose: 600 mg Piperacillin/Tazobactam/Dextrose (Zosyn 3.375 Gm Premix) 50 mls @ 100 mls/hr IV.SIG Q8H [facility] Last Infusion: 10/10/18 10:00 Dose: Infused Vancomycin HCl 1,250 mg/ (Sodium Chloride) 262.5 mls @ 250 mls/hr IV.SIG Q24H [facility] Ibuprofen (Motrin) 400 mg PO Q6HR PRN PRN Reason: PAIN SCALE 1 TO 2 Last Admin: 10/10/18 09:34 Dose: 400 mg Lactulose (Lactulose Liq) 30 ml PO DAILY PRN PRN Reason: SEVERE CONSITIPATION Naloxone HCl (Narcan Inj) 0.4 mg IV.PUSH UNSCH PRN PRN Reason: SEE LABEL COMMENTS Nicotine (Habitrol 21 Mg Patch.24 Hr) 1 patch T-DERMAL DAILY [facility] Last Admin: 10/10/18 09:34 Dose: 1 patch Ondansetron HCl (Zofran Inj) 4 mg IV.PUSH Q6H PRN PRN Reason: NAUSEA OR VOMITING Patch Removal (Remove Old Patch) 1 each T-DERMAL HS [facility] Last Admin: 10/09/18 21:27 Dose: Not Given Senna/Docusate Sodium (Joan-Colace) 1 tab PO BID [facility] Last Admin: 10/10/18 09:35 Dose: Not Given Sennosides (Senokot) 17.2 mg PO Q12H PRN PRN Reason: Moderate Constipation Sodium Chloride (Ns Flush) 2 ml IV.FLUSH BID [facility] Sodium Chloride (Ns Flush) 2 ml IV.FLUSH PRN PRN PRN Reason: FLUSH AFTER USING IV ACCESS Tramadol HCl (Ultram) 50 mg PO Q6H PRN PRN Reason: PAIN SCALE 6 TO 10 Last Admin: 10/10/18 13:15 Dose: 50 mg Exam Vital signs: Vital Signs 10/09/18 17:26 10/09/18 20:00 10/09/18 22:37 Temperature 97.5 F L Pulse Rate 72 74 Respiratory Rate 18 18 18 Blood Pressure 108/72 120/58 L Pulse Oximetry 99 10/10/18 00:00 10/10/18 05:34 10/10/18 08:00 Temperature 98 F 97.4 F L Pulse Rate 66 66 Respiratory Rate 18 18 18 Blood Pressure 116/70 98/54 L Pulse Oximetry 98 97 10/10/18 12:00 Temperature 99.2 F Pulse Rate 76 Respiratory Rate 18 Blood Pressure 105/58 L Pulse Oximetry 98 Intake & Output 10/09/18 10/10/18 10/10/18 18:59 06:59 18:59 Intake Total 700 / 700 1130 / 1130 50 / 50 Balance 700 / 700 1130 / 1130 50 / 50 Weight 58.967 kg 68.9 kg Intake: IV 700 / 700 650 / 650 50 / 50 NS Inj 1,000 ML @ 125 mls/hr IV 400 / 400 600 / 600 .CONT .Q8H [facility] Rx#:[id number] Zosyn 3.375 GM Premix 50 ML @ 50 / 50 50 / 50 50 / 50 100 mls/hr IV.SIG Q8H [facility] Rx#: [id number] Vancomycin Inj 1,000 MG In NS 250 / 250 Inj 250 ML @ 250 mls/hr IV.SIG ONCE ONE Rx#:[id number] Oral 480 / 480 Other: # Voids 2 Weight On Admission 58.967 kg Narrative: GENERAL: 37 year old female resting in bed in no acute distress. SKIN: RIGHT breast--- just superior of the areolar the patient has an area of induration and fluid collection which is draining purulent drainage through a very small hole; her breast is red and tender throughout. She has several areas on her BUE which appear to be healing scabs---none of which looks infected. HEAD: Atraumatic. Normocephalic. EYES: Pupils equal and round. No scleral icterus. No injection or drainage. ENT: No nasal bleeding or discharge. Mucous membranes pink and moist. NECK: Trachea midline. CARDIOVASCULAR: Regular rate and rhythm. RESPIRATORY: No accessory muscle use. Clear to auscultation. Breath sounds equal bilaterally. GASTROINTESTINAL: Abdomen soft, non-tender, nondistended. MUSCULOSKELETAL: Extremities without clubbing, cyanosis, or edema. No obvious deformities. NEUROLOGICAL: Awake and alert. No obvious cranial nerve deficits. Motor grossly within normal limits. Five out of 5 muscle strength in the arms and legs. Normal speech. PSYCHIATRIC: Appropriate mood and affect; insight and judgment normal. Results - Labs 10/10/18 05:12 10/10/18 05:12 Laboratory Results - last 24 hr 10/09/18 10/09/18 10/09/18 15:23 15:23 15:23 WBC RBC Hgb Hct MCV MCH MCHC RDW Plt Count MPV Neut % (Auto) Lymph % (Auto) [place] % (Auto) Eos % (Auto) Baso % (Auto) Neut # (Auto) Lymph # (Auto) [place] # (Auto) Eos # (Auto) Baso # (Auto) WBC Differential . Diff Scan Auto diff confirmed Differential Comment ESR 45 H Sodium Potassium Chloride Carbon Dioxide Anion Gap BUN Creatinine Estimated GFR Random Glucose Calcium Total Bilirubin AST ALT Alkaline Phosphatase C-Reactive Protein 14.00 H Total Protein Albumin Urine Opiates Screen Ur Barbiturates Screen Ur Amphetamines Screen U Benzodiazepines Scrn Urine Cocaine Screen U Cannabinoids Screen 10/10/18 10/10/18 10/10/18 02:00 05:12 05:12 WBC 10.0 RBC 4.24 Hgb 12.9 Hct 36.9 MCV 86.9 MCH 30.5 MCHC 35.1 RDW 12.5 Plt Count 197 MPV 7.6 Neut % (Auto) 68.8 Lymph % (Auto) 20.9 [place] % (Auto) 7.5 Eos % (Auto) 2.2 Baso % (Auto) 0.6 Neut # (Auto) 6.9 Lymph # (Auto) 2.1 [place] # (Auto) 0.8 Eos # (Auto) 0.2 Baso # (Auto) 0.1 WBC Differential . Diff Scan Differential Comment Auto diff final ESR Sodium 144 Potassium 4.4 D Chloride 105 Carbon Dioxide 31.7 Anion Gap 7 BUN 8 Creatinine 0.98 Estimated GFR 64 L Random Glucose 108 H Calcium 8.5 Total Bilirubin 0.5 AST 8 L ALT 15 Alkaline Phosphatase 74 C-Reactive Protein Total Protein 6.8 Albumin 2.8 L Urine Opiates Screen Neg Ur Barbiturates Screen Neg Ur Amphetamines Screen Neg U Benzodiazepines Scrn Neg Urine Cocaine Screen Pos H U Cannabinoids Screen Pos H - Imaging Imaging: ITS Impressions Breast Ultrasound 10/10/18 08:00 CONCLUSION: 1. Extensive hyperemic, indurated tissue as described above concerning for residual abscess. This appears to be complex fluid with predominantly phlegmon. Additional studies: US RIGHT breast reviewed Assessment and Plan - Assessment (1) Abscess of breast, right Code(s): N61.1 - Abscess of the breast and nipple Status: Acute Plan: 37 year old female with known IVDA; RIGHT breast abscess -Plan for OR incision and drainage of RIGHT breast tomorrow -Regular diet; NPO after MN -IV antibiotics per primary -All questions answered -Thank you for this consult; We will continue to follow - Plan Discussed Condition With: Dr. Jie Oconnor - Attending Attestation CONSULTATION NOTE FOR SURGICAL ATTENDING, DR. AMANDEEP CERON Patient has inflamed right breast it is draining some purulent material We will keep her n.p.o. reevaluate tomorrow she may need formal surgery debridement in the operating I agree with above assessment and plan. The exam, history, and the medical decision-making described in the above note were completed with the assistance of the mid-level provider. I reviewed and agree with the findings presented. I attest that I had a [id number] encounter with the patient on the same day, and personally performed and documented my assessment and findings in the medical record. The following services were provided during this hospital visit: Chart data review, vital sign assessments/reviewing monitor data Review of consultations notes if present. Medication orders/review and/or management Ordering and/or reviewing lab tests Ordering and/or interpreting/reviewing x-rays and/or diagnostic studies Care of the patient and discussion of the patient with the care team Documentation time To help prompt me to consider important information that might be impacting today's encounter and assessment, Information from prior notes written by myself or my colleagues may have been "brought forward/copy and pasted" into today's note.
[2018-10-10] MEDS: Vancomycin Inj 1,250 MG in Sodium Chlor 0.9% Inj 250 ML IV.SIG SCH (17:39)
[2018-10-10] MEDS: Sodium Chloride 0.9% 2 ML Flush BID IV.FLUSH SCH (20:10)
[2018-10-11] MEDS: Piperacil/Tazo 3.375 GM Premix 50 ML IV.SIG SCH ×3 (02:19→16:51)
[2018-10-11] MEDS: Gabapentin 300 MG Capsule PO SCH (08:33)
[2018-10-11] MEDS: Senna/Docusate Sodium 8.6/50 MG Tablet PO SCH ×2 (08:34→20:17)
[2018-10-11] MEDS: Sodium Chloride 0.9% 2 ML Flush BID IV.FLUSH SCH ×2 (08:34→20:17)
--- NOTE | 2018-10-11 10:18 | P.PN ---
Subjective Interval history: Follow-up right breast abscess/sepsis October 10, 2018-patient seen and examined, complains of inadequate pain control to her right breast otherwise afebrile. October 11, 2018-patient seen and examined, reported improvement of breast pain. Currently n.p.o. and pending incision and drainage in OR by general surgery. Physical Exam Vital signs: Vital Signs 10/10/18 12:00 10/10/18 16:00 10/10/18 20:00 Temperature 99.2 F 97.6 F 97.4 F L Pulse Rate 76 70 68 Respiratory Rate 18 18 17 Blood Pressure 105/58 L 103/58 L 109/56 L Pulse Oximetry 98 98 100 10/11/18 00:00 10/11/18 08:00 Temperature 98.0 F 98.1 F Pulse Rate 67 63 Respiratory Rate 17 20 Blood Pressure 115/66 98/51 L Pulse Oximetry 99 95 Intake & Output 10/10/18 10/11/18 10/11/18 18:59 06:59 18:59 Intake Total 50 / 50 362.5 / 362.5 Balance 50 / 50 362.5 / 362.5 Weight 70.7 kg Intake: IV 50 / 50 362.5 / 362.5 Zosyn 3.375 GM Premix 50 ML @ 50 / 50 100 / 100 100 mls/hr IV.SIG Q8H [facility] Rx#: [id number] Vancomycin Inj 1,250 MG In NS 262.5 / 262.5 Inj 250 ML @ 250 mls/hr IV.SIG Q24H [facility] Rx#:[id number] Other: # Voids 4 3 Narrative: GENERAL: 37 year old female resting in bed in no acute distress. SKIN: RIGHT breast--- just superior of the areolar the patient has an area of induration and fluid collection which is draining purulent drainage through a very small hole; her breast is red and tender throughout. She has several areas on her BUE which appear to be healing scabs---none of which looks infected. HEAD: Atraumatic. Normocephalic. EYES: Pupils equal and round. No scleral icterus. No injection or drainage. ENT: No nasal bleeding or discharge. Mucous membranes pink and moist. NECK: Trachea midline. CARDIOVASCULAR: Regular rate and rhythm. RESPIRATORY: No accessory muscle use. Clear to auscultation. Breath sounds equal bilaterally. GASTROINTESTINAL: Abdomen soft, non-tender, nondistended. MUSCULOSKELETAL: Extremities without clubbing, cyanosis, or edema. No obvious deformities. NEUROLOGICAL: Awake and alert. No obvious cranial nerve deficits. Motor grossly within normal limits. Five out of 5 muscle strength in the arms and legs. Normal speech. PSYCHIATRIC: Appropriate mood and affect; insight and judgment normal. Results - Labs CBC & Chem 7: 10/10/18 05:12 10/10/18 05:12 Microbiology 10/09/18 15:23 Blood - Peripheral Aerobic Blood Culture - Preliminary gram positive cocci 10/09/18 15:23 Blood - Peripheral Anaerobic Blood Culture - Preliminary No growth in 1 day 10/09/18 15:23 Abscess - Breast Gram Stain - Final 10/09/18 15:23 Abscess - Breast Wound Culture - Preliminary No growth in 24 hours 10/09/18 15:23 Blood - Peripheral Aerobic Blood Culture - Preliminary No growth in 1 day 10/09/18 15:23 Blood - Peripheral Anaerobic Blood Culture - Preliminary No growth in 1 day Assessment and Plan - Plan 37-year-old female with Sepsis: Resolved Continue Zosyn and vancomycin pending culture reports Gram-positive bacteremia 1 blood culture positive Currently on Zosyn and vancomycin Repeat blood culture October 11, 2018 Consult infectious disease specialist October 11, 2018 Right breast abscess status Post I&D in ED pending culture report breast ultrasound with finding of Extensive hyperemic, indurated tissue as described above concerning for residual abscess Appreciate input from general surgery and Plan for OR incision and drainage of RIGHT breast today October 11, 2018 Currently on Zosyn and vancomycin pending culture and wound abscess reports Infectious disease consultation pending Leukocytosis-resolved From above and treatment as an above History of IVDU Extensively counseled against 2D echo without any vegetation UDS positive for cocaine Tobacco abuse Tobacco counseling cessation provided Continue nicotine patch DVT prophylaxis: SCDs
[2018-10-11] MEDS: Vancomycin Inj 1,250 MG in Sodium Chlor 0.9% Inj 250 ML IV.SIG SCH (16:57)
--- NOTE | 2018-10-11 17:36 | P.PNGS ---
Subjective Interval history: DAILY PROGRESS NOTE FOR SURGICAL ATTENDING, DR. MARY NORTH Resting in bed Unfortunately unable to get patient to the OR today due to availability Patient understands Physical Exam Vital signs: Vital Signs 10/10/18 20:00 10/11/18 00:00 10/11/18 08:00 Temperature 97.4 F L 98.0 F 98.1 F Pulse Rate 68 67 63 Respiratory Rate 17 17 20 Blood Pressure 109/56 L 115/66 98/51 L Pulse Oximetry 100 99 95 10/11/18 12:00 10/11/18 16:00 Temperature 98.2 F 98.3 F Pulse Rate 61 61 Respiratory Rate 20 20 Blood Pressure 105/61 106/63 Pulse Oximetry 98 96 Intake & Output 10/10/18 10/11/18 10/11/18 18:59 06:59 18:59 Intake Total 50 / 50 362.5 / 362.5 50 / 50 Output Total 3 / 3 Balance 50 / 50 362.5 / 362.5 47 / 47 Weight 70.7 kg Intake: IV 50 / 50 362.5 / 362.5 50 / 50 Zosyn 3.375 GM Premix 50 ML @ 50 / 50 100 / 100 50 / 50 100 mls/hr IV.SIG Q8H [facility] Rx#: [id number] Vancomycin Inj 1,250 MG In NS 262.5 / 262.5 Inj 250 ML @ 250 mls/hr IV.SIG Q24H [facility] Rx#:[id number] Output: Urine 3 / 3 Other: # Voids 4 3 Narrative: Alert and awake RIGHT breast--- continues to have purulent drainage; far less redness than yesterday although still indurated. Results - Labs 10/10/18 05:12 10/10/18 05:12 - Imaging Imaging: ITS Impressions Breast Ultrasound 10/10/18 08:00 CONCLUSION: 1. Extensive hyperemic, indurated tissue as described above concerning for residual abscess. This appears to be complex fluid with predominantly phlegmon. Assessment and Plan - Assessment (1) Abscess of breast, right Code(s): N61.1 - Abscess of the breast and nipple Status: Acute Plan: 37 year old female with known IVDA; RIGHT breast abscess -Plan for OR incision and drainage of RIGHT breast tomorrow -Regular diet; NPO after MN -IV antibiotics per primary -Consents already on chart - Attending Attestation NOTE FOR SURGICAL ATTENDING, DR. MARY NORTH Operating room is backed up Surgery postponed till tomorrow I agree with above assessment and plan. The exam, history, and the medical decision-making described in the above note were completed with the assistance of the mid-level provider. I reviewed and agree with the findings presented. I attest that I had a [id number] encounter with the patient on the same day, and personally performed and documented my assessment and findings in the medical record. The following services were provided during this hospital visit: Chart data review, vital sign assessments/reviewing monitor data Review of consultations notes if present. Medication orders/review and/or management Ordering and/or reviewing lab tests Ordering and/or interpreting/reviewing x-rays and/or diagnostic studies Care of the patient and discussion of the patient with the care team Documentation time To help prompt me to consider important information that might be impacting today's encounter and assessment, Information from prior notes written by myself or my colleagues may have been "brought forward/copy and pasted" into today's note.
--- NOTE | 2018-10-11 20:29 | P.CONID ---
History of Present Illness Service: ID Consult date: 10/11/18 Requesting Physician: Caio Padilla Reason for Consult: R beast abscess Primary Care Provider: UNKNOWN Chief Complaint: Right breast pain History of Present Illness: 37 yo F with IVDU shooting into breasts veins presented with 2-3 days of swelling pain of R breast _+ subjective fever b/s I+D in ER growing viridans strep from the wound Improved on current abx WBC 14 K - down to 10 K On presentation fever 101, but now normal temp 1/4 BC with coag neg staph Breast US showed Extensive hyperemic, indurated tissue as described above concerning for residual abscess. This appears to be complex fluid with predominantly phlegmon. Pt was scheduled for I+D in OR for tomorrow Review of Systems All other systems reviewed negative except as stated in HPI PMFSH - History History Provided By: Patient - Medical History Medical History: Medical History (Last Reviewed 10/10/18 @ 19:45 by Amandeep Ceron MD) IV drug abuse Tubal ligation status Wound of left foot - Surgical History Surgical History: Surgical History (Last Reviewed 10/10/18 @ 19:45 by Amandeep Ceron MD) Hx of cholecystectomy - Family History Family History: Family History (Last Reviewed 10/10/18 @ 19:45 by Amandeep Ceron MD) Other Diabetes Hypertension - Tobacco History Second Hand Smoke Exposure: Yes Tobacco Use In Past 30 Days: Yes Smoking Status: Current every day smoker Tobacco Type: Cigarettes - Alcohol History How Often Do You Have a Drink Containing Alcohol: Monthly or less - Substance Use History Substance History: Active Abuse - Travel History Recent Travel in the [place] Within the Last 8 Weeks: No Recent Travel Out of the Country Within the Last 8 Weeks: No - Immunization History Tetanus Immunization: <5 Years Hx Influenza Vaccine This Season: No Medications and Allergies Active Medications: Active Medications Acetaminophen (Tylenol) 650 mg PO Q4H PRN PRN Reason: Temp > 100.4 Al Hydroxide/Mg Hydroxide (Milk Of Magnesia Liq) 30 ml PO Q12H PRN PRN Reason: Mild Constipation Bisacodyl (Dulcolax Supp) 10 mg RECTAL DAILY PRN PRN Reason: SEVERE CONSITIPATION Gabapentin (Neurontin) 600 mg PO DAILY [facility] Last Admin: 10/11/18 08:33 Dose: 600 mg Piperacillin/Tazobactam/Dextrose (Zosyn 3.375 Gm Premix) 50 mls @ 100 mls/hr IV.SIG Q8H [facility] Last Infusion: 10/11/18 18:16 Dose: Infused Vancomycin HCl 1,250 mg/ (Sodium Chloride) 262.5 mls @ 250 mls/hr IV.SIG Q24H [facility] Last Infusion: 10/11/18 18:45 Dose: Infused Ibuprofen (Motrin) 400 mg PO Q6HR PRN PRN Reason: PAIN SCALE 1 TO 2 Last Admin: 10/10/18 09:34 Dose: 400 mg Lactulose (Lactulose Liq) 30 ml PO DAILY PRN PRN Reason: SEVERE CONSITIPATION Naloxone HCl (Narcan Inj) 0.4 mg IV.PUSH UNSCH PRN PRN Reason: SEE LABEL COMMENTS Nicotine (Habitrol 21 Mg Patch.24 Hr) 1 patch T-DERMAL DAILY [facility] Last Admin: 10/11/18 08:34 Dose: 1 patch Ondansetron HCl (Zofran Inj) 4 mg IV.PUSH Q6H PRN PRN Reason: NAUSEA OR VOMITING Patch Removal (Remove Old Patch) 1 each T-DERMAL HS [facility] Last Admin: 10/11/18 20:18 Dose: 1 each Senna/Docusate Sodium (Joan-Colace) 1 tab PO BID [facility] Last Admin: 10/11/18 20:17 Dose: 1 tab Sennosides (Senokot) 17.2 mg PO Q12H PRN PRN Reason: Moderate Constipation Sodium Chloride (Ns Flush) 2 ml IV.FLUSH BID [facility] Last Admin: 10/11/18 20:17 Dose: 2 ml Sodium Chloride (Ns Flush) 2 ml IV.FLUSH PRN PRN PRN Reason: FLUSH AFTER USING IV ACCESS Tramadol HCl (Ultram) 50 mg PO Q6H PRN PRN Reason: PAIN SCALE 6 TO 10 Last Admin: 10/11/18 20:18 Dose: 50 mg Allergies Allergy/AdvReac Type Severity Reaction Status Date / Time No Known Allergies Allergy Verified 08/25/18 13:53 Home Medications Medication Instructions Recorded Confirmed Type gabapentin 600 mg PO DAILY 10/09/18 10/09/18 History Exam Vital signs: Vital Signs 10/11/18 00:00 10/11/18 08:00 10/11/18 12:00 Temperature 98.0 F 98.1 F 98.2 F Pulse Rate 67 63 61 Respiratory Rate 17 20 20 Blood Pressure 115/66 98/51 L 105/61 Pulse Oximetry 99 95 98 10/11/18 16:00 Temperature 98.3 F Pulse Rate 61 Respiratory Rate 20 Blood Pressure 106/63 Pulse Oximetry 96 Intake & Output 10/11/18 10/11/18 10/12/18 06:59 18:59 06:59 Intake Total 362.5 / 362.5 362.5 / 362.5 Output Total 3 / 3 Balance 362.5 / 362.5 359.5 / 359.5 Weight 70.7 kg Intake: IV 362.5 / 362.5 362.5 / 362.5 Zosyn 3.375 GM Premix 50 ML @ 100 / 100 100 / 100 100 mls/hr IV.SIG Q8H [facility] Rx#: [id number] Vancomycin Inj 1,250 MG In NS 262.5 / 262.5 262.5 / 262.5 Inj 250 ML @ 250 mls/hr IV.SIG Q24H [facility] Rx#:[id number] Output: Urine 3 / 3 Other: # Voids 3 - Constitutional no acute distress, average body habitus - Routine HEENT Exam Head: Present: normocephalic, atraumatic Eye: Present: EOMI, PERRL ENT: Present: mucous membranes moist, oropharynx clear. Absent: dentition normal (poor) - Routine Neck Exam Present: supple, full ROM - Routine Chest/Breast/Axilla Exam Breast: Present: tenderness (R), induration (R, periarealar), swelling, erythema - Routine Respiratory Exam Present: CTA bilaterally. Absent: decreased breath sounds, rhonchi - Routine Cardiovascular Exam Present: RRR, S1, S2. Absent: murmur, gallop, rubs - Routine Abdominal Exam Present: soft, normoactive bowel sounds. Absent: tenderness, distended, organomegaly, mass - Routine Extremities Exam Absent: cyanosis, clubbing, edema - Routine Skin Exam Absent: intact, cyanosis, erythema, dry - Routine Neurological Exam Present: alert, oriented X3, CN II-XII intact. Absent: sensory deficit, motor deficit - Routine Psychiatric Exam Present: normal affect, cooperative Results - Labs CBC & Chem 7: 10/10/18 05:12 10/10/18 05:12 - Imaging Breast Ultrasound 10/10/18 08:00 CONCLUSION: 1. Extensive hyperemic, indurated tissue as described above concerning for residual abscess. This appears to be complex fluid with predominantly phlegmon. Assessment and Plan - Plan IVDU Abscess R breast, vir strep Coag neg staph bacteremia, low grade (1/4 bottles): no clin significance cont current abx fu clx untill final dw Dr Lucero
[2018-10-12] MEDS: Piperacil/Tazo 3.375 GM Premix 50 ML IV.SIG SCH ×3 (00:46→16:35)
[2018-10-12] MEDS: Senna/Docusate Sodium 8.6/50 MG Tablet PO SCH ×2 (09:55→22:25)
[2018-10-12] MEDS: Gabapentin 300 MG Capsule PO SCH (09:56)
[2018-10-12] MEDS: Sodium Chloride 0.9% 2 ML Flush BID IV.FLUSH SCH ×2 (09:56→22:26)
--- NOTE | 2018-10-12 12:50 | P.PN ---
Subjective Interval history: Follow-up right breast abscess/sepsis October 12, 2018-patient seen and examined, reported improvement of right breast swelling. Afebrile. Surgery was postponed until today for I&D. Currently n.p.o. Physical Exam Vital signs: Vital Signs 10/11/18 16:00 10/11/18 20:00 10/11/18 21:00 Temperature 98.3 F 98.2 F Pulse Rate 61 75 Respiratory Rate 20 18 16 Blood Pressure 106/63 115/63 Pulse Oximetry 96 99 10/12/18 00:00 10/12/18 05:00 10/12/18 08:34 Temperature 98.0 F 98.2 F Pulse Rate 62 57 L Respiratory Rate 18 16 16 Blood Pressure 96/53 L 95/57 L Pulse Oximetry 99 97 10/12/18 12:00 Temperature 98.1 F Pulse Rate 69 Respiratory Rate 16 Blood Pressure 125/60 Pulse Oximetry 92 L Intake & Output 10/11/18 10/12/18 10/12/18 18:59 06:59 18:59 Intake Total 362.5 / 362.5 50 / 50 50 / 50 Output Total 3 / 3 Balance 359.5 / 359.5 50 / 50 50 / 50 Weight 70.5 kg Intake: IV 362.5 / 362.5 50 / 50 50 / 50 Zosyn 3.375 GM Premix 50 ML @ 100 / 100 50 / 50 50 / 50 100 mls/hr IV.SIG Q8H [facility] Rx#: [id number] Vancomycin Inj 1,250 MG In NS 262.5 / 262.5 Inj 250 ML @ 250 mls/hr IV.SIG Q24H [facility] Rx#:[id number] Output: Urine 3 / 3 Other: # Voids 3 Narrative: GENERAL: NAD SKIN: Warm and dry. HEAD: Atraumatic. Normocephalic. EYES: Pupils equal and round. No scleral icterus. No injection or drainage. ENT: No nasal bleeding or discharge. Mucous membranes pink and moist. Right breast exam performed in the presence of RN: improve erythema and swelling NECK: Trachea midline. No JVD. CARDIOVASCULAR: Regular rate and rhythm. RESPIRATORY: No accessory muscle use. Clear to auscultation. Breath sounds equal bilaterally. GASTROINTESTINAL: Abdomen soft, non-tender, nondistended. Hepatic and splenic margins not palpable. MUSCULOSKELETAL: Extremities without clubbing, cyanosis, or edema. No obvious deformities. NEUROLOGICAL: Awake and alert. No obvious cranial nerve deficits. Motor grossly within normal limits. Five out of 5 muscle strength in the arms and legs. Normal speech. PSYCHIATRIC: Appropriate mood and affect; insight and judgment normal.. Results - Labs CBC & Chem 7: 10/10/18 05:12 10/10/18 05:12 Microbiology 10/09/18 15:23 Abscess - Breast Gram Stain - Final 10/09/18 15:23 Abscess - Breast Wound Culture - Final 10/11/18 10:55 Blood - Peripheral Aerobic Blood Culture - Preliminary No growth in 1 day 10/11/18 10:55 Blood - Peripheral Anaerobic Blood Culture - Preliminary No growth in 1 day 10/11/18 10:45 Blood - Peripheral Aerobic Blood Culture - Preliminary No growth in 1 day 10/11/18 10:45 Blood - Peripheral Anaerobic Blood Culture - Preliminary No growth in 1 day 10/09/18 15:23 Blood - Peripheral Aerobic Blood Culture - Preliminary Staphylococcus coag negative 10/09/18 15:23 Blood - Peripheral Anaerobic Blood Culture - Preliminary No growth in 3 days 10/09/18 15:23 Blood - Peripheral Aerobic Blood Culture - Preliminary No growth in 3 days 10/09/18 15:23 Blood - Peripheral Anaerobic Blood Culture - Preliminary No growth in 3 days 10/09/18 15:23 Abscess - Breast Acid Fast Bacilli Smear - Final No acid fast bacilli seen 10/09/18 15:23 Abscess - Breast Fungal Smear - Final No fungal elements seen Assessment and Plan - Plan 37-year-old female with Sepsis: Resolved Continue Zosyn and vancomycin pending culture reports Gram-positive bacteremia 1 blood culture positive Currently on Zosyn and vancomycin Repeat blood culture October 11, 2018 NTD Appreciate input from infectious disease specialist Right breast abscess status Post I&D in ED pending culture report breast ultrasound with finding of Extensive hyperemic, indurated tissue as described above concerning for residual abscess Appreciate input from general surgery and Plan for OR incision and drainage of RIGHT breast today October 12, 2018 Currently on Zosyn and vancomycin pending culture and wound abscess reports Infectious disease consultation pending Leukocytosis-resolved From above and treatment as an above History of IVDU Extensively counseled against 2D echo without any vegetation UDS positive for cocaine Tobacco abuse Tobacco counseling cessation provided Continue nicotine patch DVT prophylaxis: SCDs
[2018-10-12] MEDS ORDERED: Dexmedetomidine Inj 200 MCG/2 ML Vial ONE (15:47)
[2018-10-12] MEDS ORDERED: Propofol Inj 500 MG/50 ML Vial ONE (15:48)
[2018-10-12] MEDS ORDERED: Bupivacaine/Epinephrine PF Inj 0.5% 30 ML Vial ONE (15:58)
[2018-10-12] MEDS ORDERED: Lidocaine 1%/Epinephrine 1:100,000 Inj 30 ML Vial ONE (15:58)
[2018-10-12] MEDS: Vancomycin Inj 1,250 MG in Sodium Chlor 0.9% Inj 250 ML IV.SIG SCH (16:38)
[2018-10-12] MEDS ORDERED: *HYDROmorphone PF Inj 1 MG/ML Ampul PERIprocedural Use ONLY ONE ×2 (16:54→17:14)
[2018-10-12] MEDS ORDERED: fentaNYL Citrate Inj 100 MCG/2 ML Ampul ONE (17:04)
--- NOTE | 2018-10-12 17:35 | MP ---
cc: Amandeep Ceron MD DATE OF OPERATION: 10/12/2018 PREOPERATIVE DIAGNOSIS: Right breast abscess. POSTOPERATIVE DIAGNOSIS: Right breast abscess. PROCEDURE PERFORMED: Incision and drainage of right breast abscess with packing with removal of necrotic deep breast tissue. ANESTHESIA: TIVA. SURGEON: Amandeep Ceron MD INDICATIONS FOR PROCEDURE: This is a 37-year-old female who developed a right-sided breast abscess. This was attempted to be drained in the emergency room. It was inadequate. We attempted to do it last night, but OR schedule delayed things because there was no time in the operating room. Plans were made for treatment today. PROCEDURE: The patient was taken to the operating room and placed in the supine position. After anesthesia, her right breast was prepped with Betadine. She is on scheduled antibiotics. She is under the care of infectious disease as well. The wound had previously been partially opened at the 1200 oclock position. After anesthetized with Marcaine solution we extended the incision about 0.5 cm medially and laterally. A small amount of purulent material returned, which was cultured. The breast tissue was very firm and woody. Some of this necrotic tissue was then excised and sent down to pathology. We then irrigated copiously. I do not feel any more fluid pockets. It appears to be adequately drained. We then just gently packed in about a foot of 0.25 inch iodoform gauze into the area that had been soaked in a little Betadine. A sterile bandage was applied. The patient tolerated the procedure well and had no immediate postop complications. Amandeep Ceron MD JDB/ct , 04:46 PM , 04:52 PM [facility] CENTERFroylan
[2018-10-12] MEDS ORDERED: HYDROmorphone PF Inj 1 MG/ML Ampul IV.PUSH PRN (17:48)
[2018-10-12] MEDS: Ibuprofen 400 MG Tablet PO PRN (22:25)
[2018-10-13] MEDS: Piperacil/Tazo 3.375 GM Premix 50 ML IV.SIG SCH ×3 (00:16→16:16)
[2018-10-13] MEDS: Senna/Docusate Sodium 8.6/50 MG Tablet PO SCH ×2 (09:21→20:41)
[2018-10-13] MEDS: Gabapentin 300 MG Capsule PO SCH (09:22)
[2018-10-13] MEDS: Sodium Chloride 0.9% 2 ML Flush BID IV.FLUSH SCH ×2 (09:22→20:41)
[2018-10-13] MEDS: Ibuprofen 400 MG Tablet PO PRN ×3 (10:06→22:04)
--- NOTE | 2018-10-13 12:35 | P.PN ---
Subjective Interval history: appears comfortable no fever or chills no diarrhea, nausea or vomting Physical Exam Vital signs: Vital Signs 10/12/18 16:46 10/12/18 17:00 10/12/18 17:15 Temperature 97.4 F L Pulse Rate 67 64 62 Respiratory Rate 18 22 16 Blood Pressure 90/55 L 94/52 L 95/55 L Pulse Oximetry 100 97 96 10/12/18 17:30 10/12/18 17:45 10/12/18 20:00 Temperature 98.2 F 97.4 F L Pulse Rate 60 60 78 Respiratory Rate 16 16 17 Blood Pressure 96/55 L 97/55 L 116/62 Pulse Oximetry 96 96 98 10/13/18 00:00 10/13/18 06:58 Temperature 98.2 F 98.1 F Pulse Rate 62 56 L Respiratory Rate 17 17 Blood Pressure 101/53 L 94/50 L Pulse Oximetry 98 97 Intake & Output 10/12/18 10/13/18 10/13/18 18:59 06:59 18:59 Intake Total 362.5 / 362.5 530 / 530 50 / 50 Balance 362.5 / 362.5 530 / 530 50 / 50 Weight 70.5 kg Intake: IV 362.5 / 362.5 50 / 50 50 / 50 Zosyn 3.375 GM Premix 50 ML @ 100 / 100 50 / 50 50 / 50 100 mls/hr IV.SIG Q8H [facility] Rx#: [id number] Vancomycin Inj 1,250 MG In NS 262.5 / 262.5 Inj 250 ML @ 250 mls/hr IV.SIG Q24H [facility] Rx#:[id number] Oral 0 / 0 480 / 480 Other: # Voids 3 2 Date of Last Bowel Movement 10/12/18 Narrative: awake and alert no distress anciteric neck supple lungs- clear right breast- mild erythema-just above the nipple , incision edges clean, packing in place left breast- no erythema, no mass, + well healed scar abdomen soft, nontender extremities no edema neuro exam- normal Results - Labs CBC & Chem 7: 10/10/18 05:12 10/10/18 05:12 Microbiology 10/11/18 10:55 Blood - Peripheral Aerobic Blood Culture - Preliminary No growth in 2 days 10/11/18 10:55 Blood - Peripheral Anaerobic Blood Culture - Preliminary No growth in 2 days 10/11/18 10:45 Blood - Peripheral Aerobic Blood Culture - Preliminary No growth in 2 days 10/11/18 10:45 Blood - Peripheral Anaerobic Blood Culture - Preliminary No growth in 2 days 10/09/18 15:23 Blood - Peripheral Aerobic Blood Culture - Final Staphylococcus epidermidis 10/09/18 15:23 Blood - Peripheral Anaerobic Blood Culture - Preliminary No growth in 4 days 10/09/18 15:23 Blood - Peripheral Aerobic Blood Culture - Preliminary No growth in 4 days 10/09/18 15:23 Blood - Peripheral Anaerobic Blood Culture - Preliminary No growth in 4 days 10/12/18 16:34 Wound - Breast Gram Stain - Final 10/09/18 15:23 Abscess - Breast Gram Stain - Final 10/09/18 15:23 Abscess - Breast Wound Culture - Final 10/09/18 15:23 Abscess - Breast Acid Fast Bacilli Smear - Final No acid fast bacilli seen 10/09/18 15:23 Abscess - Breast Fungal Smear - Final No fungal elements seen Assessment and Plan - Plan 37-year-old female with Sepsis:secondary to Rigth breast Abscess S/P I and D Continue Zosyn and vancomycin pending culture reports Repeat blood culture October 11, 2018 NTD Appreciate input from infectious disease specialist breast ultrasound with finding of Extensive hyperemic, indurated tissue as described above concerning for residual abscess Appreciate input from general surgery and Plan for OR incision and drainage of RIGHT breast today October 12, 2018 Infectious disease ff Leukocytosis-resolved From above and treatment as an above History of IVDU Extensively counseled against 2D echo without any vegetation UDS positive for cocaine Tobacco abuse Tobacco counseling cessation provided Continue nicotine patch DVT prophylaxis: SCDs patient up and ambulating
--- NOTE | 2018-10-13 14:35 | P.PNGS ---
Subjective Interval history: DAILY PROGRESS NOTE FOR SURGICAL ATTENDING, DR. MARY NORTH Resting in bed Showered and removed dressing Physical Exam Vital signs: Vital Signs 10/12/18 16:46 10/12/18 17:00 10/12/18 17:15 Temperature 97.4 F L Pulse Rate 67 64 62 Respiratory Rate 18 22 16 Blood Pressure 90/55 L 94/52 L 95/55 L Pulse Oximetry 100 97 96 10/12/18 17:30 10/12/18 17:45 10/12/18 20:00 Temperature 98.2 F 97.4 F L Pulse Rate 60 60 78 Respiratory Rate 16 16 17 Blood Pressure 96/55 L 97/55 L 116/62 Pulse Oximetry 96 96 98 10/13/18 00:00 10/13/18 06:58 10/13/18 12:00 Temperature 98.2 F 98.1 F 97.6 F Pulse Rate 62 56 L 62 Respiratory Rate 17 17 17 Blood Pressure 101/53 L 94/50 L 106/61 Pulse Oximetry 98 97 99 Intake & Output 10/12/18 10/13/18 10/13/18 18:59 06:59 18:59 Intake Total 362.5 / 362.5 530 / 530 50 / 50 Balance 362.5 / 362.5 530 / 530 50 / 50 Weight 70.5 kg Intake: IV 362.5 / 362.5 50 / 50 50 / 50 Zosyn 3.375 GM Premix 50 ML @ 100 / 100 50 / 50 50 / 50 100 mls/hr IV.SIG Q8H [facility] Rx#: [id number] Vancomycin Inj 1,250 MG In NS 262.5 / 262.5 Inj 250 ML @ 250 mls/hr IV.SIG Q24H [facility] Rx#:[id number] Oral 0 / 0 480 / 480 Other: # Voids 3 2 Date of Last Bowel Movement 10/12/18 Narrative: Alert and awake RIGHT breast--- packing already removed; no residual purulent drainage in cavity ; entire breast is less indurated; packing replaced Results - Labs 10/10/18 05:12 10/10/18 05:12 - Imaging Imaging: ITS Impressions Breast Ultrasound 10/10/18 08:00 CONCLUSION: 1. Extensive hyperemic, indurated tissue as described above concerning for residual abscess. This appears to be complex fluid with predominantly phlegmon. Assessment and Plan - Assessment (1) Abscess of breast, right Code(s): N61.1 - Abscess of the breast and nipple Status: Acute Plan: 37 year old female with known IVDA; RIGHT breast abscess -POD1 I&D RIGHT breast -Continue packing to open area -Regular diet -IV antibiotics per ID -Dressing change done with WILFREDO Meyer at bedside -Patient does not feel like she needs [facility] for dressing changes -Clear for DC when pain controlled and on oral antibiotics (per ID) - Attending Attestation NOTE FOR SURGICAL ATTENDING, DR. MARY NORTH I agree with above assessment and plan. The exam, history, and the medical decision-making described in the above note were completed with the assistance of the mid-level provider. I reviewed and agree with the findings presented. The following services were provided during this hospital visit: Chart data review, vital sign assessments/reviewing monitor data Review of consultations notes if present. Medication orders/review and/or management Ordering and/or reviewing lab tests Ordering and/or interpreting/reviewing x-rays and/or diagnostic studies Care of the patient and discussion of the patient with the care team Documentation time To help prompt me to consider important information that might be impacting today's encounter and assessment, Information from prior notes written by myself or my colleagues may have been "brought forward/copy and pasted" into today's note.
[2018-10-13] MEDS: Vancomycin Inj 1,250 MG in Sodium Chlor 0.9% Inj 250 ML IV.SIG SCH (15:46)
[2018-10-14] MEDS: Piperacil/Tazo 3.375 GM Premix 50 ML IV.SIG SCH ×3 (00:27→16:22)
[2018-10-14] MEDS: Sodium Chloride 0.9% 2 ML Flush BID IV.FLUSH SCH ×2 (09:31→20:40)
[2018-10-14] MEDS: Gabapentin 300 MG Capsule PO SCH (09:31)
[2018-10-14] MEDS: Senna/Docusate Sodium 8.6/50 MG Tablet PO SCH ×2 (09:32→20:40)
[2018-10-14] MEDS: Ibuprofen 400 MG Tablet PO PRN ×3 (09:34→22:42)
--- NOTE | 2018-10-14 11:35 | P.PN ---
Subjective Interval history: feeling better, no complains afebrile Physical Exam Vital signs: Vital Signs 10/13/18 12:00 10/13/18 16:00 10/13/18 20:00 Temperature 97.6 F 97.6 F 98 F Pulse Rate 62 68 64 Respiratory Rate 17 16 16 Blood Pressure 106/61 116/66 108/56 L Pulse Oximetry 99 100 97 10/14/18 01:54 10/14/18 07:16 10/14/18 11:27 Temperature 97.7 F 97.6 F 98.1 F Pulse Rate 60 57 L 59 L Respiratory Rate 15 16 17 Blood Pressure 123/74 94/54 L 104/58 L Pulse Oximetry 99 97 98 Intake & Output 10/13/18 10/14/18 10/14/18 18:59 06:59 18:59 Intake Total 1550 / 1550 1250 / 1250 Balance 1550 / 1550 1250 / 1250 Weight 72.5 kg Intake: IV 350 / 350 50 / 50 Zosyn 3.375 GM Premix 50 ML @ 100 / 100 50 / 50 100 mls/hr IV.SIG Q8H [facility] Rx#: [id number] Vancomycin Inj 1,250 MG In NS 250 / 250 Inj 250 ML @ 250 mls/hr IV.SIG Q24H [facility] Rx#:[id number] Oral 1200 / 1200 1200 / 1200 Other: # Voids 7 2 Date of Last Bowel Movement 10/12/18 10/12/18 # Bowel Movements 1 Narrative: Alert and awake right breat- no surrounding erythema, soft, - incision clean, packing in place lungs- clear abdomen soft Results - Labs CBC & Chem 7: 10/10/18 05:12 10/10/18 05:12 Microbiology 10/11/18 10:55 Blood - Peripheral Aerobic Blood Culture - Preliminary No growth in 3 days 10/11/18 10:55 Blood - Peripheral Anaerobic Blood Culture - Preliminary No growth in 3 days 10/11/18 10:45 Blood - Peripheral Aerobic Blood Culture - Preliminary No growth in 3 days 10/11/18 10:45 Blood - Peripheral Anaerobic Blood Culture - Preliminary No growth in 3 days 10/09/18 15:23 Blood - Peripheral Aerobic Blood Culture - Final Staphylococcus epidermidis 10/09/18 15:23 Blood - Peripheral Anaerobic Blood Culture - Final No growth in 5 days 10/09/18 15:23 Blood - Peripheral Aerobic Blood Culture - Final No growth in 5 days 10/09/18 15:23 Blood - Peripheral Anaerobic Blood Culture - Final No growth in 5 days 10/12/18 16:34 Wound - Breast Fungal Smear - Final No fungal elements seen 10/12/18 16:34 Wound - Breast Acid Fast Bacilli Smear - Final No acid fast bacilli seen 10/12/18 16:34 Wound - Breast Gram Stain - Final 10/12/18 16:34 Wound - Breast Wound Culture - Preliminary Staphylococcus coag negative Assessment and Plan - Plan 37-year-old female with Gram negtive Sepsis:secondary to Right breast Abscess S/P I and D- 10/12 Continue Zosyn and vancomycin /2D echo negative Repeat blood culture October 11, 2018- growing gram negative Appreciate input from infectious disease specialist breast ultrasound with finding of Extensive hyperemic, indurated tissue as described above concerning for residual abscess Infectious disease ff Leukocytosis-resolved From above and treatment as an above History of IVDU Extensively counseled against 2D echo without any vegetation UDS positive for cocaine Tobacco abuse Tobacco counseling cessation provided Continue nicotine patch DVT prophylaxis: SCDs patient up and ambulating hoepfully DC todaywith po antiivbotic
[2018-10-14] MEDS: Vancomycin Inj 1,250 MG in Sodium Chlor 0.9% Inj 250 ML IV.SIG SCH (16:23)
--- NOTE | 2018-10-14 22:33 | P.PNID ---
Subjective Remarks: + blood clx, GNR in aeroibic bottle sp I+D, path cw abscess dw Dr York no fever 2 D echo w/o veg's Antibiotics: vanco zosyn Allergies/Adverse Reactions: Allergies No Known Allergies Allergy (Verified 08/25/18 13:53) Objective Vital Signs 10/14/18 01:54 10/14/18 07:16 10/14/18 11:27 Temperature 97.7 F 97.6 F 98.1 F Pulse Rate 60 57 L 59 L Respiratory Rate 15 16 17 Blood Pressure 123/74 94/54 L 104/58 L Pulse Oximetry 99 97 98 10/14/18 16:00 10/14/18 20:00 Temperature 98.1 F 98.0 F Pulse Rate 63 109 H Respiratory Rate 19 20 Blood Pressure 108/57 L 134/73 Pulse Oximetry 97 99 Intake & Output 10/14/18 10/14/18 10/15/18 06:59 18:59 06:59 Intake Total 1250 / 1250 825 / 825 262.5 / 262.5 Balance 1250 / 1250 825 / 825 262.5 / 262.5 Weight 72.5 kg Intake: IV 50 / 50 100 / 100 262.5 / 262.5 Zosyn 3.375 GM Premix 50 ML @ 50 / 50 100 / 100 100 mls/hr IV.SIG Q8H [facility] Rx#: [id number] Vancomycin Inj 1,250 MG In NS 262.5 / 262.5 Inj 250 ML @ 250 mls/hr IV.SIG Q24H [facility] Rx#:[id number] Oral 1200 / 1200 725 / 725 Other: # Voids 2 6 Date of Last Bowel Movement 10/12/18 10/14/18 # Bowel Movements 1 10/11/18 10:45 Blood - Peripheral Aerobic Blood Culture - Preliminary gram negative rods 10/11/18 10:45 Blood - Peripheral Anaerobic Blood Culture - Preliminary No growth in 3 days 10/11/18 10:55 Blood - Peripheral Aerobic Blood Culture - Preliminary No growth in 3 days 10/11/18 10:55 Blood - Peripheral Anaerobic Blood Culture - Preliminary No growth in 3 days 10/09/18 15:23 Blood - Peripheral Aerobic Blood Culture - Final Staphylococcus epidermidis 10/09/18 15:23 Blood - Peripheral Anaerobic Blood Culture - Final No growth in 5 days 10/09/18 15:23 Blood - Peripheral Aerobic Blood Culture - Final No growth in 5 days 10/09/18 15:23 Blood - Peripheral Anaerobic Blood Culture - Final No growth in 5 days 10/12/18 16:34 Wound - Breast Fungal Smear - Final No fungal elements seen 10/12/18 16:34 Wound - Breast Fungal Culture - Pending 10/12/18 16:34 Wound - Breast Acid Fast Bacilli Smear - Final No acid fast bacilli seen 10/12/18 16:34 Wound - Breast Mycobacterial Culture - Pending 10/12/18 16:34 Wound - Breast Gram Stain - Final 10/12/18 16:34 Wound - Breast Wound Culture - Preliminary Staphylococcus coag negative 10/09/18 15:23 Abscess - Breast Gram Stain - Final 10/09/18 15:23 Abscess - Breast Wound Culture - Final 10/09/18 15:23 Abscess - Breast Acid Fast Bacilli Smear - Final No acid fast bacilli seen 10/09/18 15:23 Abscess - Breast Mycobacterial Culture - Pending 10/09/18 15:23 Abscess - Breast Fungal Smear - Final No fungal elements seen 10/09/18 15:23 Abscess - Breast Fungal Culture - Pending Imaging: ITS Impressions Breast Ultrasound 10/10/18 08:00 CONCLUSION: 1. Extensive hyperemic, indurated tissue as described above concerning for residual abscess. This appears to be complex fluid with predominantly phlegmon. Physical Exam: GENERAL: NAD SKIN: Warm and dry. R BReast wound packed, dressing in place, intact HEAD: Atraumatic. Normocephalic. EYES: Pupils equal and round. No scleral icterus. No injection or drainage. ENT: No nasal bleeding or discharge. Mucous membranes pink and moist. NECK: Trachea midline. No JVD. CARDIOVASCULAR: Regular rate and rhythm. RESPIRATORY: No accessory muscle use. Clear to auscultation. GASTROINTESTINAL: Abdomen soft, non-tender, nondistended. MUSCULOSKELETAL: Extremities without clubbing, cyanosis, or edema. NEUROLOGICAL: Awake and alert. No obvious cranial nerve deficits. Motor grossly within normal limits. Five out of 5 muscle strength in the arms and legs. Normal speech. PSYCHIATRIC: Appropriate mood and affect Assessment and Plan - Plan Gram negative bactremia 2 D ehco negative IVDU Abscess R breast, vir strep , coag neg saph Coag neg staph bacteremia, low grade (1/4 bottles): no clin significance cont current abx fu clx untill final dw Dr Gordon
[2018-10-15] MEDS: Piperacil/Tazo 3.375 GM Premix 50 ML IV.SIG SCH ×3 (00:55→16:09)
[2018-10-15] MEDS: Gabapentin 300 MG Capsule PO SCH (08:21)
[2018-10-15] MEDS: Ibuprofen 400 MG Tablet PO PRN ×3 (08:21→21:59)
[2018-10-15] MEDS: Sodium Chloride 0.9% 2 ML Flush BID IV.FLUSH SCH ×2 (08:22→22:00)
--- NOTE | 2018-10-15 09:55 | P.PN ---
Subjective Interval history: no complains no breast pain no diarrhea good po Physical Exam Vital signs: Vital Signs 10/14/18 11:27 10/14/18 16:00 10/14/18 20:00 Temperature 98.1 F 98.1 F 98.0 F Pulse Rate 59 L 63 109 H Respiratory Rate 17 19 20 Blood Pressure 104/58 L 108/57 L 134/73 Pulse Oximetry 98 97 99 10/15/18 00:00 10/15/18 08:00 Temperature 98.7 F 98.3 F Pulse Rate 70 59 L Respiratory Rate 20 18 Blood Pressure 107/61 91/51 L Pulse Oximetry 99 99 Intake & Output 10/14/18 10/15/18 10/15/18 18:59 06:59 18:59 Intake Total 825 / 825 792.5 / 792.5 Balance 825 / 825 792.5 / 792.5 Weight 72.4 kg Intake: IV 100 / 100 312.5 / 312.5 Zosyn 3.375 GM Premix 50 ML @ 100 / 100 50 / 50 100 mls/hr IV.SIG Q8H [facility] Rx#: [id number] Vancomycin Inj 1,250 MG In NS 262.5 / 262.5 Inj 250 ML @ 250 mls/hr IV.SIG Q24H [facility] Rx#:[id number] Oral 725 / 725 480 / 480 Other: # Voids 6 3 Date of Last Bowel Movement 10/14/18 10/14/18 # Bowel Movements 1 Narrative: Alert and awake right breast-- no erythema, no tenderness, incison- with packing in place= dry, no surroundeing erythema lungs- clear abdomen soft Results - Labs CBC & Chem 7: 10/16/18 04:16 10/16/18 04:26 Microbiology 10/11/18 10:45 Blood - Peripheral Aerobic Blood Culture - Preliminary gram negative rods 10/11/18 10:45 Blood - Peripheral Anaerobic Blood Culture - Preliminary No growth in 3 days 10/11/18 10:55 Blood - Peripheral Aerobic Blood Culture - Preliminary No growth in 3 days 10/11/18 10:55 Blood - Peripheral Anaerobic Blood Culture - Preliminary No growth in 3 days 10/09/18 15:23 Blood - Peripheral Aerobic Blood Culture - Final Staphylococcus epidermidis 10/09/18 15:23 Blood - Peripheral Anaerobic Blood Culture - Final No growth in 5 days 10/09/18 15:23 Blood - Peripheral Aerobic Blood Culture - Final No growth in 5 days 10/09/18 15:23 Blood - Peripheral Anaerobic Blood Culture - Final No growth in 5 days 10/12/18 16:34 Wound - Breast Fungal Smear - Final No fungal elements seen 10/12/18 16:34 Wound - Breast Acid Fast Bacilli Smear - Final No acid fast bacilli seen 10/12/18 16:34 Wound - Breast Gram Stain - Final 10/12/18 16:34 Wound - Breast Wound Culture - Preliminary Staphylococcus coag negative Assessment and Plan - Plan 37-year-old female with Serratia Sepsis:secondary to Right breast Abscess S/P I and D- 10/12 exam- improved . 2D echo negative Continue Zosyn and vancomycin blood culture October 11, 2018- growing Serrratia wound culture- growing s epidermidies , AFB negative Appreciate input from infectious disease specialist breast ultrasound with finding of Extensive hyperemic, indurated tissue as described above concerning for residual abscess Infectious disease ff- will repeat Blood cultures in am to ensure clearance Leukocytosis-resolved From above and treatment as an above History of IVDU Extensively counseled against 2D echo without any vegetation UDS positive for cocaine Tobacco abuse Tobacco counseling cessation provided Continue nicotine patch DVT prophylaxis: SCDs patient up and ambulating OP ff up with PCP- Dr. Beasley- she gets her Suboxone from him
[2018-10-15] MEDS: Senna/Docusate Sodium 8.6/50 MG Tablet PO SCH ×2 (12:24→22:00)
[2018-10-15] MEDS: Vancomycin Inj 1,250 MG in Sodium Chlor 0.9% Inj 250 ML IV.SIG SCH (16:09)
[2018-10-16] MEDS: Piperacil/Tazo 3.375 GM Premix 50 ML IV.SIG SCH ×3 (00:19→17:41)
[2018-10-16] MEDS: Ibuprofen 400 MG Tablet PO PRN ×4 (04:16→21:20)
[2018-10-16 05:37] LABS: Baso % (Auto) 0.5 % (0.0-2.0); Eos # (Auto) 0.2 th/mm3 (0.0-0.4); Eos % (Auto) 2.1 % (0.0-4.0); Hematocrit 40.7 % (35.0-46.0); Hemoglobin 13.5 gm/dL (11.6-15.3); Lymph # (Auto) 3.5 th/mm3 (1.0-4.8); Lymph % (Auto) 35.4 % (9.0-44.0); Mean Corpuscular HGB Conc 33.2 % (32.0-36.0); Mean Corpuscular Hemoglobin 29.5 pg (27.0-34.0); Mean Corpuscular Volume 88.7 fL (80.0-100.0); Mean Platelet Volume 7.2 fL (7.0-11.0); Mono # (Auto) 0.5 th/mm3 (0.0-0.9); Neut # (Auto) 5.6 th/mm3 (1.8-7.7); Platelet Count 258 th/mm3 (150-450); Red Blood Count 4.58 mil/mm3 (4.00-5.30); Red Cell Distribution Width 12.5 % (11.6-17.2); White Blood Count 9.8 th/mm3 (4.0-11.0)
[2018-10-16 05:56] LABS: Calcium 8.7 mg/dL (8.5-10.1); Carbon Dioxide 29.5 meq/L (21.0-32.0); Potassium 3.7 meq/L (3.5-5.1)
[2018-10-16] MEDS: Gabapentin 300 MG Capsule PO SCH (09:19)
[2018-10-16] MEDS: Senna/Docusate Sodium 8.6/50 MG Tablet PO SCH ×2 (09:19→21:21)
--- NOTE | 2018-10-16 09:44 | P.PNIM ---
Subjective Interval history: Pt seen and examined for f/u right breast abscess. Denies any complaints. Reports she is feeling tired but otherwise well. Denies CP, SOB, abdominal pain , N/V. Tolerating PO. Ambulating. Physical Exam Vital signs: Vital Signs 10/15/18 12:00 10/15/18 16:00 10/15/18 20:00 Temperature 98.5 F 98.4 F 98.2 F Pulse Rate 64 63 70 Respiratory Rate 18 18 17 Blood Pressure 106/64 102/55 L 100/59 L Pulse Oximetry 100 97 97 10/16/18 00:00 10/16/18 08:00 Temperature 97.7 F 97.8 F Pulse Rate 59 L 58 L Respiratory Rate 17 14 Blood Pressure 104/51 L 99/58 L Pulse Oximetry 98 100 Intake & Output 10/15/18 10/16/18 10/16/18 18:59 06:59 18:59 Intake Total 362.5 / 362.5 770 / 770 Balance 362.5 / 362.5 770 / 770 Weight 72 kg Intake: IV 362.5 / 362.5 50 / 50 Zosyn 3.375 GM Premix 50 ML @ 100 / 100 50 / 50 100 mls/hr IV.SIG Q8H [facility] Rx#: [id number] Vancomycin Inj 1,250 MG In NS 262.5 / 262.5 Inj 250 ML @ 250 mls/hr IV.SIG Q24H [facility] Rx#:[id number] Oral 720 / 720 Other: # Voids 6 2 Date of Last Bowel Movement 10/15/18 10/15/18 # Bowel Movements 1 Narrative: GENERAL: WN, WD female resting in bed in [facility]. SKIN: Warm and dry. BREAST: R breast with dressing in place, C/D/I. HEART: RRR no m/r/g. LUNGS: CTAB without wheezes or crackles. ABDOMEN: +BS, soft, NT, ND. EXTREMITIES: No LE edema. 2+ pedal pulses. NEURO: Awake and alert. PSYCH: Appropriate mood and affect. Results - Labs CBC & Chem 7: 10/16/18 04:16 10/16/18 04:26 Laboratory Results - last 24 hr 10/16/18 10/16/18 04:16 04:26 WBC 9.8 RBC 4.58 Hgb 13.5 Hct 40.7 MCV 88.7 MCH 29.5 MCHC 33.2 RDW 12.5 Plt Count 258 D MPV 7.2 Neut % (Auto) 57.0 Lymph % (Auto) 35.4 Anderson % (Auto) 5.0 Eos % (Auto) 2.1 Baso % (Auto) 0.5 Neut # (Auto) 5.6 Lymph # (Auto) 3.5 Anderson # (Auto) 0.5 Eos # (Auto) 0.2 Baso # (Auto) 0.0 WBC Differential . Differential Comment Auto diff final Sodium 140 Potassium 3.7 Chloride 104 Carbon Dioxide 29.5 Anion Gap 7 BUN 15 Creatinine 1.07 H Estimated GFR 58 L Random Glucose 75 Calcium 8.7 Microbiology 10/11/18 10:45 Blood - Peripheral Aerobic Blood Culture - Final Serratia marcescens 10/11/18 10:45 Blood - Peripheral Anaerobic Blood Culture - Preliminary No growth in 4 days 10/12/18 16:34 Wound - Breast Gram Stain - Final 10/12/18 16:34 Wound - Breast Wound Culture - Final Staphylococcus epidermidis 10/11/18 10:55 Blood - Peripheral Aerobic Blood Culture - Preliminary No growth in 4 days 10/11/18 10:55 Blood - Peripheral Anaerobic Blood Culture - Preliminary No growth in 4 days Assessment and Plan - Assessment (1) Abscess of breast, right Code(s): N61.1 - Abscess of the breast and nipple Status: Acute - Plan 37 year old female with history of IVDU admitted on 10/09 for sepsis secondary to right breast abscess after injecting heroin into her right nipple a week prior. 1. Sepsis, resolved - Met criteria on admission based on leukocytosis, tachycardia, and source of infection - Lactic acid WNL - S/P broad spectrum IV antibiotics - Blood culture from 10/09 growing Staph epi in 12/02, likely contaminant - Repeat blood culture from 10/11 growing Serratia marcescens in 1 2. Bacteremia - Culture from 10/11 growing GNR in 12/02, found to be Serratia - Repeat cultures drawn 10/16 pending - 2D echo negative - ID following - On vanco and Zosyn 3. Right breast abscess - General surgery following, s/p I&D on 10/[address] and daily dressing changes. Cleared per surgery once on oral abx - ID following - On vanco and Zosyn - Pain control 4. IV drug use - UDS positive for cocaine and patient admits to injecting heroin - Previously extensively counseled against 5. Tobacco abuse - Tobacco counseling cessation previously provided - Continue nicotine patch DVT prophylaxis: SCDs, patient up and ambulating Discharge Planning: Once on PO antibiotics and repeat blood cultures finalized
[2018-10-16] MEDS: Sodium Chloride 0.9% 2 ML Flush BID IV.FLUSH SCH ×2 (10:00→21:21)
[2018-10-16] MEDS: Vancomycin Inj 1,250 MG in Sodium Chlor 0.9% Inj 250 ML IV.SIG SCH (16:07)
[2018-10-17] MEDS: Piperacil/Tazo 3.375 GM Premix 50 ML IV.SIG SCH ×3 (02:28→17:31)
[2018-10-17] MEDS: Ibuprofen 400 MG Tablet PO PRN ×4 (02:34→21:31)
[2018-10-17 05:40] LABS: Calcium 8.9 mg/dL (8.5-10.1); Carbon Dioxide 23.4 meq/L (21.0-32.0); Potassium 3.3 meq/L (3.5-5.1)
[2018-10-17] MEDS: Gabapentin 300 MG Capsule PO SCH (09:08)
[2018-10-17] MEDS: Sodium Chloride 0.9% 2 ML Flush BID IV.FLUSH SCH ×2 (09:10→21:32)
[2018-10-17] MEDS: Senna/Docusate Sodium 8.6/50 MG Tablet PO SCH ×2 (09:10→21:33)
--- NOTE | 2018-10-17 15:29 | P.PN ---
Subjective Interval history: Patient is in bed. Some fevers overnight, no chills. Pain is fairly controlled by medications. She can move her right arm. No nausea vomiting or diarrhea constipation. Physical Exam Vital signs: Vital Signs 10/16/18 16:00 10/16/18 20:00 10/16/18 22:59 Temperature 99.0 F 98.2 F Pulse Rate 78 71 Respiratory Rate 18 17 16 Blood Pressure 126/75 116/56 L Pulse Oximetry 99 97 10/16/18 23:00 10/17/18 00:00 10/17/18 08:00 Temperature 97.8 F 98.8 F Pulse Rate 64 97 H Respiratory Rate 16 17 17 Blood Pressure 109/58 L 162/91 H Pulse Oximetry 100 99 10/17/18 12:00 Temperature 98.8 F Pulse Rate 111 H Respiratory Rate 17 Blood Pressure 152/91 H Pulse Oximetry 100 Intake & Output 10/16/18 10/17/18 10/17/18 18:59 06:59 18:59 Intake Total 3762.5 / 3762.5 530 / 530 50 / 50 Balance 3762.5 / 3762.5 530 / 530 50 / 50 Weight 72 kg Intake: IV 362.5 / 362.5 50 / 50 50 / 50 Zosyn 3.375 GM Premix 50 ML @ 100 / 100 50 / 50 50 / 50 100 mls/hr IV.SIG Q8H [facility] Rx#: [id number] Vancomycin Inj 1,250 MG In NS 262.5 / 262.5 Inj 250 ML @ 250 mls/hr IV.SIG Q24H [facility] Rx#:[id number] Oral 3400 / 3400 480 / 480 Other: # Voids 5 2 # Bowel Movements 1 Narrative: GENERAL: 37-year-old female resting in bed in [facility]. SKIN: Warm and dry. BREAST: R breast with dressing in place, C/D/I. HEART: RRR no m/r/g. LUNGS: CTAB without wheezes or crackles. ABDOMEN: +BS, soft, NT, ND. EXTREMITIES: No LE edema. 2+ pedal pulses. NEURO: Awake and alert. PSYCH: Appropriate mood and affect. Results - Labs CBC & Chem 7: 10/16/18 04:16 10/17/18 04:30 Laboratory Results - last 24 hr 10/17/18 04:30 Sodium 137 Potassium 3.3 L Chloride 101 Carbon Dioxide 23.4 Anion Gap 13 BUN 15 Creatinine 1.24 H Estimated GFR 49 L Random Glucose 104 Calcium 8.9 Microbiology 10/16/18 11:30 Blood - Peripheral Aerobic Blood Culture - Preliminary No growth in 1 day 10/16/18 11:30 Blood - Peripheral Anaerobic Blood Culture - Preliminary No growth in 1 day 10/16/18 04:26 Blood - Peripheral Aerobic Blood Culture - Preliminary No growth in 1 day 10/16/18 04:26 Blood - Peripheral Anaerobic Blood Culture - Preliminary No growth in 1 day 10/11/18 10:55 Blood - Peripheral Aerobic Blood Culture - Final No growth in 5 days 10/11/18 10:55 Blood - Peripheral Anaerobic Blood Culture - Final No growth in 5 days 10/11/18 10:45 Blood - Peripheral Aerobic Blood Culture - Final Serratia marcescens 10/11/18 10:45 Blood - Peripheral Anaerobic Blood Culture - Final No growth in 5 days Assessment and Plan - Assessment (1) Abscess of breast, right Code(s): N61.1 - Abscess of the breast and nipple Status: Acute - Plan 37 year old female with history of IVDU admitted on 10/09 for sepsis secondary to right breast abscess after injecting heroin into her right nipple a week prior. 1. Sepsis, resolved - Met criteria on admission based on leukocytosis, tachycardia, and source of infection - Lactic acid WNL - S/P broad spectrum IV antibiotics - Blood culture from 10/09 growing Staph epi in 12/02, likely contaminant - Repeat blood culture from 10/11 growing Serratia marcescens in 12/02 2. Bacteremia - Culture from 10/11 growing GNR in 12/02, found to be Serratia - Repeat cultures drawn 10/16 pending - 2D echo negative - ID following - On vanco and Zosyn 3. Right breast abscess - General surgery following, s/p I&D on 10/[address] and daily dressing changes. Cleared per surgery once on oral abx - ID following - On vanco and Zosyn - Pain control 4. IV drug use - UDS positive for cocaine and patient admits to injecting heroin - Previously extensively counseled against 5. Tobacco abuse - Tobacco counseling cessation previously provided - Continue nicotine patch DVT prophylaxis: SCDs, patient up and ambulating Discharge Planning: When improves, cleared by surgeon and ID. DC once on PO antibiotics and repeat blood cultures finalized
[2018-10-17] MEDS: Vancomycin Inj 1,250 MG in Sodium Chlor 0.9% Inj 250 ML IV.SIG SCH (15:34)
[2018-10-18] MEDS: Piperacil/Tazo 3.375 GM Premix 50 ML IV.SIG SCH ×2 (01:01→08:24)
[2018-10-18] MEDS: Ibuprofen 400 MG Tablet PO PRN ×3 (03:27→15:30)
[2018-10-18 07:21] LABS: Carbon Dioxide 27.1 meq/L (21.0-32.0); Potassium 3.9 meq/L (3.5-5.1)
[2018-10-18] MEDS: Gabapentin 300 MG Capsule PO SCH (08:24)
[2018-10-18] MEDS: Senna/Docusate Sodium 8.6/50 MG Tablet PO SCH (08:24)
[2018-10-18] MEDS: Sodium Chloride 0.9% 2 ML Flush BID IV.FLUSH SCH (08:25)
--- NOTE | 2018-10-18 13:30 | P.PN ---
Subjective Interval history: She is in bed says she has pain and asking for more pain medications. However she does not appear in acute distress and she was sleeping when I enter the room. No fever or chills overnight. No nausea or vomiting. Eating fairly well. Physical Exam Vital signs: Vital Signs 10/17/18 16:00 10/17/18 20:00 10/18/18 00:00 Temperature 99.1 F 99.6 F 98.2 F Pulse Rate 97 H 103 H 78 Respiratory Rate 17 20 18 Blood Pressure 147/90 H 125/67 132/75 Pulse Oximetry 99 97 99 10/18/18 06:16 10/18/18 08:00 10/18/18 12:00 Temperature 97.6 F 98.2 F Pulse Rate 74 81 Respiratory Rate 16 18 18 Blood Pressure 136/83 142/86 H Pulse Oximetry 98 99 Intake & Output 10/17/18 10/18/18 10/18/18 18:59 06:59 18:59 Intake Total 1162.5 / 1162.5 100 / 100 Balance 1162.5 / 1162.5 100 / 100 Weight 68.8 kg Intake: IV 362.5 / 362.5 100 / 100 Zosyn 3.375 GM Premix 50 ML @ 100 / 100 100 / 100 100 mls/hr IV.SIG Q8H [facility] Rx#: [id number] Vancomycin Inj 1,250 MG In NS 262.5 / 262.5 Inj 250 ML @ 250 mls/hr IV.SIG Q24H [facility] Rx#:[id number] Oral 800 / 800 Other: # Voids 5 3 # Bowel Movements 2 Narrative: GENERAL: 37-year-old female resting in bed in [facility]. SKIN: Warm and dry. BREAST: R breast with dressing in place, C/D/I. HEART: RRR no m/r/g. LUNGS: CTAB without wheezes or crackles. ABDOMEN: +BS, soft, NT, ND. EXTREMITIES: No LE edema. 2+ pedal pulses. NEURO: Awake and alert. PSYCH: Appropriate mood and affect. Results - Labs CBC & Chem 7: 10/16/18 04:16 10/18/18 05:51 Laboratory Results - last 24 hr 10/18/18 05:51 Sodium 138 Potassium 3.9 Chloride 104 Carbon Dioxide 27.1 Anion Gap 7 BUN 13 Creatinine 0.99 Estimated GFR 63 L Random Glucose 82 Calcium 9.0 Microbiology 10/16/18 11:30 Blood - Peripheral Aerobic Blood Culture - Preliminary No growth in 2 days 10/16/18 11:30 Blood - Peripheral Anaerobic Blood Culture - Preliminary No growth in 2 days 10/16/18 04:26 Blood - Peripheral Aerobic Blood Culture - Preliminary No growth in 2 days 10/16/18 04:26 Blood - Peripheral Anaerobic Blood Culture - Preliminary No growth in 2 days Assessment and Plan - Assessment (1) Abscess of breast, right Code(s): N61.1 - Abscess of the breast and nipple Status: Acute - Plan 37 year old female with history of IVDU admitted on 10/09 for sepsis secondary to right breast abscess after injecting heroin into her right nipple a week prior. 1. Sepsis, resolved - Met criteria on admission based on leukocytosis, tachycardia, and source of infection - Lactic acid WNL - S/P broad spectrum IV antibiotics - Blood culture from 10/09 growing Staph epi in 12/02, likely contaminant - Repeat blood culture from 10/11 growing Serratia marcescens in 12/02 2. Bacteremia - Culture from 10/11 growing GNR in 12/02, found to be Serratia - Repeat cultures drawn 10/16 pending - 2D echo negative - ID following - On vanco and Zosyn 3. Right breast abscess - General surgery following, s/p I&D on 10/[address] and daily dressing changes. Cleared per surgery once on oral abx - ID following - On vanco and Zosyn - Pain control 4. IV drug use - UDS positive for cocaine and patient admits to injecting heroin - Previously extensively counseled against 5. Tobacco abuse - Tobacco counseling cessation previously provided - Continue nicotine patch DVT prophylaxis: SCDs, patient up and ambulating Discharge Planning: When improves, cleared by surgeon and ID. DC once on PO antibiotics and repeat blood cultures finalized
[2018-10-18] MEDS: Vancomycin Inj 1,250 MG in Sodium Chlor 0.9% Inj 250 ML IV.SIG SCH (15:36)
--- NOTE | 2018-10-18 15:57 | P.PNID ---
Subjective Remarks: Serratia in the blood / bottles only doing OK ow Essentially afebrile Antibiotics: vanco zosyn Allergies/Adverse Reactions: Allergies No Known Allergies Allergy (Verified 08/25/18 13:53) Objective Vital Signs 10/17/18 16:00 10/17/18 20:00 10/18/18 00:00 Temperature 99.1 F 99.6 F 98.2 F Pulse Rate 97 H 103 H 78 Respiratory Rate 17 20 18 Blood Pressure 147/90 H 125/67 132/75 Pulse Oximetry 99 97 99 10/18/18 06:16 10/18/18 08:00 10/18/18 12:00 Temperature 97.6 F 98.2 F Pulse Rate 74 81 Respiratory Rate 16 18 18 Blood Pressure 136/83 142/86 H Pulse Oximetry 98 99 Intake & Output 10/17/18 10/18/18 10/18/18 18:59 06:59 18:59 Intake Total 1162.5 / 1162.5 100 / 100 Balance 1162.5 / 1162.5 100 / 100 Weight 68.8 kg Intake: IV 362.5 / 362.5 100 / 100 Zosyn 3.375 GM Premix 50 ML @ 100 / 100 100 / 100 100 mls/hr IV.SIG Q8H LATRICIA Rx#: [id number] Vancomycin Inj 1,250 MG In NS 262.5 / 262.5 Inj 250 ML @ 250 mls/hr IV.SIG Q24H LATR[facility]IA Rx#:[id number] Oral 800 / 800 Other: # Voids 5 3 # Bowel Movements 2 10/09/18 15:23 Abscess - Breast Fungal Smear - Final No fungal elements seen 10/09/18 15:23 Abscess - Breast Fungal Culture - Preliminary No growth in 1 week 10/09/18 15:23 Abscess - Breast Acid Fast Bacilli Smear - Final No acid fast bacilli seen 10/09/18 15:23 Abscess - Breast Mycobacterial Culture - Preliminary No growth in 1 week 10/16/18 11:30 Blood - Peripheral Aerobic Blood Culture - Preliminary No growth in 2 days 10/16/18 11:30 Blood - Peripheral Anaerobic Blood Culture - Preliminary No growth in 2 days 10/16/18 04:26 Blood - Peripheral Aerobic Blood Culture - Preliminary No growth in 2 days 10/16/18 04:26 Blood - Peripheral Anaerobic Blood Culture - Preliminary No growth in 2 days 10/11/18 10:55 Blood - Peripheral Aerobic Blood Culture - Final No growth in 5 days 10/11/18 10:55 Blood - Peripheral Anaerobic Blood Culture - Final No growth in 5 days 10/11/18 10:45 Blood - Peripheral Aerobic Blood Culture - Final Serratia marcescens 10/11/18 10:45 Blood - Peripheral Anaerobic Blood Culture - Final No growth in 5 days 10/12/18 16:34 Wound - Breast Gram Stain - Final 10/12/18 16:34 Wound - Breast Wound Culture - Final Staphylococcus epidermidis Lab - Chemistry Results 10/17/18 10/18/18 04:30 05:51 Sodium 137 138 Potassium 3.3 L 3.9 Chloride 101 104 Carbon Dioxide 23.4 27.1 Anion Gap 13 7 BUN 15 13 Creatinine 1.24 H 0.99 Estimated GFR 49 L 63 L Random Glucose 104 82 Calcium 8.9 9.0 Imaging: ITS Impressions Breast Ultrasound 10/10/18 08:00 CONCLUSION: 1. Extensive hyperemic, indurated tissue as described above concerning for residual abscess. This appears to be complex fluid with predominantly phlegmon. Physical Exam: GENERAL: NAD SKIN: Warm and dry. R BReast wound packed, dressing in place, intact complete resolution of redness, induration HEAD: Atraumatic. Normocephalic. EYES: Pupils equal and round. No scleral icterus. No injection or drainage. ENT: No nasal bleeding or discharge. Mucous membranes pink and moist. CARDIOVASCULAR: Regular rate and rhythm. No murmrus RESPIRATORY: No accessory muscle use. Clear to auscultation. GASTROINTESTINAL: Abdomen soft, non-tender, nondistended. MUSCULOSKELETAL: Extremities without clubbing, cyanosis, or edema. NEUROLOGICAL: Awake and alert. No n focal PSYCHIATRIC: Appropriate mood and affect Assessment and Plan - Plan Serratia bactremia 2 D echo negative IVDU Abscess R breast, vir strep , coag neg saph Coag neg staph bacteremia, low grade (1/4 bottles): no clin significance dc zosyn, vancomycin Levaquin x 10 more days OK to dc home today dw case mngr dw Dr Funes
--- NOTE | 2018-10-18 16:08 | P.DS ---
Date of admission: 10/09/18 17:24 Primary care physician: UNKNOWN Brief History from admission: 37 years old female with history of IVDU, presented to the ED for evaluation of right breast pain times 2-day duration rated over 6 in intensity. Patient states about 2-3 days ago she injected to her right nipple some opioid , mainly heroin. Then she noted breast pain, hardening and swelling of the nipple associated with erythema. She also endorses subjective fever. Patient states, over the past 20 years she has been battling with addiction. She was hospitalized for abscesses secondary to IV drug use. She currently denies any . She smokes 1 pack/day and denies any alcohol use. She denies any prostitution. She has no GI bleed, chest pain or shortness of breath. DS: Diagnosis - Discharge Diagnosis (1) Abscess of breast, right Status: Acute DS: Medications - Discharge Medications Prescriptions: levofloxacin [Levaquin] 750 mg PO DAILY #10 tab DS: Summary Hospital Course: 37 year old female with history of IVDU admitted on 10/09 for sepsis secondary to right breast abscess after injecting heroin into her right nipple a week prior. 1. Sepsis, resolved - Met criteria on admission based on leukocytosis, tachycardia, and source of infection - Lactic acid WNL - S/P broad spectrum IV antibiotics - Blood culture from 10/09 growing Staph epi in 12/02, likely contaminant - Repeat blood culture from 10/11 growing Serratia marcescens in 12/02 2. Bacteremia. To have po abx at [place] levaquin 750 mg po daily for 10 days - Culture from 10/11 growing GNR in 12/02, found to be Serratia - Repeat cultures drawn 10/16 pending - 2D echo negative - ID following - On vanco and Zosyn 3. Right breast abscess - General surgery following, s/p I&D on 10/[address] and daily dressing changes. Cleared per surgery once on oral abx - ID following - On vanco and Zosyn - Pain control 4. IV drug use - UDS positive for cocaine and patient admits to injecting heroin - Previously extensively counseled against 5. Tobacco abuse - Tobacco counseling cessation previously provided - Continue nicotine patch DVT prophylaxis: SCDs, patient up and ambulating Improving. Cleared by consultants for DC. DC home in stable condition to f/up as OP with PCP and consultants. - Time Spent with Patient Total time spent providing and/or coordinating discharge services: Greater than 30 minutes - Quality: VTE Deep Vein Thrombosis/Pulmonary Embolism Present on Admission: No Exam Vital signs: Vital Signs 10/17/18 20:00 10/18/18 00:00 10/18/18 06:16 Temperature 99.6 F 98.2 F Pulse Rate 103 H 78 Respiratory Rate 20 18 16 Blood Pressure 125/67 132/75 Pulse Oximetry 97 99 10/18/18 08:00 10/18/18 12:00 Temperature 97.6 F 98.2 F Pulse Rate 74 81 Respiratory Rate 18 18 Blood Pressure 136/83 142/86 H Pulse Oximetry 98 99 Intake & Output 10/17/18 10/18/18 10/18/18 18:59 06:59 18:59 Intake Total 1162.5 / 1162.5 100 / 100 Balance 1162.5 / 1162.5 100 / 100 Weight 68.8 kg Intake: IV 362.5 / 362.5 100 / 100 Zosyn 3.375 GM Premix 50 ML @ 100 / 100 100 / 100 100 mls/hr IV.SIG Q8H [facility] Rx#: [id number] Vancomycin Inj 1,250 MG In NS 262.5 / 262.5 Inj 250 ML @ 250 mls/hr IV.SIG Q24H [facility] Rx#:[id number] Oral 800 / 800 Other: # Voids 5 3 # Bowel Movements 2 Narrative: GENERAL: 37-year-old female resting in bed in [facility]. SKIN: Warm and dry. BREAST: R breast with dressing in place, C/D/I. HEART: RRR no m/r/g. LUNGS: CTAB without wheezes or crackles. ABDOMEN: +BS, soft, NT, ND. EXTREMITIES: No LE edema. 2+ pedal pulses. NEURO: Awake and alert. PSYCH: Appropriate mood and affect. Results Procedures completed during hospitalization: incision and drainage of abscess right breast by Dr Ceron Completed studies during hospitalization: Pending at discharge 10/12/18 07:48 Surgical [PTH] Routine Labs on day of discharge: Labs from last 24 hours 10/18/18 05:51 Sodium 138 Potassium 3.9 Chloride 104 Carbon Dioxide 27.1 Anion Gap 7 BUN 13 Creatinine 0.99 Estimated GFR 63 L Random Glucose 82 Calcium 9.0 Preliminary micro results at discharge 10/09/18 15:23 Fungal Culture - Preliminary Abscess - Breast No growth in 1 week 10/09/18 15:23 Mycobacterial Culture - Preliminary Abscess - Breast No growth in 1 week 10/16/18 11:30 Aerobic Blood Culture - Preliminary Blood - Peripheral No growth in 2 days Anaerobic Blood Culture - Preliminary No growth in 2 days 10/16/18 04:26 Aerobic Blood Culture - Preliminary Blood - Peripheral No growth in 2 days Anaerobic Blood Culture - Preliminary No growth in 2 days - Impressions ITS Impressions Breast Ultrasound 10/10/18 08:00 CONCLUSION: 1. Extensive hyperemic, indurated tissue as described above concerning for residual abscess. This appears to be complex fluid with predominantly phlegmon. Discharge Plan - Discharge Disposition Patient Disposition: 01 Discharge Home - Discharge Condition Condition: Stable - Discharge Order Discharge Orders: Discharge Order (Routine); Ordered 10/18/18 Ordered By: Beth Funes - Discharge Details Anticipated Discharge Date: 10/18/18 - Physicians Team Primary Care Provider: UNKNOWN, Attending Provider: Beth Funes Other Providers: Amandeep Ceron MD ; Ethel Shelton MD
== END 2018-10-18 19:02 | disposition home or self-care (01) ==
LOC: NEPD 12:35 → NEDH 17:24 → N07 18:39
PROVIDERS: ADMIT Hospitalist; ATTEND Hospitalist